=== PATIENT | female | born 1950 | race Caucasian/White ===

== ENCOUNTER 2019-06-10 05:21 | Emergency (ER) | payer BC, MEDICARE ==
[~2019-06-10] VITALS: Ht 154.9 cm; Wt 64.0 kg
[2019-06-10] MEDS ORDERED: VERAPAMIL ER180 MG PO (05:36)
[2019-06-10] MEDS ORDERED: HYDROCHLOROTH12.5 MG PO (05:37)
[2019-06-10] MEDS ORDERED: PANCREAZE DR 11 EAC3 PO (05:42)
--- OUTSIDE RECORDS SUMMARY | 2019-06-10 06:30 | XMS ---
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 Annabel VISIT COUNT (12 MO.) 2 [facility] 1 CHITO Tabor TOTAL 3 NOTE: Visits indicate total known visits. ED/UCC VISIT TRACKING (12 MO.) 06/10/2019 05:22 [facility] TYPE: Emergency COMPLAINT: - BACK PAIN [facility] DIAGNOSES: - Dorsalgia, unspecified - Pain - severe nerve pain 04/20/2019 18[facility] DIAGNOSES: - back pain - Spinal stenosis, lumbar region without neurogenic sierra - Lumbago with sciatica, unspecified side INPATIENT VISIT TRACKING (12 MO.) No inpatient visits to display in this time frame [id number]
== END 2019-06-10 06:29 | disposition home or self-care (01) ==
LOC: ED 05:21
DX: G89.29 Other chronic pain (principal); M54.5 Low back pain; F17.200 Nicotine dependence, unspecified, uncomplicated; Z88.8 Allergy status to other drugs, medicaments and biological substances; Z88.5 Allergy status to narcotic agent; Z79.899 Other long term (current) drug therapy
CPT/HCPCS: 99283

== ENCOUNTER 2019-08-12 01:05 | Emergency (ER) | payer BC, MEDICARE ==
[~2019-08-12] VITALS: Ht 154.9 cm; Wt 64.0 kg
--- OUTSIDE RECORDS SUMMARY | ~2019-08-12 | XMS | Encounter Summary ---
Demographics + + + | Address | [address] | | | [place] [address] | + + + | Home Phone | | + + + | Preferred Language | Unknown | + + + | Marital Status | | + + + | Temple Affiliation | 1073 | + + + | Race | Unknown | + + + | Ethnic Group | Unknown | + + + Author + + + | Author | [facility] | | | and Vaughn | + + + | Organization | [facility] | | | and [place] | + + + | Address | Unknown | + + + | Phone | Unavailable | + + + Support + + + + + | Name | Relationship | Address | Phone | + + + + + | Dennis Almazan | KARYN | [address] | | | | | [place] | | | | | [address] | | + + + + + | Jesus Chanel | KARYN | [address] | | | | | [place] [address] | | + + + + + Care Team Providers + +------+ + | Care Milieu Therapist Name | Role | Phone | + +------+ + | Geraldo Montano MD | PCP | | + +------+ + Reason for Visit +---------+ + | Reason | Comments | +---------+ + | Imaging | Orders | +---------+ + Encounter Details +--------+ + + + + | Date | Type | Department | Care Team | Description | +--------+ + + + + | 07/19/ | Telephone | [facility] | João Hill, | Imaging (Orders) | | 2020 | | NEUROSURGERY [address] | | | | | [address] | [address] | | | | | [place], [place] | [place] [address] | | | | | [address] | [phone] | | | | | [phone] | | | +--------+ + + + + Social History + + + +--------+ + | Tobacco Use | Types | Packs/Day | Years | Date | | | | | Used | | + + + +--------+ + | Current Every Day | Cigarettes | 1 | 42 | Started: 02/02/1976 | | Smoker | | | | | + + + +--------+ + + +---+---+---+ | Smokeless Tobacco: | | | | | Never Used | | | | + +---+---+---+ + + +---------+ + | Alcohol Use | Drinks/Week | oz/Week | Comments | + + +---------+ + | No | | | | + + +---------+ + + + + | Sex Assigned at | Date Recorded | | | | + + + | Not on file | | + + + + + + + | Job Start Date | Occupation | Industry | + + + + | Not on file | Not on file | Not on file | + + + + + + + + | Travel History | Travel Start | Travel End | + + + + + + | No recent travel history available. | + + documented as of this encounter Plan of Treatment +--------+---------+ + + + | Date | Type | Specialty | Care Team | Description | +--------+---------+ + + + | 08/13/ | Office | Neurosurgery | João Hill, | | | 2019 | Visit | | [address] | | | | | | [address] | | | | | | [place] [address] | | | | | | [phone] | | | | | | | | +--------+---------+ + + + documented as of this encounter Visit Diagnoses Not on filedocumented in this encounter"
--- OUTSIDE RECORDS SUMMARY | ~2019-08-12 | XMS | Encounter Summary ---
Demographics + + + | Address | [address] | | | [place] [address] | + + + | Home Phone | | + + + | Preferred Language | Unknown | + + + | Marital Status | | + + + | Yarsanism Affiliation | 1073 | + + + | Race | Unknown | + + + | Ethnic Group | Unknown | + + + Author + + + | Author | [facility] | | | and Vaughn | + + + | Organization | [facility] | | | and [...] [place] | | | | | [address] | | + + + + + | Jesus Chanel | ECON | [address] | | | | | [place] [address] | | + + + + + Care Team Providers + +------+ + | Care Petal Cutter Name | Role | Phone | + +------+ + PCP | Unavailable | + +------+ + Encounter Details +--------+ + + + + | Date | Type | Department | Care Team | Description | +--------+ + + + + | 05/07/ | Hospital | [facility] | | | | 2000 | Encounter | MED CTR XRAY [address] | | | | | | [address] | | | | | | [place] [address] | | | | | | [phone] | | | +--------+ + + + + Social History + +-------+ +--------+------+ | Tobacco Use | Types | Packs/Day | Years | Date | | | | | Used | | + +-------+ +--------+------+ | Never Assessed | | | | | + +-------+ +--------+------+ + + + | Sex Assigned at [...] Neurosurgery | João Hill, | | | 2020 | Visit | | [address] | | | | | | [address] | | | | | | [place] [address] | | | | | | [phone] | | | | | | | | +--------+---------+ + + + documented as of this encounter Visit Diagnoses Not on filedocumented in this encounter"
--- OUTSIDE RECORDS SUMMARY | ~2019-08-12 | XMS | Encounter Summary ---
Demographics + + + | Address | [address] | | | [place] [address] | + + + | Home Phone | | + + + | Preferred Language | Unknown | + + + | Marital Status | | + + + | Yazdanism Affiliation | 1073 | + + + | Race | Unknown | + + + | Ethnic Group | Unknown | + + + Author + + + | Author | [facility] | | | and [place]n | + + + | Organization | [facility] | | | and [...] [place] | | | | | [address] | | + + + + + | Jesus Chanel | ECON | [address] | | | | | [place] [address] | | + + + + + Care Team Providers + +------+ + | Care Hydraulic Press Tender Name | Role | Phone | + +------+ + PCP | Unavailable | + +------+ + Encounter Details +--------+ + + + + | Date | Type | Department | Care Team | Description | +--------+ + + + + | 05/09/ | Hospital | [facility] | | | | 2000 | Encounter | MED CTR EMERGENCY | | | | | | CENTER [address] | | | | | | [place] | | | | | | [address] | | | | | | [phone] | | | +--------+ + + + [...] B | | | | | | [place] [address] | | | | | | [phone] | | | | | | | | +--------+---------+ + + + documented as of this encounter Visit Diagnoses Not on filedocumented in this encounter"
--- OUTSIDE RECORDS SUMMARY | ~2019-08-12 | XMS | Encounter Summary ---
Demographics + + + | Address | [address] | | | [place] [address] | + + + | Home Phone | | + + + | Preferred Language | Unknown | + + + | Marital Status | | + + + | Anglican Affiliation | 1073 | + + + | Race | Unknown | + + + | Ethnic Group | Unknown | + + + Author + + + | Author | [facility] | | | and [place]n | + + + | Organization | [facility] | | | [...] [place] | | | | | [address] | | + + + + + | Jesus Chanel | ECON | [address] | | | | | [place] [address] | | + + + + + Care Team Providers + +------+ + | Care Case Picker Name | Role | Phone | + +------+ + | Geraldo Montano MD | PCP | | + +------+ + Reason for Referral Diagnostic/Screening (Emergency) +--------+--------+ + + + + | Status | Reason | Specialty | Diagnoses / | Referred By | Referred To | | | | | Procedures | Contact | Contact | +--------+--------+ + + + + | Closed | | Radiology | Diagnoses | Aquino, | [facility] | | | | | Neurogenic | Faustino Alejandre MD | [address] | | | | | bowel Full | [address] | [place], | | | | | incontinence | [address] | [place] | | | | | of feces | [place], | [address] | | | | | Chronic | [place] [address] | Phone: | | | | | midline low | Phone: | [phone] | | | | | back pain | [phone] | Fax: | | | | | with | Fax: | [phone] | | | | | bilateral | [phone] | | | | | | sciatica | | | | | | | Hyperreflexi | | | | | | | a Right leg | | | | | | | weakness | | | | | | | Numbness and | | | | | | | tingling of | | | | | | | both lower | | | | | | | extremities | | | | | | | | | | | | | | Fibromyalgia | | | | | | | Procedures | | | | | | | MRI Lumbar | | | | | | | Spine w wo | | | | | | | Contrast | | | +--------+--------+ + + + + Reason for Visit Diagnostic/Screening (Emergency) +--------+--------+ + + + + | Status | Reason | Specialty | Diagnoses / | Referred By | Referred To | | | | | Procedures | Contact | Contact | +--------+--------+ + + + + | Closed | | Radiology | Diagnoses | Aquino, | [facility] | | | | | Neurogenic | Faustino Alejandre MD | [address] | | | | | bowel Full | [address] | [place], | | | | | incontinence | [address] | [place] | | | | | of feces | [place], | [address] | | | | | Chronic | [place] [address] | Phone: | | | | | midline low | Phone: | [phone] | | | | | back pain | [phone] | Fax: | | | | | with | Fax: | [phone] | | | | | bilateral | [phone] | | | | | | sciatica | | | | | | | Hyperreflexi | | | | | | | a Right leg | | | | | | | weakness | | | | | | | Numbness and | | | | | | | tingling of | | | | | | | both lower | | | | | | | extremities | | | | | | | | | | | | | | Fibromyalgia | | | | | | | Procedures | | | | | | | MRI Lumbar | | | | | | | Spine w wo | | | | | | | Contrast | | | +--------+--------+ + + + + Encounter Details +--------+ + + + + | Date | Type | Department | Care Team | Description | +--------+ + + + + | 03/07/ | Hospital | [facility] | Faustino Aquino, | Neurogenic bowel; | | 2018 | Encounter | MED CTR MRI [address] | MD [address] | Full incontinence of | | | | [place], | [place], [place] | feces; Chronic | | | | [place] [address] | [address] | midline low back | | | | [phone] | | pain with bilateral | | | | | | sciatica; | | | | | | Hyperreflexia; Right | | | | | | leg weakness; | | | | | | Numbness and | | | | | | tingling of both | | | | | | lower extremities; | | | | | | Fibromyalgia | +--------+ + + + + Social History + + + +--------+ + | Tobacco Use | Types | Packs/Day | Years | Date | | | | | Used | | + + + +--------+ + | Current Every Day | Cigarettes | 1.5 | 42 | Started: 02/02/1976 | | [...] + + documented as of this encounter Medications at Time of Discharge + + + +---------+ + + | Medication | Sig | Dispensed | Refills | Start | End Date | | | | | | Date | | + + + +---------+ + + | cyanocobalamin | Take 100 mcg by | | 0 | | | | (VITAMIN B-12) 100 | mouth Daily. | | | | | | MCG tablet | | | | | | + + + +---------+ + + | Liniments | Apply topically. | | 0 | | | | (THERAPEUTIC BLUE | | | | | | | ICE EX) | | | | | | + + + +---------+ + + | tocopherol | Take 400 Units by | | 0 | | | | (VITAMIN E) 100 | mouth Daily. Take 2 | | | | | | units capsule | daily | | | | | + + + +---------+ + + | verapamil (CALAN | Take 180 mg by mouth | | 0 | 06/01/19 | | | SR) 180 mg SR tablet | 2 times daily. | | | 18 | | + + + +---------+ + + | B complex vitamins | Take 1 tablet by | | 0 | | | | tablet | mouth Daily. | | | | 9 | + + + +---------+ + + | cholecalciferol | Take 1 capsule by | | 0 | | | | (VITAMIN D-3) 1,000 | mouth Daily. | | | | 0 | | units capsule | | | | | | + + + +---------+ + + | clonazePAM | Take 0.5 mg by mouth | | 0 | 06/08/19 | | | (KLONOPIN) 0.5 mg | 3 times daily as | | | 18 | 0 | | tablet | needed. For Anxiety | | | | | | | or seizures. Fill | | | | | | | when due @@ SF MF | | | | | + + + +---------+ + + | diclofenac | Apply 2-4 g | | 0 | 01/08/20 | | | (VOLTAREN) 1% GEL | topically Twice | | | 17 | 0 | | | daily as needed for | | | | | | | Pain. Apply to | | | | | | | affected joint for | | | | | | | arthritis pain. | | | | | + + + +---------+ + + | FLUoxetine | Take 1 capsule by | | 0 | 10/22/19 | | | (PROZAC) 40 MG | mouth Daily. | | | 18 | 0 | | capsule | | | | | | + + + +---------+ + + | fluticasone | 2 sprays by Nasal | | 0 | 08/19/19 | | | (FLONASE) 50 | route Daily. | | | 17 | 0 | | mcg/nasal spray | | | | | | + + + +---------+ + + | GARLIC PO | Take 0.5 tablets by | | 0 | | | | | mouth 2 times daily. | | | | 9 | + + + +---------+ + + | | Take 25 mg by mouth | | 0 | 06/01/19 | | | hydroCHLOROthiazide | Daily. | | | 18 | 9 | | 25 mg tablet | | | | | | + + + +---------+ + + | ibuprofen (ADVIL, | Take 200 mg by mouth | | 0 | | | | MOTRIN) 200 mg | every 6 hours as | | | | 0 | | tablet | needed. | | | | | + + + +---------+ + + | Multiple | Take 1 capsule by | | 0 | | | | Vitamins-Minerals | mouth. | | | | 0 | | (EYE VITAMINS) CAPS | | | | | | + + + +---------+ + + | nortriptyline | Take 50 mg by mouth | | 0 | 07/09/19 | | | (PAMELOR) 50 MG | nightly. | | | 18 | 0 | | capsule | | | | | | + + + +---------+ + + documented as of this encounter Plan of Treatment +--------+---------+ + + + | Date | Type | Specialty | Care Team | Description | +--------+---------+ + + + | 08/13/ | Office | Neurosurgery | João Hill, | | | 2020 | Visit | | SAND ANALYST [address] | [address] | | [address] | | | | | | [place] [address] | | | | | | [phone] | | | | | | | | +--------+---------+ + + + documented as of this encounter Procedures + +--------+ + + + | Procedure Name | Priori | Date/Time | Associated Diagnosis | Comments | | | ty | | | | + +--------+ + + + | MRI LUMBAR SPINE W | STAT | 03/07/2018 | Neurogenic bowel | Results for this | | WO CONTRAST | | 11:22 AM | Full incontinence of | procedure are in the | | | | PST | feces Chronic | results section. | | | | | midline low back | | | | | | pain with bilateral | | | | | | sciatica | | | | | | Hyperreflexia Right | | | | | | leg weakness | | | | | | Numbness and | | | | | | tingling of both | | | | | | lower extremities | | | | | | Fibromyalgia | | + +--------+ + + + documented in this encounter Results MRI Lumbar Spine w wo Contrast (03/07/2018 11:22 AM PST) + + | Specimen | + + | | + + + + + | Narrative | Performed At | + + + | MRI LUMBAR SPINE W WO CONTRAST 03/07/2018 9:50 AM HISTORY: | [facility] | | Neurogenic bowel. COMPARISON: None. PROTOCOL: Sagittal T2, | | | sagittal T1, axial T2, axial T1, sagittal STIR, coronal T2, sagittal | | | T1 fat sat postgadolinium, axial T1 fat sat post gadolinium. The | | | patient was administered 7 cc Gadavist. FINDINGS: Vertebral body | | | height are preserved. Mild spondylosis is present. Round structures | | | with high T1 and T2 signal are observed at multiple vertebral body | | | levels with the largest at level L3 that would be most consistent with | | | hemangiomas. Mild disc narrowing is at L3-4. Imaged spinal | | | cord and cauda equina demonstrate normal signal with no evidence for | | | myelomalacia or mass lesions. The conus medullaris terminates at level | | | L2, which is normal. Sagittal images show tiny posterior disc | | | bulging of the lower thoracic spine down through level L2-3 with no | | | significant stenosis. L3-4: A 5 mm posterior disc bulge is present | | | along with tearing of the annulus. There is encroachment upon the | | | right L4 descending nerve root. Moderate facet hypertrophy are | | | present along with small facet effusions. There is moderate to severe | | | central stenosis with AP dimension of the canal measuring 7 mm. Mild | | | to moderate bilateral neural foraminal canal stenoses are noted. | | | L4-5: A 4 mm posterior disc bulge is present along with tearing of | | | the annulus. Moderate facet hypertrophy are present along with small | | | facet effusions. There is moderate to severe central stenosis with AP | | | dimension of the canal measuring 7 mm. Mild to moderate bilateral | | | neural foraminal canal stenoses are noted. L5-S1: A 3 mm | | | posterior disc bulge is present with tearing of the annulus. Moderate | | | to severe facet hypertrophy is observed. There is no central | | | stenosis. Mild to moderate right neural foraminal canal stenosis is | | | seen. 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 At least 2 small cysts are seen of the left kidney. | | | IMPRESSION - Multilevel degenerative changes including moderate to | | | severe central stenoses at L3-4 and L4-5. There is encroachment upon | | | the right L4 descending nerve root by the disc herniation at level | | | L3-4. Multilevel mild to moderate neural foraminal canal stenoses are | | | observed. 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 This can be followed with ultrasound as clinically indicated. | | | Dictated and Signed by: Riley Altman MD Electronically | | | signed: 03/07/2018 12:28 PM | | + + + + + | Procedure Note | + + | Alec, Rad Results In - 03/07/2018 12:31 PM PST MRI LUMBAR SPINE W WO CONTRAST | | 03/07/2018 9:50 AM HISTORY: Neurogenic bowel.COMPARISON: None.PROTOCOL: Sagittal T2, | | sagittal T1, axial T2, axial T1, sagittal STIR, coronalT2, sagittal T1 fat sat | | postgadolinium, axial T1 fat sat post gadolinium. Thepatient was administered 7 cc | | Gadavist.FINDINGS:Vertebral body height are preserved. Mild spondylosis is present. | | Roundstructures with high T1 and T2 signal are observed at multiple vertebral bodylevels | | with the largest at level L3 that would be most consistent withhemangiomas.Mild disc | | narrowing is at L3-4. Imaged spinal cord and cauda equina demonstrate normal signal with | | no evidencefor myelomalacia or mass lesions. The conus medullaris terminates at level | | L2,which is normal.Sagittal images show tiny posterior disc bulging of the lower | | thoracic spinedown through level L2-3 with no significant stenosis.L3-4: A 5 mm | | posterior disc bulge is present along with tearing of the annulus.There is encroachment | | upon the right L4 descending nerve root. Moderate facethypertrophy are present along | | with small facet effusions. There is moderate tosevere central stenosis with AP | | dimension of the canal measuring 7 mm. Mild tomoderate bilateral neural foraminal canal | | stenoses are noted. L4-5: A 4 mm posterior disc bulge is present along with tearing of | | the annulus.Moderate facet hypertrophy are present along with small facet effusions. | | Thereis moderate to severe central stenosis with AP dimension of the canal measuring7 | | mm. Mild to moderate bilateral neural foraminal canal stenoses are noted. L5-S1: A 3 mm | | posterior disc bulge is present with tearing of the annulus.Moderate to severe facet | | hypertrophy is observed. There is no central stenosis.Mild to moderate right neural | | foraminal canal stenosis is seen.There is ectasia of the right common iliac artery | | measuring up to 1.8 cm. Atleast 2 small cysts are seen of the left kidney.IMPRESSION | | -Multilevel degenerative changes including moderate to severe central stenoses atL3-4 | | and L4-5. There is encroachment upon the right L4 descending nerve root bythe disc | | herniation at level L3-4. 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 This can | | befollowed with ultrasound as clinically indicated.Dictated and Signed by: Riley Altman | | Electronically signed: 03/07/2018 12:28 PM | |moderate bilateral neural foraminal canal stenoses are noted. | | | |L4-5: A 4 mm posterior disc bulge is present along with tearing of the annulus. | |Moderate facet hypertrophy are present along with small facet effusions. There | |is moderate to severe central stenosis with AP dimension of the canal measuring | |7 mm. Mild to moderate bilateral neural foraminal canal stenoses are noted. | | | |L5-S1: A 3 mm posterior disc bulge is present with tearing of the annulus. | |Moderate to severe facet hypertrophy is observed. There is no central stenosis. | |Mild to moderate right neural foraminal canal stenosis is seen. 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 At | |least 2 small cysts are seen of the left kidney. | | | |IMPRESSION - | |Multilevel degenerative changes including moderate to severe central stenoses at | |L3-4 and L4-5. There is encroachment upon the right L4 descending nerve root by | |the disc herniation at level L3-4. Multilevel mild to moderate neural foraminal | |canal stenoses are observed. 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 This can be | |followed with ultrasound as clinically indicated. | | | |Dictated and Signed by: Riley Altman MD | | Electronically signed: 03/07/2018 12:28 PM | + + + +---------+ + + | Performing | Address | City/State/Zipcode | Phone Number | | Organization | | | | + +---------+ + + | [facility] | | | | + +---------+ + + documented in this encounter Visit Diagnoses + + | Diagnosis | + + | Neurogenic bowel | + + | Full incontinence of feces | + + | Chronic midline low back pain with bilateral sciatica | + + | Hyperreflexia Abnormal reflex | + + | Right leg weakness Other musculoskeletal symptoms referable to limbs | + + | Numbness and tingling of both lower extremities | + + | Fibromyalgia Mylagia and myositis, unspecified | + + documented in this encounter"
--- OUTSIDE RECORDS SUMMARY | ~2019-08-12 | XMS | Encounter Summary ---
Demographics + + + | Address | [address] | | | [place] [address] | + + + | Home Phone | | + + + | Preferred Language | Unknown | + + + | Marital Status | | + + + | Gnosticist Affiliation | 1073 | + + + | Race | Unknown | + + + | Ethnic Group | Unknown | + + + Author + + + | Author | [facility] | | | and [place] | + + + | Organization | [facility] | | | and [...] [place] | | | | | [address] | | + + + + + | Jesus Chanel | KARYN | [address] | | | | | [place] [address] | | + + + + + Care Team Providers + +------+ + | Care Ring Sewer Name | Role | Phone | + +------+ + | Geraldo Montano MD | PCP | | + +------+ + Encounter Details +--------+ + + + + | Date | Type | Department | Care Team | Description | +--------+ + + + + | 07/15/ | Hospital | [facility] | Geraldo Montano MD | Breast screening | | 2018 | Encounter | [facility] | [address] [facility] | | | | | [address] | [place], [place] | | | | | [place], [place] | [address] | | | | | [address] | | | | | | [phone] | | | +--------+ + + + + Social History + +-------+ +--------+------+ | Tobacco Use | Types | Packs/Day | Years | Date | | | | | Used | | + +-------+ +--------+------+ | Current Every Day | | 1 | 42 | | | Smoker | | | | | + +-------+ +--------+------+ + +---+---+---+ | Smokeless Tobacco: | | [...] | | | | when due @@ MF | | | | | + + + +---------+ + + | clonazePAM | 1/2 twice daily | | 0 | 12/31/19 | | | (KLONOPIN) 1 mg | | | | 12 | 8 | | tablet | | | | | | + + + +---------+ + + | cyclobenzaprine | Take 10 mg by mouth | | 0 | 04/14/20 | | | (FLEXERIL) 10 mg | nightly as needed. | | | 17 | 8 | | tablet | For up to 20 days. | | | | | + + [...] + + + +---------+ + + | fluconazole | Take 150 mg by mouth | | 0 | 07/04/19 | | | (DIFLUCAN) 150 mg | Daily. Repeat dose | | | 16 | 8 | | tablet | in 72 hours if | | | | | | | severe | | | | | + + + +---------+ + + | fluoxetine | Take 40 mg by mouth | | 0 | | | | (PROZAC) 40 MG | Daily. | | | | 8 | | capsule | | | | [...] + +---------+ + + | | Take 10-500 mg by | | 0 | 12/31/19 | | | hydrocodone-acetamin | mouth 3 times daily | | | 12 | 8 | | ophen (LORTAB 10) | as needed. | | | | | | 10-500 MG per tablet | | | | | | + + + +---------+ + + | nortriptyline | Take 50 mg by mouth | | 0 | 07/09/19 | | | (PAMELOR) 50 MG | nightly. | | | 18 | 0 | | capsule | | | | | | + + + +---------+ + + | propranolol | Take 10 mg by mouth | | 0 | 05/07/19 | | | (INDERAL) 10 mg | 2 times daily. | | | 18 | 8 | | tablet | | | | | | + + + +---------+ + + | propranolol | Take 10 mg by mouth | | 0 | | | | (INDERAL) 10 mg | 2 times daily. | | | | 8 | | tablet | | | | | | + + + +---------+ + + | verapamil (VERELAN | Take 240 mg by mouth | | 0 | 12/31/19 | | | PM) 240 MG 24 hr | Daily. | | | 12 | 8 | | capsule | | | | | | + + + +---------+ + + documented as of this encounter Plan of Treatment +--------+---------+ + + + | Date | Type | Specialty | Care Team | Description | +--------+---------+ + + + | 08/13/ | Office | Neurosurgery | João Hill, | | | 2019 | Visit | | [facility] [address] | [address] | | | | | | [place] [address] | | | | | | [phone] | | | | | | | | +--------+---------+ + + + documented as of this encounter Procedures + +--------+ + + + | Procedure Name | Priori | Date/Time | Associated Diagnosis | Comments | | | ty | | | | + +--------+ + + + | MERA TOMOSYN | Routin | 07/15/2017 | Breast screening | Results for this | | SCREENING BILATERAL | e | 9:34 AM | | procedure are in the | | | | PDT | | results section. | + +--------+ + + + documented in this encounter Results MERA Tomosynthesis Screening Bilateral (07/15/2017 9:34 AM PDT) + + | Specimen | + + | | + + + + + | Narrative | Performed At | + + + | EXAM: MERA TOMOSYN SCREENING BILATERAL dated 07/15/2017 8:48 AM | [facility] | | HISTORY: Routine Screening. Patient has history of left excisional | | | biopsy. TECHNIQUE: Bilateral digital CC and MLO. Mio synthesis | | | is performed. CAD utilized. COMPARISON: Mammograms dating back | | | to 2015 and 2013 FINDINGS: Heterogeneously dense breast parenchyma | | | is present bilaterally, which may obscure masses. The pattern is | | | stable and symmetric. There are no areas of developing | | | architectural distortion. There are no suspicious masses. There | | | are no suspicious clusters of microcalcifications. Scattered benign | | | calcifications are again seen bilaterally, these are stable and | | | unchanged. Mio images demonstrate no suspicious mass or | | | architectural distortion. Images were reviewed with CAD. | | | IMPRESSION - BI-RADS CATEGORY 2: BENIGN FINDINGS | | | RECOMMENDATION: Normal annual screening interval. Dictated and | | | Signed by: Rolan Kirk MD Electronically signed: 07/16/2017 | | | 11:54 AM | | + + + + + | Procedure Note | + + | Alec, Rad Results In - 07/16/2017 11:57 AM PDT EXAM: MERA TOMOSYN SCREENING BILATERAL | | dated 07/15/2017 8:48 AMHISTORY: Routine Screening. Patient has history of left | | excisional biopsy.TECHNIQUE: Bilateral digital CC and MLO. Mio synthesis is performed. | | CADutilized.COMPARISON: Mammograms dating back to 2016 and 2014FINDINGS: | | Heterogeneously dense breast parenchyma is present bilaterally, whichmay obscure masses. | | The pattern is stable and symmetric. There are no areas ofdeveloping architectural | | distortion. There are no suspicious masses. There areno suspicious clusters of | | microcalcifications. Scattered benign calcificationsare again seen bilaterally, these | | are stable and unchanged.Mio images demonstrate no suspicious mass or architectural | | distortion. Imageswere reviewed with CAD.IMPRESSION -BI-RADS CATEGORY 2: BENIGN | | FINDINGSRECOMMENDATION: Normal annual screening interval.Dictated and Signed by: Rolan | | MD Yelena Electronically signed: 07/16/2017 11:54 AM | |no suspicious clusters of microcalcifications. Scattered benign calcifications | |are again seen bilaterally, these are stable and unchanged. | | | |Mio images demonstrate no suspicious mass or architectural distortion. Images | |were reviewed with CAD. | | | |IMPRESSION - | | | |BI-RADS CATEGORY 2: BENIGN FINDINGS | | | |RECOMMENDATION: Normal annual screening interval. | | | |Dictated and Signed by: Rolan Kirk MD | | Electronically signed: 07/16/2017 11:54 AM | + + + +---------+ + + | Performing | Address | City/State/Zipcode | Phone Number | | Organization | | | | + +---------+ + + | [facility] | | | | + +---------+ + + documented in this encounter Visit Diagnoses + + | Diagnosis | + + | Breast screening Breast screening, unspecified | + + documented in this encounter"
--- OUTSIDE RECORDS SUMMARY | ~2019-08-12 | XMS | Encounter Summary ---
Demographics + + + | Address | [address] | | | [place] [address] | + + + | Home Phone | | + + + | Preferred Language | Unknown | + + + | Marital Status | | + + + | Bahai Affiliation | 1073 | + + + [...] [place] | | | | | [address] | | + + + + + | Jesus Chanel | ECON | [address] | | | | | [place] [address] | | + + + + + Care Team Providers + +------+ + | Care Piping Designer Name | Role | Phone | + +------+ + | Geraldo Montano MD | PCP | | + +------+ + Reason for Referral Diagnostic/Screening (Routine) +--------+--------+ + + + + | Status | Reason | Specialty | Diagnoses / | Referred By | Referred To | | | | | Procedures | Contact | Contact | +--------+--------+ + + + + | Closed | | Radiology | Diagnoses | Aquino, | [facility] | | | | | Cervicalgia | Faustino Alejandre MD | [address] | | | | | Hand | [address] | [place], | | | | | weakness | [address] | [place] | | | | | Numbness and | [place], | [address] | | | | | tingling in | [place] [address] | Phone: | | | | | both hands | Phone: | [phone] | | | | | | [phone] | Fax: | | | | | Hyperreflexi | Fax: | [phone] | | | | | a | [phone] | | | | | | Fibromyalgia | | | | | | | Procedures | | | | | | | MRI | | | | | | | Cervical | | | | | | | Spine w wo | | | | | | | Contrast | | | +--------+--------+ + + + + Reason for Visit Diagnostic/Screening (Routine) +--------+--------+ + + + + | Status | Reason | Specialty | Diagnoses / | Referred By | Referred To | | | | | Procedures | Contact | Contact | +--------+--------+ + + + + | Closed | | Radiology | Diagnoses | Aquino, | [facility] | | | | | Cervicalgia | Faustino Alejandre MD | [address] | | | | | Hand | [address] | [place], | | | | | weakness | [address] | [place] | | | | | Numbness and | [place], | [address] | | | | | tingling in | [place] [address] | Phone: | | | | | both hands | Phone: | [phone] | | | | | | [phone] | Fax: | | | | | Hyperreflexi | Fax: | [phone] | | | | | a | [phone] | | | | | | Fibromyalgia | | | | | | | Procedures | | | | | | | MRI | | | | | | | Cervical | | | | | | | Spine w wo | | | | | | | Contrast | | | +--------+--------+ + + + + Encounter Details +--------+ + + + + | Date | Type | Department | Care Team | Description | +--------+ + + + + | 03/07/ | Hospital | [facility] | Faustino Aquino, | Cervicalgia; Hand | | 2018 | Encounter | MED CTR MRI [address] | MD [address] | weakness; Numbness | | | | [address], | [place], [place] | and tingling in both | | | | [place] [address] | [address] | hands; | | | | [phone] | | Hyperreflexia; | | | | | | Fibromyalgia [...] | | 2019 | Visit | | [facility] [address] | [address] | | | | | | [place] [address] | | | | | | [phone] | | | | | | | | +--------+---------+ + + + documented as of this encounter Procedures + +--------+ + + + | Procedure Name | Priori | Date/Time | Associated Diagnosis | Comments | | | ty | | | | + +--------+ + + + | MRI CERVICAL SPINE W | Routin | 03/07/2018 | Cervicalgia Hand | Results for this | | WO CONTRAST | e | 11:19 AM | weakness Numbness | procedure are in the | | | | PST | and tingling in both | results section. | | | | | hands | | | | | | Hyperreflexia | | | | | | Fibromyalgia | | + +--------+ + + + documented in this encounter Results MRI Cervical Spine w wo Contrast (03/07/2018 11:19 AM PST) + + | Specimen | + + | | + + + + + | Narrative | Performed At | + + + | MRI CERVICAL SPINE W WO CONTRAST 03/07/2018 9:50 AM HISTORY: | [facility] | | Cervicalgia. COMPARISON: None. PROTOCOL: Sagittal T2, sagittal | | | T1, axial T2, axial GRE, sagittal STIR, coronal STIR, coronal T1, | | | sagittal T1 fat sat post gadolinium. The patient was administered 6 | | | cc Gadavist. FINDINGS: Visualized brain and skull base | | | demonstrate no acute findings. Prevertebral soft tissues are normal. | | | Vertebral body height are preserved. Minimal anterolistheses are | | | visualized of C3 over C4, C4 over C5, and C7 over T1. Modic type II | | | changes are at multiple levels. Mild disc narrowing are at C4-5 | | | and C5-6. Moderate disc narrowing is at C6-7. The spinal cord | | | demonstrates normal signal with no evidence for myelomalacia or mass | | | lesions. The atlantoaxial joint demonstrates no acute findings. | | | C2-3: A 1 mm posterior disc osteophyte complex is present along with | | | moderate facet hypertrophy. There is no central stenosis. Mild right | | | neural foraminal canal stenosis is seen. C3-4: A 1 mm posterior | | | disc bulge is present along with moderate facet hypertrophy. There is | | | mild central stenosis with AP dimension of the canal measuring 10 | | | mm. No neural foraminal canal stenosis is visualized. C4-5: A 2 mm | | | posterior disc bulge is present along with moderate right and severe | | | left facet hypertrophy. There is moderate central stenosis with AP | | | dimension of the canal measuring 8 mm. Severe right and moderate left | | | neural foraminal canal stenoses are noted. C5-6: A 1 mm posterior | | | disc bulge is present along with moderate facet hypertrophy and | | | uncovertebral hypertrophy. There is mild central stenosis with AP | | | dimension of the canal measuring 9 mm. Mild right and severe left | | | neural foraminal stenoses are noted. C6-7: A 2 mm posterior disc | | | osteophyte complex is present along with mild facet hypertrophy and | | | uncovertebral joint hypertrophy. There is moderate central stenosis | | | with AP dimension of the canal measuring 8 mm. Moderate bilateral | | | foraminal stenoses are visualized. C7-T1: Left uncovertebral | | | hypertrophy is present with moderate left neural foraminal canal | | | stenosis. Soft tissue structures of the neck are unremarkable. | | | Mild right curvature of the thoracic spine is present. Mild | | | spondylosis is noted of the thoracic spine. Posterior disc bulging | | | are present at multilevel levels, most significant at C6-7 that leads | | | to mild central stenosis. IMPRESSION - Multilevel degenerative | | | changes including moderate central stenoses at C4-5 and C6-7 and mild | | | central stenoses at C3-4 and C5-6. Prominent neural foraminal | | | stenoses are observed as described above. Dictated and Signed by: | | | Riley Altman MD Electronically signed: 03/07/2018 12:56 PM | | + + + + + | Procedure Note | + + | Alec, Rad Results In - 03/07/2018 12:59 PM PST MRI CERVICAL SPINE W WO CONTRAST | | 03/07/2018 9:50 AM HISTORY: Cervicalgia.COMPARISON: None.PROTOCOL: Sagittal T2, sagittal | | T1, axial T2, axial GRE, sagittal STIR, coronalSTIR, coronal T1, sagittal T1 fat sat | | post gadolinium. The patient wasadministered 6 cc Gadavist.FINDINGS:Visualized brain and | | skull base demonstrate no acute findings. Prevertebral softtissues are normal.Vertebral | | body height are preserved. Minimal anterolistheses are visualized ofC3 over C4, C4 over | | C5, and C7 over T1. Modic type II changes are at multiplelevels.Mild disc narrowing are | | at C4-5 and C5-6. Moderate disc narrowing is at C6-7.The spinal cord demonstrates | | normal signal with no evidence for myelomalacia ormass lesions.The atlantoaxial joint | | demonstrates no acute findings.C2-3: A 1 mm posterior disc osteophyte complex is present | | along with moderatefacet hypertrophy. There is no central stenosis. Mild right neural | | foraminalcanal stenosis is seen.C3-4: A 1 mm posterior disc bulge is present along with | | moderate facethypertrophy. There is mild central stenosis with AP dimension of the | | canalmeasuring 10 mm. No neural foraminal canal stenosis is visualized.C4-5: A 2 mm | | posterior disc bulge is present along with moderate right andsevere left facet | | hypertrophy. There is moderate central stenosis with APdimension of the canal measuring | | 8 mm. Severe right and moderate left neuralforaminal canal stenoses are noted.C5-6: A 1 | | mm posterior disc bulge is present along with moderate facethypertrophy and | | uncovertebral hypertrophy. There is mild central stenosis withAP dimension of the canal | | measuring 9 mm. Mild right and severe left neuralforaminal stenoses are noted.C6-7: A 2 | | mm posterior disc osteophyte complex is present along with mild facethypertrophy and | | uncovertebral joint hypertrophy. There is moderate centralstenosis with AP dimension of | | the canal measuring 8 mm. Moderate bilateralforaminal stenoses are visualized.C7-T1: | | Left uncovertebral hypertrophy is present with moderate left neuralforaminal canal | | stenosis.Soft tissue structures of the neck are unremarkable.Mild right curvature of the | | thoracic spine is present. Mild spondylosis is notedof the thoracic spine. Posterior | | disc bulging are present at multilevel levels,most significant at C6-7 that leads to | | mild central stenosis.IMPRESSION -Multilevel degenerative changes including moderate | | central stenoses at C4-5 andC6-7 and mild central stenoses at C3-4 and C5-6. Prominent | | neural foraminalstenoses are observed as described above.Dictated and Signed by: Riley | | MD Agapito Electronically signed: 03/07/2018 12:56 PM | |measuring 10 mm. No neural foraminal canal stenosis is visualized. | | | |C4-5: A 2 mm posterior disc bulge is present along with moderate right and | |severe left facet hypertrophy. There is moderate central stenosis with AP | |dimension of the canal measuring 8 mm. Severe right and moderate left neural | |foraminal canal stenoses are noted. | | | |C5-6: A 1 mm posterior disc bulge is present along with moderate facet | |hypertrophy and uncovertebral hypertrophy. There is mild central stenosis with | |AP dimension of the canal measuring 9 mm. Mild right and severe left neural | |foraminal stenoses are noted. | | | |C6-7: A 2 mm posterior disc osteophyte complex is present along with mild facet | |hypertrophy and uncovertebral joint hypertrophy. There is moderate central | |stenosis with AP dimension of the canal measuring 8 mm. Moderate bilateral | |foraminal stenoses are visualized. | | | |C7-T1: Left uncovertebral hypertrophy is present with moderate left neural | |foraminal canal stenosis. | | | |Soft tissue structures of the neck are unremarkable. | | | |Mild right curvature of the thoracic spine is present. Mild spondylosis is noted | |of the thoracic spine. Posterior disc bulging are present at multilevel levels, | |most significant at C6-7 that leads to mild central stenosis. | | | |IMPRESSION - | |Multilevel degenerative changes including moderate central stenoses at C4-5 and | |C6-7 and mild central stenoses at C3-4 and C5-6. Prominent neural foraminal | |stenoses are observed as described above. | | | |Dictated and Signed by: Riley Altman MD | | Electronically signed: 03/07/2018 12:56 PM | + + + +---------+ + + | Performing | Address | City/State/Zipcode | Phone Number | | Organization | | | | + +---------+ + + | [facility] | | | | + +---------+ + + documented in this encounter Visit Diagnoses + + | Diagnosis | + + | Cervicalgia | + + | Hand weakness Muscle weakness (generalized) | + + | Numbness and tingling in both hands | + + | Hyperreflexia Abnormal reflex | + + | Fibromyalgia Mylagia and myositis, unspecified | + + documented in this encounter Administered Medications + +--------+ +-------+------+------+ | Medication Order | MAR | Action | Dose | Rate | Site | | | Action | Date | | | | + +--------+ +-------+------+------+ | gadobutrol (GADAVIST) injection | Given | 03/07/20 | 6 mLs | | | | 6 mL 6 mL, Intravenous, ONCE | | 18 11:21 | | | | | PRN, Other, Starting 03/07/18 | | AM PST | | | | | at 1121, For 1 dose, MRI | | | | | | + +--------+ +-------+------+------+ +---+---+ | | | +---+---+ documented in this encounter"
--- OUTSIDE RECORDS SUMMARY | ~2019-08-12 | XMS | Encounter Summary ---
Demographics + + + | Address | [address] | | | [place] [address] | + + + | Home Phone | | + + + | Preferred Language | Unknown | + + + | Marital Status | | + + + | Rastafari Affiliation | [id number] | + + + | Race | Unknown | + + + | Ethnic Group | Unknown | + + + Author + + + | Author | [facility] | | | and Vaughn | + + + | Organization | [facility] | | | [...] [place] | | | | | [address] | | + + + + + | Jesus Chanel | ECON | [address] | | | | | [place] [address] | | + + + + + Care Team Providers + +------+ + | Care Cone Marker Name | Role | Phone | + +------+ + PCP | Unavailable | + +------+ + Encounter Details +--------+ + + + + | Date | Type | Department | Care Team | Description | +--------+ + + + + | 08/27/ | Hospital | [facility] | Armand Torrez | | | 2010 | Encounter | MED CTR XRAY [address] | | | | | [place] | [address] [place], [place] | | | | | [place] [address] | [address] | | | | | [phone] | | | +--------+ + + + [...] | | 2019 | Visit | | 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 | + +--------+ + + + documented in this encounter Results FL Facet Injection (08/27/2010 1:00 PM PDT) + + | Specimen | + + | | + + + + + | Narrative | Performed At | + + + | [facility] Diagnostic Imaging Department | [facility] | | [address] [facility] | [facility] | | PROCEDURE NOTE LUMBAR FACET | DIAG IMG | | INJECTIONS, 08/27/2010 CLINICAL HISTORY: ICD-9 CODE 721.3, | | | LUMBAR SPONDYLOSIS. Ms. Yamileth Chanel presents to the fluoroscopy | | | suite for fluoroscopically-guided bilateral L5-S1 facet injections | | | as part of conservative management for lumbar spondylosis with | | | facet-mediated low back pa in. After informed consent was obtained, | | | the patient lay in the prone position on the fluoroscopy tab le. The | | | areas were identified under fluoroscopic guidance. The areas were | | | prepped and draped in steri le fashion. A 25-gauge, 1-1/2-inch needle | | | was inserted into this region and approximately 3 mL of buf fered 1% | | | lidocaine was infused and a 22-gauge spinal needle was inserted into | | | the superior portion of each facet under fluoroscopic guidance. | | | Confirmation into the joint space was obtained with infusion of | | | approximately 0.5 mL of Isovue contrast which showed outline of the | | | facet joints. Then, a combina tion of 1 mL of 1% lidocaine and 1 mL | | | of 40 mg/mL Kenalog was infused divided between the 2 sides. Th e | | | patient tolerated the procedure well without complications. Pre- and | | | post-procedure blood pressure s were stable. The patient was given | | | verbal as well as written followup instructions, and the patien t | | | reported no significant change in pain symptoms post procedure. | | | Prior to the start of the procedure, the following were performed and | | | verified, including correct pat ient identity, correct site/side | | | marked and visible, agreement on the procedure to be done, correct p | | | atient positioning and an accurate procedure consent form. Any | | | safety precautions based on clinical history and/or medication use | | | have been addressed. I personally performed the procedure above. | | | Dictated Date/Time: 08/27/2010 13:47 Transcribed Date/Time: | | | 08/27/2010 14:47 Arc And Gas Welder: LaureCAYLA <Electronically Signed | | | by Armand Torrez MD> 09/08/10 1035 | | + + + + + | Procedure Note | + + | Alec, Rad Conversion - 05/26/2013 2:54 PM [facility] | | Diagnostic Imaging Department [address] [place] [address] | | PROCEDURE NOTE LUMBAR FACET INJECTIONS, 08/27/2010 | | CLINICAL HISTORY: ICD-9 CODE 721.3, LUMBAR SPONDYLOSIS. Ms. Yamileth Chanel presents to | | the fluoroscopy suite for fluoroscopically-guided bilateral L5-S1 facet injections as | | part of conservative management for lumbar spondylosis with facet-mediated low back | | pain. After informed consent was obtained, the patient lay in the prone position on the | | fluoroscopy table. The areas were identified under fluoroscopic guidance. The areas were | | prepped and draped in sterile fashion. A 25-gauge, 1-1/2-inch needle was inserted into | | this region and approximately 3 mL of buffered 1% lidocaine was infused and a 22-gauge | | spinal needle was inserted into the superior portion of each facet under fluoroscopic | | guidance. Confirmation into the joint space was obtained with infusion of approximately | | 0.5 mL of Isovue contrast which showed outline of the facet joints. Then, a combination | | of 1 mL of 1% lidocaine and 1 mL of 40 mg/mL Kenalog was infused divided between the 2 | | sides. The patient tolerated the procedure well without complications. Pre- and | | post-procedure blood pressures were stable. The patient was given verbal as well as | | written followup instructions, and the patient reported no significant change in pain | | symptoms post procedure. Prior to the start of the procedure, the following were | | performed and verified, including correct patient identity, correct site/side marked and | | visible, agreement on the procedure to be done, correct patient positioning and an | | accurate procedure consent form. Any safety precautions based on clinical history | | and/or medication use have been addressed. I personally performed the procedure above. | | Dictated Date/Time: 08/27/2010 13:47Transcribed Date/Time: 08/27/2010 | | 14:47Transcriptionist: <Electronically Signed by Armand Torrez MD> 09/08/10 | | 1035 | |Prior to the start of the procedure, the following were performed and verified, including c orrect pat | |ient identity, correct site/side marked and visible, agreement on the procedure to be done, correct p | |atient positioning and an accurate procedure consent form. Any safety precautions based on clinical | |history and/or medication use have been addressed. | | | |I personally performed the procedure above. | | | |Dictated Date/Time: 08/27/2010 13:47 | |Transcribed Date/Time: 08/27/2010 14:47 | |Arc And Gas Welder: | |<Electronically Signed by Armand Torrez MD> 09/08/10 1035 | + + + +---------+ + + | Performing | Address | City/State[facility] | Phone Number | | Organization | | | | + +---------+ + + | [place] | | | | | [place] [place] | | | | + +---------+ + + documented in this encounter Visit Diagnoses Not on filedocumented in this encounter"
--- OUTSIDE RECORDS SUMMARY | ~2019-08-12 | XMS | Encounter Summary ---
Demographics + + + | Address | [address] | | | [place] [address] | + + + | Home Phone | | + + + | Preferred Language | Unknown | + + + | Marital Status | | + + + | Faith Affiliation | 1073 | + + + | Race | Unknown | + + + | Ethnic Group | Unknown | + + + Author + + + | Author | [facility] | | | and [place] | + + + | Organization | [facility] | | | [...] [place] | | | | | [address] | | + + + + + | Jesus Chanel | ECON | [address] | | | | | [place] [address] | | + + + + + Care Team Providers + +------+ + | Care Circuit Design Engineer Name | Role | Phone | + +------+ + | Gissel Zhong MD | PCP | | + +------+ + Reason for Referral Evaluate & Treat (Routine) +--------+ + + + + + | Status | Reason | Specialty | Diagnoses / | Referred By | Referred To | | | | | Procedures | Contact | Contact | +--------+ + + + + + | Closed | Specialty | Physical | Diagnoses | [facility], | | | | Services | Therapy | Lumbar | Faustino Alejandre MD | | | | Required | | radiculopath | [address] | | | | | | y Lumbar | [address] | | | | | | degenerative | [place], | | | | | | disc | [place] [address] | | | | | | disease | Phone: | | | | | | Fibromyalgia | [phone] | | | | | | | Fax: | | | | | | | [phone] | | +--------+ + + + + + Rehabilitation (Routine) +--------+ + + + + + | Status | Reason | Specialty | Diagnoses / | Referred By | Referred To | | | | | Procedures | Contact | Contact | +--------+ + + + + + | Closed | Specialty | Physical | Diagnoses | [facility] | Shan, | | | Services | Medicine and | Lumbar | Faustino Alejandre MD | Armand Gonzales MD | | | Required | Rehabilitatio | radiculopath | [address] | | | | n | y | [address] | [address] [place] | | | | | | [place], | [place], [place] | | | | | | [place] [address] | [address] Phone: | | | | | | Phone: | [phone] | | | | | | [phone] | Fax: | | | | | | Fax: | [phone] | | | | | | [phone] | | +--------+ + + + + + Reason for Visit + + + | Reason | Comments | + + + | Back Pain | low | + + + | Neck Pain | | + + + | Leg Pain | bilateral | + + + | Numbness | bilateral hands/feet | + + + | Tingling | bilateral hands/feet | + + + Encounter Details +--------+---------+ + + + | Date | Type | Department | Care Team | Description | +--------+---------+ + + + | 10/05/ | Office | [facility] | Faustino Aquino, | Lumbar radiculopathy | | 2013 | Visit | MEDICINE | MD [address] | (Primary Dx); | | | | REH[address] | [place] | Lumbar degenerative | | | | [address] | [address] | disc disease; | | | | [place] | | Fibromyalgia; | | | | [address] | | Tobacco dependence | | | | [phone] | | | +--------+---------+ + + + Social History + +-------+ [...] + + documented as of this encounter Last Filed Vital Signs + + + + + | Vital Sign | Reading | Time Taken | Comments | + + + + + | Blood Pressure | 132/76 | 10/05/2012 10:56 AM | | | | | PDT | | + + + + + | Pulse | 76 | 10/05/2012 10:56 AM | | | | | PDT | | + + + + + | Temperature | - | - | | + + + + + | Respiratory Rate | 16 | 10/05/2012 10:56 AM | | | | | PDT | | + + + + + | Oxygen Saturation | - | - | | + + + + + | Inhaled Oxygen | - | - | | | Concentration | | | | + + + + + | Weight | 80.8 kg (178 lb 3.2 | 10/05/2012 10:56 AM | | | | oz) | PDT | | + + + + + | Height | 152.4 cm (5') | 10/05/2012 10:56 AM | | | | | PDT | | + + + + + | Body Mass Index | 34.8 | 10/05/2012 10:56 AM | | | | | PDT | | + + + + + documented in this encounter Patient Instructions Patient Instructions Faustino Aquino MD - 10/05/2012 12:00 PM PDTThere are medications felicia t may help with your pain. Please consider using them in the future. Physical therapy has been prescribed. Please participate in physical therapy. If you have not be contacted for an appointment with physical therapy within one week, please contact t he clinic. Once you have completed physical therapy please continue the home exercise progr am as outline by physical therapy, indefinitely. Please attend the injection appointment with Armand Torrez MD. If his office has not co ntacted you within one week, to schedule the injection, please contact my clinic. Your inje ction will be performed at [facility]. Please take note of weather your pain is significantly reduced in the hours immediately following the injecti on. It is recommended that you use weight through diet and exercise. It is recommended that you quit smoking as it does result in increased arthritis and back p ain over time. Please return to the clinic as needed to review the management of your back pain.Electronic ally signed by Faustino Aquino MD at 10/05/2012 12:04 PM PDT documented in this encounter Progress Notes Faustino Aquino MD - 10/05/2012 12:05 PM PDTThis office note has been dictated. Job ID# [id number] signed by Fausitno Aquino MD at 10/05/2012 1:39 PM Kia Franklin RN - 10/05/2012 11:08 AM PDTLow back/neck pain x 6 years. Numbness/tingling in bilatera l hands/feet. Faustino Chakraborty MD - 10/05/2012 12:00 AM PDT PHYSICAL MEDICINE AND REHAB [address] [place] [address] FAX: [phone] OFFICE VISIT PHYSICAL MEDICINE REHABILITATION CONSULT CONSULT REQUESTED BY: Gissel Zhong MD DATE OF SERVICE: 10/05/2012 PATIENT IDENTIFICATION: A 61-year-old female with low back pain that radiates into both low er extremities. Also history of neck pain. HISTORY OF PRESENT ILLNESS: Ms. Chanel has a history of low back pain. She indicates that he r back pain has been present for 6 or more years. She rates her current back pain as an 8/1 0 on a numerical pain scale. She states that her pain is constant in timing but varies in i ntensity. Her pain is burning in quality. She states that neck pain is increased with putti ng her arms above her head. She states that her back pain is increased by any type of activ ity such as sweeping or vacuuming. She states that her pain is reduced with pain medication , specifically hydrocodone. She states that she has pain in the back and the legs. She stat es that the pain is equal between the back and the legs. She has pain in both legs. She sta iva the pain is equal between the right leg and the left leg. She states that in both lower extremities, the symptoms travel over the anterior thigh, then over the anterior foreleg, and then into the top of the feet. She indicates that she has intermittent numbness and par esthesia in the lower extremities, primarily affecting her toes and occasionally she will h ave paresthesia in the fingers as well. She denies weakness in any of the 4 extremities. Loretta stack reports that she has had some recent bowel incontinence. She states that this has been as sociated with rectal bleeding. She denies bladder incontinence. She denies urinary retentio n. She has not had any physical therapy. She did have previous epidural steroid injection a t L5-S1 in August of 2010. She states that it was helpful. She has not seen a chiropractor. Loretta stack has seen an regulatory compliance director. ALLERGIES 1. AUGMENTIN. 2. SULFA ANTIBIOTICS. CURRENT MEDICATIONS 1. Amitriptyline 100 mg 2 times daily. She states that she only takes it at bedtime. 2. Cl onazepam 1/2 tablet daily. 3. Prozac 40 mg daily. 4. Lortab 10/500 three times daily. 5. Mevacor 20 mg daily. 6. Omeprazole 20 mg daily. 7. Propranolol 10 mg 2 times daily. 8. Verapamil 240 mg daily. PAST MEDICAL HISTORY: Includes 1. Fibromyalgia. 2. Depression. 3. Osteoporosis. 4. Rectal bleeding. 5. High blood pressure. 6. High cholesterol. 7. Stomach ulcers. 8. Gastric reflux. 9. PSVT. PAST SURGICAL HISTORY 1. She has had a broken leg in 1968. 2. She had a partial hysterectomy in 2004. 3. She had tubal ligation in 1987. 4. She had a tumor removed from her left breast in 1965. FAMILY MEDICAL HISTORY: She indicates that father had history of stroke, alcoholism, diabet es, heart trouble, high blood pressure, arthritis. She indicates that mother had history of mental illness, lymphoma, tuberculosis, high blood pressure, arthritis and blood clots, neck pain and back pain. SOCIAL MEDICAL HISTORY: Ms. Chanel indicates that she cares for her son, who has a brain inj ury. She states that he has schizoaffective disorder. She is . She lives with her cris jarquin and son. She indicates that she smokes 1 pack a day and has been smoking for 42 years . She denies consumption of alcohol. She denies use of illicit drugs. REVIEW OF SYSTEMS Ms. Chanel reports weight loss, dizziness, shortness of breath, skin rashes, poor appetite, nausea, diarrhea, hemorrhoids resulting in rectal bleeding, anxiety and memory loss. She r eports no history of fever, chills, weight gain, hearing loss, ear pain, nosebleeds, tootha sarika, snoring, trouble swallowing, heart palpitations, swollen ankles. She denies blackouts, headaches, urinary difficulty or stomach pain. She denies constipation. All other review o f systems negative. PHYSICAL EXAMINATION VITAL SIGNS: Heart rate 76, respiratory rate 16, blood pressure 132/76, weight 178 pounds, height 5 foot 0 inches. GENERAL: In no acute distress. Alert and oriented to person, place, time and situation. HE ENT: Extraocular muscles intact. Pupils equal, reactive to light and accommodation. Sclerae clear. NECK: Diffuse tenderness to palpation. Spurling's test negative. Axial loading test negati ve. Facet loading test equivocal. HEART: Regular rate and rhythm. No murmurs, no gallops. LUNGS: Clear to auscultation bilaterally. No wheezing, no crackles. ABDOMEN: Nontender, po sitive for bowel sounds, obese. BACK: Symmetric. Diffuse tenderness to palpation. Josue's test negative. EXTREMITIES: Ex am reveals no clubbing, cyanosis or edema. Fibromyalgia tender point examination demonstrat es 18 positive fibromyalgia tender points out of 18. NEUROLOGIC: Exam demonstrates 4+/5 str ength in both lower extremities with ankle dorsiflexion and extensor hallucis longus. There is 5/5 knee flexion, knee extension, and ankle plantar flexion in both lower extremities. Deep tendon reflexes are normal over patellae and Achilles of both lower extremities. There is no clonus to either ankle. Babinski is downgoing bilaterally. Sensation is intact to li ght touch and pinprick in all 4 extremities. Reflexes are 1+ over biceps, triceps and brach ioradialis of both upper extremities. Strength is 5/5 in both upper extremities with biceps , triceps, wrist dorsiflexion, and finger abduction. Coordination is intact in both upper e xtremities with oopqcf-eh-nqtp testing. Coordination is intact in both lower extremities wi th tfua-vs-gcck slide and gait. Romberg test is negative. Muscle tone was normal throughout . DATABASE: Cervical CT 09/09/2012, imaging personally reviewed by me, demonstrates multileve l degenerative disk disease and facet arthritis and there is some neural foraminal narrowin g. Lumbar CT 09/09/2012, imaging personally reviewed by me, demonstrates mild multilevel dege nerative disk disease. There is bilateral L5-S1 facet arthritis. MRI imaging not available. Ms. Chanel indicates that because of previous broken leg, she has plates in the leg, which a re ferromagnetic and she cannot have a MRI. ASSESSMENT 1. CLINICAL PRESENTATION OF BILATERAL L5 RADICULOPATHY, ICD-9 724.4. 2. LUMBAR DEGENERATIVE DISK DISEASE, ICD-9 722.52. 3. FIBROMYALGIA, ICD-9 729.1. 4. TOBACCO DEPENDENCE, ICD-9 305.1. PLAN: Ms. Chanel is quite adamant and clear today that truly the only thing that she is int erested in is receiving an epidural steroid injection. We discussed that in treating her sy mptoms there are a number of things that would be recommended. For example, we discussed felicia t the only thing that would change the structure of her spine and allow her improvement in her symptoms long-term would be physical therapy versus surgery. We discussed that physical therapy is preferred. She is really not interested in physical therapy. She once again foc used that she really only wanted an injection in her back. We discussed with her that that is not the standard of this practitioner to practice [facility] medicine. We discussed that really it is advisable to treat problems from multiple fronts in order to enact long-lastin g change and benefit. She was prescribed physical therapy. Uncertain whether or not she logan l attend. We discussed that physical therapy may help improve the alignment of structures w mylesin her spine, giving her long-lasting benefit. She will have bilateral L5-S1 transforaminal epidural steroid injections which may reduce h er symptoms and allow for confirmed diagnosis and improved participation in therapy. Today we discussed multiple medications that may be used for her pain. We discussed that op iate medications are not optimal for managing neuropathic pain. Especially in individuals w ith fibromyalgia there is a growing tome of literature that suggest avoiding opiate medicat ions in these individuals. With that said, her response to this was "don't you take my hydr ocodone away." We discussed that she may benefit from gabapentin, Cymbalta, Lyrica, etc. Sh sreekanth indicated that she was not interested nor was she willing to take any different or altern ative medications. She is advised that she may benefit from weight loss. We discussed that weight loss can red uce impingement upon neural foramen and reduce pressure on lumbar intervertebral disks. She is also advised that she should quit smoking. Greater than 3 minutes was spent today discu ssing smoking cessation. We discussed smoking and its contribution towards degenerative dis k disease. We discussed that if there is anything that she could do that ultimately would b enefit her spine and overall health, it would be to quit smoking. She is currently in the p recontemplation phase of smoking cessation. We did discuss options for smoking cessation, s uch as simply just quitting, tapering and reducing dose and that there are medications that can be used to help with the assistance of smoking cessation. In summary, she is advised to quit smoking. She was advised to lose weight. She was prescri bed physical therapy and epidural steroid injection. She declined any new medications for neuropathic pain. At this juncture, she will return to the clinic as needed in the future. O nce again, she is quite adamant that she had very little interest in any other treatment m odalities. She indicated that she was simply here today so that she could get a steroid inj ection in her back. We advised her that the effects of steroid are temporary. We discussed that the effects of steroid generally wear off within 3 months. We discussed that the steroids stay in the tiss ue really a maximum of 45 days. We discussed that steroid injection does not result in stru ctural changes and only therapy can allow for structural change. She is aware of this and a ccepted the limitations of the injection. Greater than 45 minutes was spent [id number]-[id number] today with Ms. Chanel, over half of which was spent formulating and discussing her medical treatment plan. Thank you for allowing me to be involved in the care of your patient. If you have any quest ions regarding the care of Ms. Chanel, please do not hesitate to call. 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 [address] | | | | | | [address] [facility] | | | | | | [place] [address] | | | | | | [phone] | | | | | | | | +--------+---------+ + + + + + +--------+ + + | Name | Type | Priori | Associated Diagnoses | Order Schedule | | | | ty | | | + + +--------+ + + | Ambulatory referral | Outpatient | Routin | Lumbar | Ordered: 10/05/2012 | | to Physical Medicine | Referral | e | radiculopathy | | | Rehab | | | | | + + +--------+ + + | Ambulatory referral | Outpatient | Routin | Lumbar | Ordered: 10/05/2012 | | to Physical Therapy | Referral | e | radiculopathy | | | | | | Lumbar degenerative | | | | | | disc disease | | | | | | Fibromyalgia | | + + +--------+ + + documented as of this encounter Visit Diagnoses + + | Diagnosis | + + | Lumbar radiculopathy - Primary Thoracic or lumbosacral neuritis or radiculitis, | | unspecified | + + | Lumbar degenerative disc disease Degeneration of lumbar or lumbosacral intervertebral | | disc | + + | Fibromyalgia Mylagia and myositis, unspecified | + + | Tobacco dependence Tobacco use disorder | + + documented in this encounter
--- OUTSIDE RECORDS SUMMARY | ~2019-08-12 | XMS | Encounter Summary ---
Demographics + + + | Address | [address] | | | [place] [address] | + + + | Home Phone | | + + + | Preferred Language | Unknown | + + + | Marital Status | | + + + | Lutheran Affiliation | 1073 | + + + | Race | Unknown | + + + | Ethnic Group | Unknown | + + + Author + + + | Author | [facility] | | | and [place] | + + + | Organization | [facility] | | | [...] [place] | | | | | [address] | | + + + + + | Jesus Chanel | KARYN | [address] | | | | | [place] [address] | | + + + + + Care Team Providers + +------+ + | Care Primary Teacher Name | Role | Phone | + +------+ + | Geraldo Montano MD | PCP | | + +------+ + Encounter Details +--------+ + + + + | Date | Type | Department | Care Team | Description | +--------+ + + + + | 05/22/ | Imaging | [facility] | Provider, | | | 2019 | Exam | [facility] | MD [address] | | | | | [facility] [address] | [address] | | | | | [address] [place] | [place] [address] | | | | | [place] [address] | | | | | | [phone] | | | +--------+ + + + [...] | | | | | | [address] | | | | | | [place] [address] | | | | | | [phone] | | | | | | | | +--------+---------+ + + + documented as of this encounter Procedures + +--------+ + + + | Procedure Name | Priori | Date/Time | Associated Diagnosis | Comments | | | ty | | | | + +--------+ + + + | XR CHEST 2 VIEWS | Routin | 05/14/2015 | | Results for this | | | e | 12:00 AM | | procedure are in the | | | | PST | | results section. | + +--------+ + + + documented in this encounter Results XR Chest 2 Vws (05/14/2015 12:00 AM PST) + + | Specimen | + + | | + + + + + | Narrative | Performed At | + + + | External films for comparison only | [facility] | | | | | No results will be in the chart. | | + + + + +---------+ + + | Performing | Address | City/State/Zipcode | Phone Number | | Organization | | | | + +---------+ + + | [facility] | | | | + +---------+ + + documented in this encounter Visit Diagnoses Not on filedocumented in this encounter"
--- OUTSIDE RECORDS SUMMARY | ~2019-08-12 | XMS | Clinical Summary ---
Demographics + + + | Address | [address] | | | [place] [address] | + + + | Home Phone | | + + + | Preferred Language | Unknown | + + + | Marital Status | | + + + | Anabaptist Affiliation | [id number] | + + + | Race | Unknown | + + + | Ethnic Group | Unknown | + + + Author + + + | Author | [facility] | | | and Vaughn | + + + | Organization | [facility] | | | [...] [place] | | | | | [address] | | + + + + + | Serjio Chanel | ECON | [address] | | | | | [place] [address] | | + + + + + Care Team Providers + +------+ + | Care Pastoral Assistant Name | Role | Phone | + +------+ + | Vero Montano MD | PCP | | + +------+ + Allergies + + + + + + | Active Allergy | Reactions | Severity | Noted | Comments | | | | | Date | | + + + + + + | Amoxicillin-Pot | Hives | Medium | 08/22/19 | Aka; augmentin | | Clavulanate | | | 11 | | + + + + + + | Meperidine | Other (See Comments) | Medium | 05/07/19 | Psychotic | | | | | 20 | breakdown | + + + + + + | Lovastatin | Other (See Comments) | Low | 02/28/20 | Memory impairment | | | | | 16 | | + + + + + + | Oxycodone | Other (See Comments) | Medium | 05/07/19 | Psychotic | | | | | 20 | breakdown | + + + + + + | Sulfa Antibiotics | Other (See Comments) | Medium | 08/22/19 | Makes very ill | | | | | 11 | | + + + + + + Medications + + + +---------+------+------+-------+ | Medication | Sig | Dispensed | Refills | Star | End | Statu | | | | | | t | Date | s | | | | | | Date | | | + + + +---------+------+------+-------+ | Liniments | Apply topically. | | 0 | | | Activ | | (THERAPEUTIC BLUE | | | | | | e | | ICE EX) | | | | | | | + + + +---------+------+------+-------+ | verapamil (CALAN | Take 180 mg by mouth | | 0 | 02/1 | | Activ | | SR) 180 mg SR tablet | 2 times daily. | | | 3/20 | | e | | | | | | 18 | | | + + + +---------+------+------+-------+ | cyanocobalamin | Take 100 mcg by | | 0 | | | Activ | | (VITAMIN B-12) 100 | mouth Daily. | | | | | e | | MCG tablet | | | | | | | + + + +---------+------+------+-------+ | tocopherol | Take 400 Units by | | 0 | | | Activ | | (VITAMIN E) 100 | mouth Daily. Take 2 | | | | | e | | units capsule | daily | | | | | | + + + +---------+------+------+-------+ | sertraline | Take 50 mg by mouth | | 0 | | | Activ | | (ZOLOFT) 50 mg | Daily. | | | | | e | | tablet | | | | | | | + + + +---------+------+------+-------+ | | Take 25 mg by mouth. | | 0 | 11/1 | | Activ | | hydroCHLOROthiazide | | | | 9/20 | | e | | 25 mg tablet | | | | 19 | | | + + + +---------+------+------+-------+ | Homeopathic | Apply topically. | | 0 | | | Activ | | Products (ARNICARE | Arnica 30x | | | | | e | | EX) | | | | | | | + + + +---------+------+------+-------+ | PANCREATIN PO | Take 1 tablet by | | 0 | | | Activ | | | mouth Daily. | | | | | e | + + + +---------+------+------+-------+ | Digestive Enzymes | Take 1 tablet by | | 0 | | | Activ | | (SUPER ENZYMES PO) | mouth Daily. | | | | | e | + + + +---------+------+------+-------+ | UNABLE TO FIND | Med Name: Heal and | | 0 | | | Activ | | | soothe | | | | | e | + + + +---------+------+------+-------+ | UNABLE TO FIND | Med Name: synbiotic | | 0 | | | Activ | | | 365 | | | | | e | + + + +---------+------+------+-------+ | sodium | Take 177 mLs by | 2 | 0 | 02/0 | | Activ | | sulfate-potassium | mouth (see | Bottle | | 4/20 | | e | | sulfate-magnesium | instruction). Take | | | 20 | | | | sulfate (SUPREP | one kit, first dose | | | | | | | BOWEL PREP KIT) oral | at 4pm, second dose | | | | | | | solution | at 8pm day before | | | | | | | | procedure | | | | | | + + + +---------+------+------+-------+ | ondansetron | As needed for | 2 | 0 | 02/0 | | Activ | | (ZOFRAN) 4 mg tablet | nausea; stop prep; | tablet | | 4/20 | | e | | | take 1 tablet; wait | | | 20 | | | | | 30 min then resume | | | | | | | | prep; repeat 1x prn | | | | | | + + + +---------+------+------+-------+ | gabapentin | 1 tablet once a day | 90 | 0 | 02/2 | | Activ | | (NEURONTIN) 300 mg | for 5 days, then 1 | capsule | | 3/20 | | e | | capsule | tablet twice a day | | | 20 | | | | | for 5 days, then 1 | | | | | | | | tablet 3 times a | | | | | | | | day. The medicine | | | | | | | | may need to be | | | | | | | | titrated up further | | | | | | | | than that depending | | | | | | | | on your symptoms. | | | | | | + + + +---------+------+------+-------+ Active Problems + + + | Problem | Noted Date | + + + | Diarrhea, unspecified type | 06/13/2019 | + + + + + | Overview: Added automatically from request for surgery | | [id number] | + + + + + | Generalized abdominal pain | 06/13/2019 | + + + + + | Overview: Added automatically from request for surgery | | [id number] | + + + + + | Unintentional weight loss | 06/13/2019 | + + + + + | Overview: Added automatically from request for surgery | | [id number] | + + + + + | Allergy to opioid analgesic | 06/13/2019 | + + + + + | Overview: Added automatically from request for surgery | | [id number] | + + + + + | Failed conscious sedation during procedure, subsequent encounter | 06/13/2019 | + + + + + | Overview: Added automatically from request for surgery | | [id number] | + + + + + | PTSD (post-traumatic stress disorder) | 12/07/2018 | + + + + + | Overview: Suspect a significant part of her chronic pain is | | related to history of trauma. of her 2 children and her | | son's mental illness. Last Assessment & Plan: Suspect a | | significant part of her chronic pain is related to history of | | trauma. of her 2 children and her son's mental illness. She | | is in agreement. Could consider counseling. | | | |Could consider counseling. | + + + + + | Kidney lesion | 10/27/2018 | + + + + + | Overview: Last Assessment & Plan: | | Reported kidney lesion | | | | I cannot find record. | | | | Will bring report she has at next visit. | + + + + + | Lumbar radiculopathy | 05/18/2018 | + + + | Chronic bilateral low back pain with bilateral sciatica | 11/24/2017 | + + + + + | Overview: Last Assessment & Plan: | | Will refer to rehab for her chronic neck and back pain. | + + + + + | Spinal stenosis of lumbar region with neurogenic claudication | 11/24/2017 | + + + + + | Overview: Last Assessment & Plan: | | Referred to pain clinic at her request. | | | | Keep appointment with neurosurgery. | + + + + + | Muscle spasms of neck | 04/14/2017 | + + + + + | Overview: Last Assessment & Plan: | | Will make a trial of muscle relaxer at bedtime. | + + + + + | Family history of Parkinson disease | 01/07/2017 | + + + + + | Overview: Overview: Mother and grandfather with | | Parkinson'sLast Assessment & Plan: May have early signs of | | Parkinsons with some mild cog wheeling on exam. But no tremor an | | no difficulty initiating movement. No treatment is recommended. | |May have early signs of Parkinsons with some mild cog wheeling on exam. But no tremor an no difficulty initiating movement. | | | |No treatment is recommended. | + + + + + | Insomnia due to medical condition | 01/07/2017 | + + + + + | Overview: Last Assessment & Plan: | | Will switch from amitriptyline to nortriptyline due to age. | + + + + + | H/O hysterectomy for benign disease | 08/13/2016 | + + + + + | Overview: Overview: | | Due to fibroids. | + + + + + | Perennial allergic rhinitis | 08/13/2016 | + + + + + | Overview: Last Assessment & Plan: Suspect change in voice | | quality is related to allergies. Trial of Flonase. If not | | improved, consider referral to ENT due to change in voice | | quality. | | | |If not improved, consider referral to ENT due to change in voice quality. | + + + + + | Irritable bowel syndrome with diarrhea | 02/28/2016 | + + + + + | Overview: Last Assessment & Plan: | | Continue diphenoxylate. | | | | Too much could cause constipation. | | | | Last Assessment & Plan: | | Fecal testing consistent with inflammatory diarrhea. | | | | Has been referred to GI for evaluation | | | | Last Assessment & Plan: | | Rx for dicyclomine | | | | Keep appointment with GI | + + + + + | Chronic dermatitis of feet | 08/15/2015 | + + + + + | Overview: Last Assessment & Plan: Reviewed no current | | evidence of fungus. Gentle skin care. No soaps or chemical. Wash | | with water. vaselilne or bag balm applied 2 times per day. | | Recheck i 1 months. | + + + + + | Hypercalcemia | 07/30/2015 | + + + + + | Overview: Last Assessment & Plan: | | Normalized ionized calcium normal. | + + + + + | Colon polyp | 07/18/2015 | + + + + + | Overview: Overview: Had multiple polyps an recommended to | | have repeat colonoscopy in 2015. She says she will ever have | | colonoscopy againLast Assessment & Plan: Still declining to | | repeat. | |Still declining to repeat. | + + + + + | Gastropathy | 07/18/2015 | + + + + + | Overview: Overview: | | EGD 06/2012. No erosive gastropathy | | | | Last Assessment & Plan: | | Does not tolerate aspirin. Will resume omeprazole | + + + + + | Neuropathy of both upper extremities | 07/18/2015 | + + + + + | Overview: Last Assessment & Plan: | | Referred to rehab. | + + + + + | Cervical myelopathy | 07/18/2015 | + + + + + | Overview: Last Assessment & Plan: | | Will make a trial of gabapentin for neuropathic pain | + + + + + | PSVT (paroxysmal supraventricular tachycardia) | 07/04/2015 | + + + + + | Overview: Last Assessment & Plan: | | Stable. Continue verapamil. | + + + + + | Tinea pedis of both feet | 07/04/2015 | + + + + + | Overview: Last Assessment & Plan: Not tolerant of topical | | meds prescribed. Not certain regarding fungal nature of rash. I | | recommend she return in future for skin scraping to assure | | correct diagnosis.. | + + + + + | Fibromyalgia | 08/12/2011 | + + + + + | Overview: Last Assessment & Plan: Jan not | | helpful.Discontinued.Rx provided for muscle relaxer for muscle | | spasm and trial of Ambien at bedtime for sleep. | |Discontinued. | | | |Rx provided for muscle relaxer for muscle spasm and trial of Ambien at bedtime for sleep. | + + + + + | Esophageal reflux | 08/12/2011 | + + + + + | Overview: Last Assessment & Plan: | | Stop omeprazole. | | | | Start ranitidine | | | | Last Assessment & Plan: | | Will make a trial of ranitidine. | + + + + + | Essential hypertension | 05/04/2011 | + + + + + | Overview: Overview: | | Dx Name changed by system update on 01/29/2017 | | | | Last Assessment & Plan: | | Controlled with hydrochlorothiazide. | | | | Dx Name changed by system update on 01/29/2017 | | | | Last Assessment & Plan: | | Controlled. | | | | Lab today | + + + + + | Depressive disorder, not elsewhere classified | 04/21/2010 | + + + | Mixed hyperlipidemia | 04/21/2010 | + + + + + | Overview: Overview: | | Triglycerides over 600 | | | | Last Assessment & Plan: | | 14% 10 year risk. | | | | I recommended statin but she is not interested. | | | | Triglycerides over 600 | | | | Last Assessment & Plan: | | Intolerant of statins. | | | | I recommend taking fish oil once daily | + + + + + | Moderate major depression | 04/21/2010 | + + + + + | Overview: Last Assessment & Plan: | | Fluoxetine causing insomnia. | | | | Will switch to sertraline. | + + + + + | Tobacco use disorder | 03/07/2004 | + + + + + | Overview: Last Assessment & Plan: | | Encouraged to quit smoking. | | | | Not interested. | | | | Last Assessment & Plan: | | Would need to quit smoking if wants to proceed with surgery. | + + +--------+ + | Anemia | 10/12/2003 | +--------+ + + + | Overview: Overview: | | Dx Name changed by system update on 01/29/2017 | | | | Last Assessment & Plan: | | History of. Will get cbc | | | | Dx Name changed by system update on 01/29/2017 | | | | Last Assessment & Plan: | | History anemia. | | | | Will check cbc | + + + + + | Osteoarthrosis | 10/12/2003 | + + + + + | Overview: Overview: | | IMO Problem List Replacement - 2016_Regulatory_1 | | | | Last Assessment & Plan: | | Trial of voltaren gel. | + + + +---+ | GI BLEEDING | | + +---+ | FM HX MALIGNANT NEOPLASM GASTROINTESTINAL TRACT | | + +---+ | ABDOMINAL PAIN | | + +---+ | Lumbar spondylosis | | + +---+ + + | Overview: MARK [id number] Decision | + + + +---+ | NICOTINE ADDICTION | | + +---+ | Myalgia and myositis | | + +---+ + + | Overview: MARK [id number] DecisionLast Assessment & Plan: | | Chronic pain well controlled with amitriptyline and | | antidepressant. Will not resume opiates. Fells better since | | getting off. | + + + +---+ | DEGENERATIVE DISC DISEASE, LUMBAR SPINE | | + +---+ | DEPRESSION/ANXIETY | | + +---+ | HERNIATED LUMBOSACRAL DISC | | + +---+ | LUMBOSACRAL RADICULOPATHY | | + +---+ Encounters +--------+ + + + + | Date | Type | Specialty | Care Team | Description | +--------+ + + + + | 07/19/ | Telephone | Neurosurgery | João Hill, | Imaging (Orders) | | 2020 | | | [employer] | | +--------+ + + + + | 07/02/ | Emergency | Emergency Medicine | Javy Bynum | Acute right-sided | | 2020 | | | MD Serjio | low back pain with | | | | | | right-sided sciatica | | | | | | (Primary Dx) | +--------+ + + + + | 06/25/ | Telephone | Neurosurgery | João Hill, | Imaging | 2019 | | | [employer] | | +--------+ + + + + | 06/20/ | Hospital | | Josue Vazquez | Diarrhea, | 2019 | Encounter | | MD Winston | unspecified type; | | | | | | Generalized | | | | | | abdominal pain; | | | | | | Unintentional weight | | | | | | loss; Allergy to | | | | | | opioid analgesic; | | | | | | Failed conscious | | | | | | sedation during | | | | | | procedure, | | | | | | subsequent encounter | +--------+ + + + + | 06/19/ | Telephone | Gastroenterology | Josue Vazquez | Procedure (cancel | 2019 | | | MD [place] | egd/colon) | +--------+ + + + + | 06/14/ | Telephone | Neurosurgery | João Hill, | Other | | 2019 | | | [employer] | | +--------+ + + + + | 06/11/ | Emergency | Emergency Medicine | Rex Choi, | Acute exacerbation | | 2019 | | | MD | of chronic low back | | | | | | pain (Primary Dx); | | | | | | Paresthesias | +--------+ + + + + | 05/25/ | Hospital | Radiology | João Hill, | | | 2019 | Encounter | | [employer] | | +--------+ + + + + | 05/23/ | Office | Neurosurgery | João Hill, | DDD (degenerative | 2019 | Visit | | [employer] | disc disease), | | | | | | lumbar (Primary Dx); | | | | | | Lumbar facet | | | | | | arthropathy; Chronic | | | | | | bilateral low back | | | | | | pain with bilateral | | | | | | sciatica; | | | | | | Cervicalgia; DDD | | | | | | (degenerative disc | | | | | | disease), cervical; | | | | | | Foraminal stenosis | | | | | | of cervical region | +--------+ + + + + | 05/23/ | Orders Only | Gastroenterology | Josue Vazquez | Diarrhea, | | 2019 | | | MD [place] | unspecified type | | | | | | (Primary Dx); H/O | | | | | | failed conscious | | | | | | sedation; | | | | | | Generalized | | | | | | abdominal pain; | | | | | | Unintentional weight | | | | | | loss; Allergy to | | | | | | opioid analgesic; | | | | | | Failed conscious | | | | | | sedation during | | | | | | procedure, | | | | | | subsequent encounter | +--------+ + + + + | 05/22/ | Office | Gastroenterology | Josue Vazquez | H/O failed conscious | 2019 | Visit | | MD [place] | sedation (Primary | | | | | | Dx); Diarrhea, | | | | | | unspecified type; | | | | | | Generalized | | | | | | abdominal pain; | | | | | | Unintentional weight | | | | | | loss | +--------+ + + + + from Last 3 Months Immunizations + + + + | Name | Administration Dates | Next Due | + + + + | INFLUENZA 66 Y OR >, | 01/07/2017 | | | TRIVALENT HIGH-DOSE | | | + + + + | PNEUMOCOCCAL | 01/07/2017 | | | CONJUGATE 13-VALENT | | | | (PCV13) | | | + + + + | TDAP, (ADOL/ADULT) | 07/23/2015 | | + + + + Family History + + +------+ + | Medical History | Relation | Name | Comments | + + +------+ + | Alcohol abuse | Father | | | + + +------+ + | Arthritis | Father | | | + + +------+ + | COPD | Father | | | + + +------+ + | Diabetes | Father | | | + + +------+ + | Emphysema | Father | | | + + +------+ + | Heart attack | Father | | | + + +------+ + | Heart disease | Father | | | + + +------+ + | High blood pressure | Father | | | + + +------+ + | Stroke | Father | | | + + +------+ + | Arthritis | Mother | | | + + +------+ + | Bleeding problems | Mother | | Blood Clots | + + +------+ + | Cancer | Mother | | | + + +------+ + | Depression | Mother | | | + + +------+ + | High blood pressure | Mother | | | + + +------+ + | Lymphoma | Mother | | | + + +------+ + | Mental illness | Mother | | depression | + + +------+ + | Parkinsonism | Mother | | | + + +------+ + | Tuberculosis | Mother | | | + + +------+ + | Gout | Other | | | + + +------+ + | Parkinsonism | Other | | Grandfather | + + +------+ + + +------+ + + | Relation | Name | Status | Comments | + +------+ + + | Father | | | lots of health problems | | | | (Age | | | | | 79) | | + +------+ + + | Mother | | | | + +------+ + + | Other | | | | + +------+ + + Social History + + + [...] | | | + +---+---+---+ + + | Tobacco Cessation: Ready to Quit: No; Counseling Given: Yes | + + + + +---------+ + | Alcohol Use [...] recent travel history available. | + + Last Filed Vital Signs + + + + + | Vital Sign | Reading | Time Taken | Comments | + + + + + | Blood Pressure | 124/74 | 07/03/2019 10:03 PM | | | | | PDT | | + + + + + | Pulse | 85 | 07/03/2019 10:03 PM | | | | | PDT | | + + + + + | Temperature | 36.6 C (97.8 F) | 07/03/2019 8:49 PM | | | | | PDT | | + + + + + | Respiratory Rate | 20 | 07/03/2019 10:03 PM | | | | | PDT | | + + + + + | Oxygen Saturation | 98% | 07/03/2019 10:03 PM | | | | | PDT | | + + + + + | Inhaled Oxygen | - | - | | | Concentration | | | | + + + + + | Weight | 64.9 kg (143 lb) | 05/23/2019 10:31 AM | | | | | PST | | + + + + + | Height | 154.9 cm (5' 1") | 05/23/2019 10:31 AM | | | | | PST | | + + + + + | Body Mass Index | 27.02 | 05/23/2019 10:31 AM | | | | | PST | | + + + + + Plan of Treatment +--------+---------+ + + + | Date | Type | Specialty | Care Team | Description | +--------+---------+ + + + | 08/13/ | Office | Neurosurgery | João Hill, | | | 2019 | Visit | | [employer] [address] | | | | | | [place] [address] | | | | | | [phone] | | | | | | | | +--------+---------+ + + + + + + + + | Health Maintenance | Due Date | Last Done | Comments | + + + + + | Hepatitis C | | | | | Screening | 2 | | | + + + + + | Vaccine: Zoster (1 | | | | | of 2) | 2 | | | + + + + + | Lung Cancer | | | | | Screening | 7 | | | + + + + + | Adult Annual | | | | | Wellness Visit | 8 | | | + + + + + | Vaccine: | | 01/07/2017 | | | Pneumococcal 65+ (2 | 8 | | | | of 2 - PPSV23) | | | | + + + + + | Breast Cancer | | 07/15/2017, 07/30/2015, | | | Screening | 0 | 09/29/2013, Additional history | | | | | exists | | + + + + + | Vaccine: Influenza | | 01/07/2017 | | | (Season Ended) | 0 | | | + + + + + | Colorectal Cancer | | 05/04/2012 | | | Screening | 3 | | | | (Colonoscopy) | | | | + + + + + | Vaccine: | | 07/23/2015 | | | Dtap/Tdap/Td (2 - | 6 | | | | Td) | | | | + + + + + Procedures + +--------+ + + + | Procedure Name | Priori | Date/Time | Associated Diagnosis | Comments | | | ty | | | | + +--------+ + + + | ED INFORMATION | Routin | 07/03/2019 | | | | EXCHANGE | e | 8:40 PM | | | | | | PDT | | | + +--------+ + + + +---+--------+ | | | | | Proced | | | ure | | | Note - | | | Alec, | | | Lab In | | | | | | Hlseve | | | n - | | | | | | 2019 | | | 8:41 | | | PM PDT | | | | | | Format | | | ting | | | of | | | this | | | note | | | might | | | be | | | differ | | | ent | | | from | | | the | | | origin | | | al.COL | | | LECTIV | | | E?NOTI | | | FICATI | | | ON?/ | | | | | | 0 | | | 20:39? | | | CHANEL, | | | | | | MARICARMEN | | | H | | | S?MRN: | | | | | | [id number] | | | [id number] | | | riteri | | | a Met | | | 4 | | | visits | | | in | | | 60Secu | | | rity | | | and | | | Safety | | | No | | | recent | | | | | | Securi | | | ty | | | Events | | | | | | curren | | | tly on | | | | | | fileED | | | Care | | | Guidel | | | inesTh | | | ere | | | are | | | curren | | | tly no | | | ED | | | Care | | | Guidel | | | austyn | | | for | | | this | | | patien | | | t. | | | Please | | | check | | | your | | | facili | | | ty's | | | medica | | | l | | | record | | | s | | | system | | | .Presc | | | riptio | | | n Drug | | | | | | Report | | | (12 | | | Mo.)PD | | | MP | | | query | | | found | | | no | | | report | | | .E.D. | | | Visit | | | Count | | | (12 | | | mo.)Fa | | | cility | | | | | | Visits | | | Low | | | Acuity | | | | | | Provid | | | ence | | | [facility] | | | [place] [facility] | | | l | | | Center | | | 4 0 | | | [facility] [place] | | | y | | | Hospit | | | al 1 0 | | | Total | | | 5 0 | | | Note: | | | Visits | | | | | | indica | | | te | | | total | | | known | | | visits | | | . | | | Medica | | | id Low | | | | | | Acuity | | | Dx | | | are | | | the | | | number | | | of | | | primar | | | y | | | diagno | | | ses on | | | the | | | Medica | | | id's | | | Low | | | Acuity | | | dx | | | list. | | | | | | Recent | | | | | | Emerge | | | ncy | | | Depart | | | ment | | | Visit | | | [facility] | | | yDate | | | Facili | | | ty | | | City | | | State | | | Type | | | Diagno | | | ses or | | | Chief | | | | | | Compla | | | int | | | Mar | | | 16, | | | 2020 | | | Provid | | | ence | | | [facility] | | [place] | | | [place] | | | Emerge | | | ncy | | | back | | | pain | | | Feb | | | 23, | | | 2020 | | | Provid | | | ence | | | [facility] | [facility] | [place] | | | [place] | | | Emerge | | | ncy | | | | | | PN/Num | | | bness | | | Legs/A | | | mono | | | Back | | | Pain | | | | | | Numbne | | | ss | | | Other | | | chroni | | | c pain | | | | | | Low | | | back | | | pain | | | | | | Parest | | | hesia | | | of | | | skin | | | Feb | | | 22, | | | 2020 | | | [facility] [place] | | | [facility] | | | [place] | | | [place] | | | Emerge | | | ncy | | | Low | | | back | | | pain | | | | | | Other | | | chroni | | | c pain | | | | | | Nicoti | | | ne | | | depend | | | ence, | | | unspec | | | ified, | | | | | | uncomp | | | licate | | | d | | | Allerg | | | y | | | status | | | to | | | oth | | | drug/m | | | eds/bi | | | ol | | | subst | | | status | | | | | | Other | | | long | | | term | | | (curre | | | nt) | | | drug | | | therap | | | y | | | Allerg | | | y | | | status | | | to | | | narcot | | | ic | | | agent | | | status | | | Sameer | | | 19, | | | 2020 | | | Provid | | | ence | | | [facility] | | [facility] | [place] | | | [place] | | | Emerge | | | ncy | | | | | | severe | | | nerve | | | pain | | | | | | Pain | | | | | | Dorsal | | | césar, | | | unspec | | | ified | | | Sameer | | | 2, | | | 2020 | | | Provid | | | ence | | | [facility] | | | [facility] [facility] | | [place] | | | [place] | | | Emerge | | | ncy | | | back | | | pain | | | | | | Spinal | | | | | | stenos | | | is, | | | lumbar | | | | | | region | | | | | | withou | | | t | | | neurog | | | enic | | | sierra | | | | | | Lumbag | | | o with | | | | | | sciati | | | ca, | | | unspec | | | ified | | | side | | | Recent | | | | | | Inpati | | | ent | | | Visit | | | [facility] | | | yNo | | | record | | | ed | | | inpati | | | ent | | | visits | | | . Care | | | | | | TeamPr | | | ovider | | | | | | Specia | | | lty | | | Phone | | | Fax | | | Servic | | | e | | | Dates | | | MONTANO, | | | VERO | | | T., MD | | | | | | Family | | | | | | Medici | | | ne | | | [phone] | | | [phone] | | | 50 | | | [phone] | | | [phone] | | | 47 | | | Curren | | | t | | | BUTTS, | | | | | | SERJIO | | | | | | EDWARD | | | | | | JAZMIN | | | (MD) | | | EDWARD | | | | | | JAZMIN | | | , MD | | | Emerge | | | ncy | | | Medici | | | ne | | | Feb | | | 24, | | | 2020 - | | | | | | Curren | | | t | | | VERO T | | | MONTANO | | | | | | Primar | | | y Care | | | (509) | | | | | | [phone] | | | 50 | | | (509) | | | [phone] | | | 47 | | | Curren | | | t | | | Collec | | | tive | | | Portal | | | This | | | patien | | | t has | | | regist | | | ered | | | at the | | | | | | Prov[facility] | | [facility] en[facility] | | | [facility] | | | | | | Emerge | | | ncy | | | Depart | | | ment | | | For | | | more | | | inform | | | ation | | | visit: | | | | | | https: | | | //prov | | | .colle | | | ctivem | | | edical | | | [email or web address] | | | otify/ | | | [id number] | | | [phone] | | | [phone] | | | [phone] | | | [id number] | | | [id number] | | | | | | PLEASE | | | NOTE: | | | 1. | | | Any | | | care | | | recomm | | | endati | | | ons | | | and | | | other | | | clinic | | | al | | | inform | | | ation | | | are | | | provid | | | ed as | | | guidel | | | austyn | | | or for | | | | | | histor | | | ical | | | purpos | | | es | | | only, | | | and | | | provid | | | ers | | | should | | | | | | exerci | | | se | | | their | | | own | | | clinic | | | al | | | judgme | | | nt | | | when | | | provid | | | ing | | | care. | | | 2. | | | You | | | may | | | only | | | use | | | this | | | inform | | | ation | | | for | | | purpos | | | es of | | | treatm | | | ent, | | | paymen | | | t or | | | health | | | care | | | operat | | | ions | | | activi | | | ties, | | | and | | | subjec | | | t to | | | the | | | limita | | | tions | | | of | | | applic | | | able | | | Collec | | | tive | | | Polici | | | es. | | | 3. | | | You | | | should | | | | | | consul | | | t | | | direct | | | ly | | | with | | | the | | | organi | | | zation | | | that | | | provid | | | ed a | | | care | | | guidel | | | ine or | | | other | | | | | | clinic | | | al | | | histor | | | y with | | | any | | | questi | | | ons | | | about | | | additi | | | onal | | | inform | | | ation | | | or | | | accura | | | cy or | | | comple | | | teness | | | of | | | inform | | | ation | | | provid | | | ed.? | | | 2019 | | | Collec | | | tive | | | Medica | | | l | | | Techno | | | logies | | | , Inc. | | | - | | | [email or web address] | | | llecti | | | vemedi | | | [email or web address] | | | m | +---+--------+ + +--------+ +---+ + | POC GLUCOSE | Routin | 06/11/2019 | | Results for this | | | e | 2:31 AM | | procedure are in the | | | | PST | | results section. | + +--------+ +---+ + | ED INFORMATION | Routin | 06/11/2019 | | | | EXCHANGE | e | 1:38 AM | | | | | | PST | | | + +--------+ +---+ + +---+--------+ | | | | | Proced | | | ure | | | Note - | | | Alec, | | | Lab In | | | | | | Hlseve | | | n - | | | 06/11/ | | | 2019 | | | 1:39 | | | AM PST | | | | | | Format | | | ting | | | of | | | this | | | note | | | might | | | be | | | differ | | | ent | | | from | | | the | | | origin | | | al.COL | | | LECTIV | | | E?NOTI | | | FICATI | | | ON?/ | | | | | | 0 | | | 01:37? | | | CHANEL, | | | | | | MARICARMEN | | | H | | | S?MRN: | | | | | | [id number] | | | [id number] | | | riteri | | | a Met | | | 4 | | | visits | | | in | | | 60Secu | | | rity | | | and | | | Safety | | | No | | | recent | | | | | | Securi | | | ty | | | Events | | | | | | curren | | | tly on | | | | | | fileED | | | Care | | | Guidel | | | inesTh | | | ere | | | are | | | curren | | | tly no | | | ED | | | Care | | | Guidel | | | austyn | | | for | | | this | | | patien | | | t. | | | Please | | | check | | | your | | | facili | | | ty's | | | medica | | | l | | | record | | | s | | | system | | | .Presc | | | riptio | | | n Drug | | | | | | Report | | | (12 | | | Mo.)PD | | | MP | | | query | | | found | | | no | | | report | | | .E.D. | | | Visit | | | Count | | | (12 | | | mo.)Fa | | | cility | | | | | | Visits | | | Low | | | Acuity | | | | | | Provid | | | ence | | | [facility] | | | [facility] | [facility] | | | [facility] | | | 3 0 | | | [facility] | [place] | | | y | | | Hospit | | | al 1 0 | | | Total | | | 4 0 | | | Note: | | | Visits | | | | | | indica | | | te | | | total | | | known | | | visits | | | . | | | Medica | | | id Low | | | | | | Acuity | | | Dx | | | are | | | the | | | number | | | of | | | primar | | | y | | | diagno | | | ses on | | | the | | | Medica | | | id's | | | Low | | | Acuity | | | dx | | | list. | | | | | | Recent | | | | | | Emerge | | | ncy | | | Depart | | | ment | | | Visit | | | [facility] | | | yDate | | | Facili | | | ty | | | City | | | State | | | Type | | | Diagno | | | ses or | | | Chief | | | | | | Compla | | | int | | | Feb | | | 23, | | | 2020 | | | Provid | | | ence | | | [facility] | [facility] | | [place] | | | [place] | | | Emerge | | | ncy | | | | | | PN/Num | | | bness | | | Legs/A | | | mono | | | Feb | | | 22, | | | 2020 | | | [facility] | [place] | | | [facility] | | | [place] | | | [place] | | | Emerge | | | ncy | | | Chief | | | Compla | | | int: | | | BACK | | | PAIN | | | Sameer | | | 19, | | | 2020 | | | Provid | | | ence | | | [facility] | | [facility] | | [place] | | | [place] | | | Emerge | | | ncy | | | | | | severe | | | nerve | | | pain | | | | | | Pain | | | | | | Dorsal | | | césar, | | | unspec | | | ified | | | Sameer | | | 2, | | | 2020 | | | Provid | | | ence | | | [facility] | | [facility] | | [place] | | | [place] | | | Emerge | | | ncy | | | back | | | pain | | | | | | Spinal | | | | | | stenos | | | is, | | | lumbar | | | | | | region | | | | | | withou | | | t | | | neurog | | | enic | | | sierra | | | | | | Lumbag | | | o with | | | | | | sciati | | | ca, | | | unspec | | | ified | | | side | | | Recent | | | | | | Inpati | | | ent | | | Visit | | | [facility] | | | yNo | | | record | | | ed | | | inpati | | | ent | | | visits | | | . Care | | | | | | TeamPr | | | ovider | | | | | | Specia | | | lty | | | Phone | | | Fax | | | Servic | | | e | | | Dates | | | MONTANO, | | | VERO | | | T., MD | | | | | | Family | | | | | | Medici | | | ne | | | (509) | | | 525-66 | | | 50 | | | (509) | | | 525-02 | | | 47 | | | Curren | | | t | | | VERO T | | | MONTANO | | | | | | Primar | | | y Care | | | (509) | | | | | | 525-66 | | | 50 | | | (509) | | | 525-02 | | | 47 | | | Curren | | | t | | | Collec | | | tive | | | Portal | | | This | | | patien | | | t has | | | regist | | | ered | | | at the | | | | | | Provid | | | ence | | | [facility] | | [facility] | | | l | | | Center | | | | | | Emerge | | | ncy | | | Depart | | | ment | | | For | | | more | | | inform | | | ation | | | visit: | | | | | | https: | | | //prov | | | .colle | | | ctivem | | | edical | | | .com/n | | | otify/ | | | [id number] | | | [phone] | | | [phone] | | | [phone] | | | [id number] | | | [phone] | | | | | | PLEASE | | | NOTE: | | | 1. | | | Any | | | care | | | recomm | | | endati | | | ons | | | and | | | other | | | clinic | | | al | | | inform | | | ation | | | are | | | provid | | | ed as | | | guidel | | | austyn | | | or for | | | | | | histor | | | ical | | | purpos | | | es | | | only, | | | and | | | provid | | | ers | | | should | | | | | | exerci | | | se | | | their | | | own | | | clinic | | | al | | | judgme | | | nt | | | when | | | provid | | | ing | | | care. | | | 2. | | | You | | | may | | | only | | | use | | | this | | | inform | | | ation | | | for | | | purpos | | | es of | | | treatm | | | ent, | | | paymen | | | t or | | | health | | | care | | | operat | | | ions | | | activi | | | ties, | | | and | | | subjec | | | t to | | | the | | | limita | | | tions | | | of | | | applic | | | able | | | Collec | | | tive | | | Polici | | | es. | | | 3. | | | You | | | should | | | | | | consul | | | t | | | direct | | | ly | | | with | | | the | | | organi | | | zation | | | that | | | provid | | | ed a | | | care | | | guidel | | | ine or | | | other | | | | | | clinic | | | al | | | histor | | | y with | | | any | | | questi | | | ons | | | about | | | additi | | | onal | | | inform | | | ation | | | or | | | accura | | | cy or | | | comple | | | teness | | | of | | | inform | | | ation | | | provid | | | ed.? | | | 2020 | | | Colle[facility] | | | tive | | | Medica | | | l | | | Techno | | | logies | | | , Inc. | | | - | | | [email or web address] | | | llecti | | | vemedi | | | [email or web address] | | | m | +---+--------+ + +--------+ + + + | XR LUMBAR SPINE 2 OR | Routin | 05/25/2019 | DDD (degenerative | Results for this | | 3 VW | e | 12:23 PM | disc disease), | procedure are in the | | | | PST | lumbar Lumbar facet | results section. | | | | | arthropathy | | | | | | Chronic bilateral | | | | | | low back pain with | | | | | | bilateral sciatica | | + +--------+ + + + | XR CERVICAL SPINE 2 | Routin | 05/25/2019 | Cervicalgia DDD | Results for this | | OR 3 VIEWS | e | 12:23 PM | (degenerative disc | procedure are in the | | | | PST | disease), cervical | results section. | | | | | Foraminal stenosis | | | | | | of cervical region | | + +--------+ + + + from Last 3 Months Results POC Glucose (06/11/2019 2:31 AM PST) + +---------+ + + + | Component | Value | Ref Range | Performed | Pathologist | | | | | At | Signature | + +---------+ + + + | Glucose, | 131 (H) | 70 - 109 mg/dL | [facility] | | | [facility] | | | [facility] | [facility] | | | | | [facility] - | | | | | | LABORATORY | | + +---------+ + + + + + | Specimen | + + | Blood | + + + + + + + | Performing | Address | City/State/Zipcode | Phone Number | | Organization | | | | + + + + + | [facility] | [address] | [place] | [phone] | | [facility] | | [address] | | | - LABORATORY | | | | + + + + + XR Lumbar Spine 2 or 3 Vw (05/25/2019 12:23 PM PST) + + | Specimen | + + | | + + + + + | Impressions | Performed At | + + + | 1. No significant motion between flexion and extension. 2. | [facility] | | Degenerative disc disease of the lumbar spine is similar to prior | | | study. Signed by: Jena Cooper, Roberto Mcdonnell Date/Time: | | | 05/25/2019 1:24 PM | | + + + + + + | Narrative | Performed At | + + + | LUMBAR SPINE TWO OR THREE VIEWS CLINICAL INFORMATION: Low | [facility] | | back pain. COMPARISON: MRI LUMBAR SPINE W WO CONTRAST | | | (03/07/2018); XR LUMBAR SPINE 2 OR 3 VW (02/11/2018); TFESI LUMBAR | | | SPINE SINGLE LVL (11/15/2012); FINDINGS: Alignment: There are 5 | | | [id number] lumbar vertebral type bodies. Vertebrae: Normal. | | | No fractures or evidence of acute vertebral deformity. Lumbar | | | Disc Levels: With flexion, there is 3 mm retrolisthesis of L2 on L3 | | | and L3 on L4. With flexion, there is 3 mm anterolisthesis of L5 on | | | S1. With extension, there is 3 mm retrolisthesis of L2 on L3, L3 on | | | L4 and 4 mm anterolisthesis of L5 on S1. There is moderate disc | | | space narrowing at L3-4, L4-5 and L5-S1. Facets and Posterior | | | Spinal Elements: There is moderate facet arthropathy. | | + + + + + | Procedure Note | + + | Alec, Rad Results In - 05/25/2019 1:27 PM PST | | LUMBAR SPINE TWO OR THREE VIEWS | | | | CLINICAL INFORMATION: | | Low back pain. | | | | COMPARISON: | | MRI LUMBAR SPINE W WO CONTRAST (03/07/2018); XR LUMBAR SPINE 2 OR 3 VW | | (02/11/2018); TFESI LUMBAR SPINE SINGLE LVL (11/15/2012); | | | | FINDINGS: | | Alignment: There are 5 tsq-imc-[id number] lumbar vertebral type bodies. | | | | Vertebrae: Normal. No fractures or evidence of acute vertebral | | deformity. | | | | Lumbar Disc Levels: With flexion, there is 3 mm retrolisthesis of L2 on | | L3 and L3 on L4. With flexion, there is 3 mm anterolisthesis of L5 on | | S1. With extension, there is 3 mm retrolisthesis of L2 on L3, L3 on L4 | | and 4 mm anterolisthesis of L5 on S1. There is moderate disc space | | narrowing at L3-4, L4-5 and L5-S1. | | | | Facets and Posterior Spinal Elements: There is moderate facet | | arthropathy. | | | | IMPRESSION: | | 1. No significant motion between flexion and extension. | | 2. Degenerative disc disease of the lumbar spine is similar to prior | | study. | | | | | | | | | | Signed by: Jena Cooper, Roberto | | Sign Date/Time: 05/25/2019 1:24 PM | + + + +---------+ + + | Performing | Address | City/State/Zipcode | Phone Number | | Organization | | | | + +---------+ + + | [facility] | | | | + +---------+ + + XR Cervical Spine 2 or 3 Views (05/25/2019 12:23 PM PST) + + | Specimen | + + | | + + + + + | Impressions | Performed At | + + + | 1. No acute fracture of the cervical spine. 2. Slight motion of C3 | [facility] | | on C4 and C4 on C5 between flexion and extension. Signed by: | | | Jena Cooper, Roberto Sign Date/Time: 05/25/2019 1:21 PM | | + + + + + + | Narrative | Performed At | + + + | CERVICAL SPINE TWO OR THREE VIEWS CLINICAL INFORMATION: Neck | [facility] | | pain chronic. COMPARISON: MRI CERVICAL SPINE W WO CONTRAST | | | (03/07/2018); XR CERVICAL SPINE 2 OR 3 VIEWS (02/11/2018); CERVICAL | | | W/O CONTRAST (09/09/2012); FINDINGS: Alignment: The craniocervical | | | junction is maintained. With flexion, there is 2 mm | | | anterolisthesis of C2 on C3, 2 mm anterolisthesis of C3 on C4 and 1 | | | mm anterolisthesis of C4 on C5. There is 3 mm anterolisthesis of C7 | | | on T1 with flexion as well. With extension, there is 2 mm | | | anterolisthesis of C2 on C3. There is 3 mm anterolisthesis of C7 on | | | T1 with extension. Vertebrae: Normal. No fractures or vertebral | | | deformity. Odontoid process is normal. Cervical Disc Levels: | | | Moderate degenerative disc disease of the cervical spine is noted | | | with prominent anterior osteophyte spurring. Moderate disc space | | | narrowing is seen at C4-5, C5-6 and C6-7. Facets and Posterior | | | Spinal Elements: Moderate facet arthropathy is noted throughout the | | | cervical spine. Prevertebral Soft Tissue Contours: Normal. | | + + + + + | Procedure Note | + + | Alec, Rad Results In - 05/25/2019 1:24 PM PST | | CERVICAL SPINE TWO OR THREE VIEWS | | | | CLINICAL INFORMATION: | | Neck pain chronic. | | | | COMPARISON: | | MRI CERVICAL SPINE W WO CONTRAST (03/07/2018); XR CERVICAL SPINE 2 OR 3 | | VIEWS (02/11/2018); CERVICAL W/O CONTRAST (09/09/2012); | | | | FINDINGS: | | Alignment: The craniocervical junction is maintained. With flexion, | | there is 2 mm anterolisthesis of C2 on C3, 2 mm anterolisthesis of C3 | | on C4 and 1 mm anterolisthesis of C4 on C5. There is 3 mm | | anterolisthesis of C7 on T1 with flexion as well. With extension, | | there is 2 mm anterolisthesis of C2 on C3. There is 3 mm | | anterolisthesis of C7 on T1 with extension. | | | | Vertebrae: Normal. No fractures or vertebral deformity. Odontoid | | process is normal. | | | | Cervical Disc Levels: Moderate degenerative disc disease of the | | cervical spine is noted with prominent anterior osteophyte spurring. | | Moderate disc space narrowing is seen at C4-5, C5-6 and C6-7. | | | | Facets and Posterior Spinal Elements: Moderate facet arthropathy is | | noted throughout the cervical spine. | | | | Prevertebral Soft Tissue Contours: Normal. | | | | IMPRESSION: | | 1. No acute fracture of the cervical spine. | | 2. Slight motion of C3 on C4 and C4 on C5 between flexion and extension. | | | | | | | | Signed by: Jena Cooper, Roberto | | Sign Date/Time: 05/25/2019 1:21 PM | + + + +---------+ + + | Performing | Address | City/State/Zipcode | Phone Number | | Organization | | | | + +---------+ + + | [facility] | | | | + +---------+ + + from Last 3 Months Insurance + +--------+ +--------+ +---------+--------+ | Payer | Benefi | Subscriber | Effect | Phone | Address | Type | | | t Plan | ID | vikas | | | | | | / | | Dates | | | | | | Group | | | | | | + +--------+ +--------+ +---------+--------+ | MEDICARE | MEDICA | [id number] | 11/18/19 | [phone] | | Medica | | | RE | | 17-Pre | 5 | | re | | | PART A | | sent | | | | | | AND B | | | | | | + +--------+ +--------+ +---------+--------+ | BCBS | BCBS | [id number] | 09/18/19 | | | PPO | | | OOS | 2 | 18-Pre | | | | | | PPO | | sent | | | | + +--------+ +--------+ +---------+--------+ | MEDICARE | MEDICA | [id number] | 11/18/19 | [phone] | | Medica | | | RE | | 17-Pre | 5 | | re | | | PART A | | sent | | | | | | AND B | | | | | | + +--------+ +--------+ +---------+--------+ | BCBS | BCBS | [id number] | 09/18/19 | | | PPO | | | OOS | 2 | 19-Pre | | | | | | PPO | | sent | | | | + +--------+ +--------+ +---------+--------+ + +--------+ +--------+ + + | Guarantor Name | Accoun | Relation to | Date | Phone | Billing Address | | | t Type | Patient | of | | | | | | | | | | + +--------+ +--------+ + + | Yamileth Chanel | Person | Self [birth year] | [address] | | | al/Fam | | 1951 | [phone] | [place] [address] | | | iglesia | | | 0 (Home) | | | | | | | [phone] | | | | | | | 2 (Work) | | + +--------+ +--------+ + + | Yamileth Chanel | Person | Self | [birth year] | [address] | | | al/Fam | | 1951 | [phone] | [place] [address] | | | iglesia | | | 0 (Home) | | + +--------+ +--------+ + + Advance Directives + + + + + | Type | Date Recorded | Patient | Explanation | | | | 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
--- OUTSIDE RECORDS SUMMARY | ~2019-08-12 | XMS | Encounter Summary ---
Demographics + + + | Address | [address] | | | [place] [address] | + + + | Home Phone | | + + + | Preferred Language | Unknown | + + + | Marital Status | | + + + | Holiness Affiliation | 1073 | + + + | Race | Unknown | + + + | Ethnic Group | Unknown | + + + Author + + + | Author | [facility] | | | and [place] | + + + | Organization | [facility] | | | and [...] [place] | | | | | [address] | | + + + + + | Jesus Chanel | KARYN | [address] | | | | | [place] [address] | | + + + + + Care Team Providers + +------+ + | Care Instructor Warper Name | Role | Phone | + +------+ + | Gissel Zhong MD | PCP | | + +------+ + Encounter Details +--------+ + + + + | Date | Type | Department | Care Team | Description | +--------+ + + + + | 07/08/ | Imaging | [facility] | Provider, | | | 2018 | Exam | [facility] | MD [address] | | | | | IMAGING [address] | | | | | [address] [place] | [place] [address] | | | | | [place] [address] | | | | | | [phone] | | | +--------+ + + + [...] | | | | | | [address] | | | | | | [place] [address] | | | | | | [phone] | | | | | | | | +--------+---------+ + + + documented as of this encounter Procedures + +--------+ + + + | Procedure Name | Priori | Date/Time | Associated Diagnosis | Comments | | | ty | | | | + +--------+ + + + | [facility] DIGITAL | Routin | 09/29/2013 | | Results for this | | SCREENING BILATERAL | e | 10:35 AM | | procedure are in the | | | | PDT | | results section. | + +--------+ + + + documented in this encounter Results [facility] Digital Screening Bilateral (09/29/2013 10:35 AM PDT) + + | Specimen | + + | | + + + + + | Narrative | Performed At | + + + | External films for comparison only - no result from [place]. | [facility] | + + + + +---------+ + + | Performing | Address | City/State/Zipcode | Phone Number | | Organization | | | | + +---------+ + + | [facility] | | | | + +---------+ + + documented in this encounter Visit Diagnoses Not on filedocumented in this encounter"
--- OUTSIDE RECORDS SUMMARY | ~2019-08-12 | XMS | Encounter Summary ---
Demographics + + + | Address | [address] | | | [place] [address] | + + + | Home Phone | | + + + | Preferred Language | Unknown | + + + | Marital Status | | + + + | Buddhist Affiliation | 1073 | + + + | Race | Unknown | + + + | Ethnic Group | Unknown | + + + Author + + + | Author | [facility] | | | and [place] | + + + | Organization | [facility] | | [...] [place] | | | | | [address] | | + + + + + | Jesus Chanel | ECON | [address] | | | | | [place] [address] | | + + + + + Care Team Providers + +------+ + | Care Interactive Video Technician Name | Role | Phone | + +------+ + | Gissel Zhong MD | PCP | | + +------+ + Reason for Visit + + + | Reason | Comments | + + + | Appointment | auth info for egd/colon | + + + Encounter Details +--------+ + + + + | Date | Type | Department | Care Team | Description | +--------+ + + + + | 04/29/ | Telephone | [facility] | [facility], | Appointment (auth | | 2012 | | GASTROENTEROLOGY | [address] | info for egd/colon) | | | | [address] [place] | [address] | | | | | [address] [place], [place] | [place], [place] | | | | | [address] | [address] | | | | | [phone] | | | +--------+ + + + + Social History + +-------+ +--------+------+ | Tobacco Use | Types | Packs/Day | Years | Date | | | | | Used | | + +-------+ +--------+------+ | Current Every Day | | | | | | Smoker | | | [...] | | | | | [place] [address] | | | | | | [phone] | | | | | | | | +--------+---------+ + + + documented as of this encounter Visit Diagnoses Not on filedocumented in this encounter"
--- OUTSIDE RECORDS SUMMARY | ~2019-08-12 | XMS | Encounter Summary ---
Demographics + + + | Address | [address] | | | [place] [address] | + + + | Home Phone | | + + + | Preferred Language | Unknown | + + + | Marital Status | | + + + | Voodoo Affiliation | 1073 | + + + | Race | Unknown | + + + | Ethnic Group | Unknown | + + + Author + + + | Author | [facility] | | | and [place] | + + + | Organization | [facility] | | | [...] [place] | | | | | [address] | | + + + + + | Jesus Chanel | KARYN | [address] | | | | | [place] [address] | | + + + + + Care Team Providers + +------+ + | Care Credit Control Administrator Name | Role | Phone | + +------+ + | Geraldo Montano MD | PCP | | + +------+ + Encounter Details +--------+ + + + + | Date | Type | Department | Care Team | Description | +--------+ + + + + | 05/25/ | Hospital | [facility] | [place], | | | 2020 | Encounter | [facility] | [address] | | | | | [address] | [address] | | | | | [address] [place], [place] | [place] [address] | | | | | [address] | [phone] | | | | | [phone] | | | +--------+ + + + [...] + + + +---------+ + + | Digestive Enzymes | Take 1 tablet by | | 0 | | | | (SUPER ENZYMES PO) | mouth Daily. | | | | | + + + +---------+ + + | Homeopathic | Apply topically. | | 0 | | | | Products (ARNICARE | Arnica 30x | | | | | | EX) | | | | | | + + + +---------+ + + | | Take 25 mg by mouth. | | 0 | 03/07/20 | | | hydroCHLOROthiazide | | | | 19 | | | 25 mg tablet | | | | | | + + + +---------+ + + | Liniments | Apply topically. | | 0 | | | | (THERAPEUTIC BLUE | | | | | | | ICE EX) | | | | | | + + + +---------+ + + | ondansetron | As needed for | 2 | 0 | 05/23/19 | | | (ZOFRAN) 4 mg tablet | nausea; stop prep; | tablet | | 20 | | | | take 1 tablet; wait | | | | | | | 30 min then resume | | | | | | | prep; repeat 1x prn | | | | | + + + +---------+ + + | PANCREATIN PO | Take 1 tablet by | | 0 | | | | | mouth Daily. | | | | | + + + +---------+ + + | sertraline | Take 50 mg by mouth | | 0 | | | | (ZOLOFT) 50 mg | Daily. | | | | | | tablet | | | | | | + + + +---------+ + + | sodium | Take 177 mLs by | 2 | 0 | 05/23/19 | | | sulfate-potassium | mouth (see | Bottle | | 20 | | | sulfate-magnesium | instruction). Take | | | | | | sulfate (SUPREP | one kit, first dose | | | | | | BOWEL PREP KIT) oral | at 4pm, second dose | | | | | | solution | at 8pm day before | | | | | | | procedure | | | | | + + + +---------+ + + | tocopherol | Take 400 Units by | | 0 | | | | (VITAMIN E) 100 | mouth Daily. Take 2 | | | | | | units capsule | daily | | | | | + + + +---------+ + + | UNABLE TO FIND | Med Name: Heal and | | 0 | | | | | sobelkise | | | | | + + + +---------+ + + | UNABLE TO FIND | Med Name: synbiotic | | 0 | | | | | 365 | | | | | + + [...] +---------+ + + | cyclobenzaprine | Take 1 tablet by | | 0 | 11/02/19 | | | (FLEXERIL) 5 MG | mouth. | | | 19 | 0 | | tablet | | | | | | + + + +---------+ + + | dicyclomine | | | 0 | 05/21/19 | | | (BENTYL) 10 mg | | | | 20 | 0 | | capsule | | | | | | + + + +---------+ + + | fish oil 1,000 mg | 1 capsule. | | 0 | 08/27/19 | | | capsule | | | | 19 | 0 | + + + +---------+ + + | | | | 0 | 04/25/19 | | | HYDROcodone-acetamin | | | | 20 | 0 | | ophen (NORCO) | | | | | | | 7.5-325 mg per | | | | | | | tablet | | | | [...] Sánchez | | | | | | [facility] [address] | | | | | | [phone] | | | | | | | [...] + documented in this encounter Results XR Lumbar Spine 2 or 3 Vw [...] Alignment: There are 5 | | | uwz-qpx-swbfgop lumbar vertebral type bodies. Vertebrae: Normal. | [...] FINDINGS: | | Alignment: There are 5 xfp-rul-zjuxpdi lumbar vertebral type bodies. | | | [...] | | | | Signed by: Jena Cooper Richard | | Sign Date/Time: 05/25/2019 1:21 PM [...]
--- OUTSIDE RECORDS SUMMARY | ~2019-08-12 | XMS | Encounter Summary ---
Demographics + + + | Address | [address] | | | [place] [address] | + + + | Home Phone | | + + + | Preferred Language | Unknown | + + + | Marital Status | | + + + | Mandaen Affiliation | 1073 | + + + | Race | Unknown | + + + | Ethnic Group | Unknown | + + + Author + + + | Author | [facility] | | | and [place] | + + + | Organization | [facility] | | | and [...] [place] | | | | | [address] | | + + + + + | Jesus Chanel | ECON | [address] | | | | | [place] [address] | | + + + + + Care Team Providers + +------+ + | Care Gettering Filament Machine Operator Name | Role | Phone | + +------+ + PCP | Unavailable | + +------+ + Encounter Details +--------+ + + + + | Date | Type | Department | Care Team | Description | +--------+ + + + + | 12/30/ | Hospital | [facility] | | | | 2001 | Encounter | MED CTR EMERGENCY | | | | | | CENTER [address] | | | | | | [place], [place] | | | | | | [address] | | | | | | [phone] | | | +--------+ + + + [...] B | | | | | | [place] [address] | | | | | | [phone] | | | | | | | | +--------+---------+ + + + documented as of this encounter Visit Diagnoses Not on filedocumented in this encounter"
--- OUTSIDE RECORDS SUMMARY | ~2019-08-12 | XMS | Encounter Summary ---
Demographics + + + | Address | [address] | | | [place] [address] | + + + | Home Phone | | + + + | Preferred Language | Unknown | + + + | Marital Status | | + + + | Roman Catholic Affiliation | 1073 | + + + | Race | Unknown | + + + | Ethnic Group | Unknown | + + + Author + + + | Author | [facility] | | | and [place] | + + + | Organization | [facility] | | | [...] [place] | | | | | [address] | | + + + + + | Jesus Chanel | ECON | [address] | | | | | [place] [address] | | + + + + + Care Team Providers + +------+ + | Care Oil Pipeline Dispatcher Name | Role | Phone | + +------+ + PCP | Unavailable | + +------+ + Encounter Details +--------+ + + + + | Date | Type | Department | Care Team | Description | +--------+ + + + + | 02/13/ | Hospital | [facility] | | | | 2002 | Encounter | MED CTR XRAY [address] | | | | | | [address] | | | | | | [place] [address] | | | | | | [phone] | | | +--------+ + + + [...] | | | | | [place] [address] | | | | | | [phone] | | | | | | | | +--------+---------+ + + + documented as of this encounter Visit Diagnoses Not on filedocumented in this encounter"
--- OUTSIDE RECORDS SUMMARY | ~2019-08-12 | XMS | Encounter Summary ---
Demographics + + + | Address | [address] | | | [place] [address] | + + + | Home Phone | | + + + | Preferred Language | Unknown | + + + | Marital Status | | + + + | Pentecostal Affiliation | 1073 | + + + | Race | Unknown | + + + | Ethnic Group | Unknown | + + + Author + + + | Author | [facility] | | | and [place] | + + + | Organization | [facility] | | [...] [place] | | | | | [address] | | + + + + + | Jesus Chanel | KARYN | [address] | | | | | [place] [address] | | + + + + + Care Team Providers + +------+ + | Care Endless Bed Drum Sander Name | Role | Phone | + +------+ + | Geraldo Montano MD | PCP | | + +------+ + Encounter Details +--------+ + + + + | Date | Type | Department | Care Team | Description | +--------+ + + + + | 02/11/ | Hospital | [facility] | AquinoFaustino, | Neurogenic bowel; | | 2018 | Encounter | MED CTR XRAY [address] | MD [address] | Full incontinence of | | | | [address] [place] | [place], [place] | feces; Chronic | | | | [place] [address] | [address] | midline low back | | | | [phone] | | pain with bilateral | | [...] | | | | when due @@ [facility] | | | | | + + [...] | | 2019 | Visit | | SECURITY AGENT [address] | | | | | | [address] | | | | | | [place] [address] | | | | | | [phone] | | | | | | | | +--------+---------+ + + + documented as of this encounter Procedures + +--------+ + + + | Procedure Name | Priori | Date/Time | Associated Diagnosis | Comments | | | ty | | | | + +--------+ + + + | XR LUMBAR SPINE 2 OR | Routin | 02/11/2018 | Neurogenic bowel | Results for this | | 3 VW | e | 12:06 PM | Full incontinence of | procedure are in the | | | | PDT | feces Chronic | results section. | [...] XR Lumbar Spine 2 or 3 Vw (02/11/2018 12:06 PM PDT) + + | Specimen | + + | | + + + + + | Narrative | Performed At | + + + | TWO VIEWS LUMBAR SPINE 02/11/2018 12:06 PM CLINICAL HISTORY: | [facility] | | Back pain COMPARISON: CT AUGUST 2012 FINDINGS: Five non | | | rib-bearing, lumbar type vertebrae are visible. Vertebral height is | | | maintained, without evident fracture or spondylolysis. There is mild | | | multilevel disc space narrowing. Lower lumbar facet hypertrophy is | | | again evident. Mild retrolisthesis is again apparent at L2-3 and | | | L3-4 and mild anterolisthesis persists at L5-S1. The sacroiliac | | | joints and imaged sacrum, bony pelvis and lower ribs are | | | unremarkable. IMPRESSION - 1. FACET HYPERTROPHY AND MILD | | | MULTILEVEL SPONDYLOLISTHESIS. Dictated and Signed by: Julio C Dempsey | | MD Zain Electronically signed: 02/11/2018 1:37 PM | | + + + + + | Procedure Note | + + | Alec, Rad Results In - 02/11/2018 1:40 PM PDT TWO VIEWS LUMBAR SPINE 02/11/2018 12:06 | | PMCLINICAL HISTORY: Back painCOMPARISON: CT AUGUST 2012FINDINGS: Five non rib-bearing, | | lumbar type vertebrae are visible. Vertebralheight is maintained, without evident | | fracture or spondylolysis. There is mildmultilevel disc space narrowing. Lower lumbar | | facet hypertrophy is againevident. Mild retrolisthesis is again apparent at L2-3 and | | L3-4 and mildanterolisthesis persists at L5-S1. The sacroiliac joints and imaged | | sacrum,bony pelvis and lower ribs are unremarkable.IMPRESSION -1. FACET HYPERTROPHY | | AND MILD MULTILEVEL SPONDYLOLISTHESIS.Dictated and Signed by: Julio C Pittman MD | | Electronically signed: 02/11/2018 1:37 PM | |evident. Mild retrolisthesis is again apparent at L2-3 and L3-4 and mild | |anterolisthesis persists at L5-S1. The sacroiliac joints and imaged sacrum, | |bony pelvis and lower ribs are unremarkable. | | | |IMPRESSION - | | | |1. FACET HYPERTROPHY AND MILD MULTILEVEL SPONDYLOLISTHESIS. | | | |Dictated and Signed by: Julio C Pittman MD | | Electronically signed: 02/11/2018 1:37 PM | + + + +---------+ + [...]
--- OUTSIDE RECORDS SUMMARY | ~2019-08-12 | XMS | Encounter Summary ---
Demographics + + + | Address | [address] | | | [place] [address] | + + + | Home Phone | | + + + | Preferred Language | Unknown | + + + | Marital Status | | + + + | Yazdanism Affiliation | 1073 | + + + | Race | Unknown | + + + | Ethnic Group | Unknown | + + + Author + + + | Author | [facility] | | | and [place] | + + + | Organization | [facility] | | | [...] [place] | | | | | [address] | | + + + + + | Jesus Chanel | ECON | [address] | | | | | [place] [address] | | + + + + + Care Team Providers + +------+ + | Care Sensitized Paper Tester Name | Role | Phone | + +------+ + PCP | Unavailable | + +------+ + Encounter Details +--------+ + + + + | Date | Type | Department | Care Team | Description | +--------+ + + + + | 09/01/ | Hospital | [facility] | | | | 1999 | Encounter | MED CTR EMERGENCY | | | | | | CENTER [address] | | | | | | [place], [place] | | | | | | [address] | | | | | | [phone] | | | +--------+ + + + [...] B | | | | | | [place] [address] | | | | | | [phone] | | | | | | | | +--------+---------+ + + + documented as of this encounter Visit Diagnoses Not on filedocumented in this encounter"
--- OUTSIDE RECORDS SUMMARY | ~2019-08-12 | XMS | Encounter Summary ---
Demographics + + + | Address | [address] | | | [place] [address] | + + + | Home Phone | | + + + | Preferred Language | Unknown | + + + | Marital Status | | + + + | Taoism Affiliation | 1073 | + + + | Race | Unknown | + + + | Ethnic Group | Unknown | + + + Author + + + | Author | [facility] | | | and [place] | + + + | Organization | [facility] | | | [...] [place] | | | | | [address] | | + + + + + | Jesus Chanel | ECON | [address] | | | | | [place] [address] | | + + + + + Care Team Providers + +------+ + | Care Job Placement Specialist Name | Role | Phone | + +------+ + PCP | Unavailable | + +------+ + Encounter Details +--------+ + + + + | Date | Type | Department | Care Team | Description | +--------+ + + + + | 03/07/ | Hospital | [facility] | | | | 2002 | Encounter | HEART MED CTR | | | | | | LABORATORY [address] | | | | | | [address] [place] | | | | | | [address] | | | | | | [phone] | | | +--------+ + + + [...] [place] | | | | | | [address] of [address] | | | | | | [place] [address] | | | | | | [phone] | | | | | | | | +--------+---------+ + + + documented as of this encounter Procedures + +--------+ + + + | Procedure Name | Priori | Date/Time | Associated Diagnosis | Comments | | | ty | | | | + +--------+ + + + | SURGICAL PATHOLOGY | Routin | 03/06/2003 | | Results for this | | EXAM | e | 12:00 AM | | procedure are in the | | | | PST | | results section. | + +--------+ + + + documented in this encounter Results Surgical Pathology Exam (03/06/2003 12:00 AM PST) + + | Specimen | + + | | + + + + + | Narrative | Performed At | + + + | SURGICAL PATHOLOGY REPORT | [facility] | | Date Taken: 03/06/2003 Date Received: | | | 03/07/2003 Completed: 03/08/2003 Physician: Jamilah Vivar MD Copy | | | to: DIAGNOSIS: Endometrial curettage: Weakly | | | proliferative endometrium with focal stromal pseudodecidualization | | | consistent with exogenous hormone effect. 0 Rock Garcia, | | | Jena Electronic signature GROSS DESCRIPTION: Received in | | | formalin labeled "endometrial curettings" is an approximate 2.0 cc | | | aggregate of mucohemorrhagic material and blood. The specimen is | | | filtered, wrapped and submitted in a single cassette. () | | | 1: [id number] [address] | | | or Testing performed at: [facility] | | | [facility] Zenon Magaña M.D., | | | Director [address] [facility] [address] [place] [address] Phone: | | | | | + + + + + + + + | Performing | Address | City/State/Zipcode | Phone Number | | Organization | | | | + + + + + | [facility] | [address] | [place] [address] | | | [facility] | | | | | LABORATORY | | | | + + + + + | [facility] | | | | + + + + + documented in this encounter Visit Diagnoses Not on filedocumented in this encounter
--- OUTSIDE RECORDS SUMMARY | ~2019-08-12 | XMS | Clinical Summary ---
Demographics + + + | Address | [address] | | | [place] [address] | + + + | Home Phone | | + + + | Preferred Language | Unknown | + + + | Marital Status | Unknown | + + + | Evangelical Affiliation | Unknown | + + + | Race | Unknown | + + + | Ethnic Group | Unknown | + + + Author + + + | Author | [facility] (Historical as of | | | 12-03-18) | + + + | Organization | [facility] (Historical as of | | | 12-03-18) | + + + | Address | Unknown | + + + | Phone | Unavailable | + + + Support + + +---------+ + | Name | Relationship | Address | Phone | + + +---------+ + | Contact,No | ECON | Unknown | | + + +---------+ + Care Team Providers + +------+ + | Care Mainspring Former Name | Role | Phone | + +------+ + PP | Unavailable | + +------+ + Allergies Not on File Current Medications Not on file Active Problems Not on file Social History + +-------+ +--------+------+ | Tobacco [...] on file | | + + + Plan of Treatment Not on file Results Not on filefrom Last 3 Months Insurance + +--------+ +------+-------+ + | Payer | Benefi | Subscriber | Type | Phone | Address | | | t Plan | ID | | | | | | / | | | | | | | Group | | | | | + +--------+ +------+-------+ + | MEDICARE | MEDICA | [id number] | | | [address] | | | RE | | | | [place] [address] | | | IP-OP | | | | | + +--------+ +------+-------+ + + +--------+ +--------+ + + | Guarantor Name | Accoun | Relation to | Date | Phone | Billing Address | | | t Type | Patient | of | | | | | | | | | | + +--------+ +--------+ + + | YAMILETH CHANEL | Person | Self [birth year] | Home: | [address] | | | al/[place] | | 1950 | [phone] [place] [address] | | | iglesia | | | 2028 | | + +--------+ +--------+ + +"
--- OUTSIDE RECORDS SUMMARY | ~2019-08-12 | XMS | Encounter Summary ---
Demographics + + + | Address | [address] | | | [place] [address] | + + + | Home Phone | | + + + | Preferred Language | Unknown | + + + | Marital Status | | + + + | Buddhism Affiliation | 1073 | + + + | Race | Unknown | + + + | Ethnic Group | Unknown | + + + Author + + + | Author | [facility] | | | and [place] | + + + | Organization | [facility] | | [...] [place] | | | | | [address] | | + + + + + | Jesus Chanel | ECON | [address] | | | | | [place] [address] | | + + + + + Care Team Providers + +------+ + | Care Upholsterer Inside Name | Role | Phone | + +------+ + | Gissel Zhong MD | PCP | | + +------+ + Reason for Visit + + + | Reason | Comments | + + + | Results, Pathology | | + + + Encounter Details +--------+ + + + + | Date | Type | Department | Care Team | Description | +--------+ + + + + | 05/06/ | Telephone | [facility] [place] | Vance Diaz MD | Results, Pathology | | 2012 | | GASTROENTEROLOGY | [address], [place] | | | | | [address] [facility] | [address] [place] | | | | | [address] [place], [place] | [id number] | | | | | [address] | | | | | | [phone] | | | +--------+ + + + [...] | | 2019 | Visit | | CONCRETE MIXER OPERATOR HELPER [address] | | | | | | [address] [facility] | | | | | | [place] [address] | | | | | | [phone] | | | | | | | | +--------+---------+ + + + documented as of this encounter Visit Diagnoses Not on filedocumented in this encounter"
--- OUTSIDE RECORDS SUMMARY | ~2019-08-12 | XMS | Encounter Summary ---
Demographics + + + | Address | [address] | | | [place] [address] | + + + | Home Phone | | + + + | Preferred Language | Unknown | + + + | Marital Status | | + + + | Pentecostalism Affiliation | 1073 | + + + | Race | Unknown | + + + | Ethnic Group | Unknown | + + + Author + + + | Author | [facility] | | | and [place] | + + + | Organization | [facility] | | | [...] [place] | | | | | [address] | | + + + + + | Jesus Chanel | KARYN | [address] | | | | | [place] [address] | | + + + + + Care Team Providers + +------+ + | Care Mac Operator Name | Role | Phone | + +------+ + | Geraldo Montano MD | PCP | | + +------+ + Reason for Visit + + + | Reason | Comments | + + + | Referral | | + + + Encounter Details +--------+ + + + + | Date | Type | Department | Care Team | Description | +--------+ + + + + | 04/21/ | Telephone | [facility] | Jaspreet Newman DO | Referral | | 2019 | | NEUR[address]URGERY [address] | | | | | [address] | [address] | | | | | [place], [place] | [place] [address] | | | | | [address] | [phone] | | | | | [phone] | | | +--------+ + + + [...] | 2019 | Visit | | [facility] [address] | | | | | | [address] | | | | | | [place] [address] | | | | | | [phone] | | | | | | | | +--------+---------+ + + + documented as of this encounter Visit Diagnoses Not on filedocumented in this encounter"
--- OUTSIDE RECORDS SUMMARY | ~2019-08-12 | XMS | Encounter Summary ---
Demographics + + + | Address | [address] | | | [place] [address] | + + + | Home Phone | | + + + | Preferred Language | Unknown | + + + | Marital Status | | + + + | Gnosticism Affiliation | 1073 | + + + | Race | Unknown | + + + | Ethnic Group | Unknown | + + + Author + + + | Author | [facility] | | | and [place] | + + + | Organization | [facility] | | | [...] [place] | | | | | [address] | | + + + + + | Jesus Chanel | KARYN | [address] | | | | | [place] [address] | | + + + + + Care Team Providers + +------+ + | Care Pest Control Service Sales Agent Name | Role | Phone | + +------+ + | Geraldo Montano MD | PCP | | + +------+ + Reason for Visit +--------+ + | Reason | Comments | +--------+ + | Other | | +--------+ + Encounter Details +--------+ + + + + | Date | Type | Department | Care Team | Description | +--------+ + + + + | 06/14/ | Telephone | [facility] | João [place], | Other | | 2020 | | NEUROSURGERY [address] | PAPIER MACHE' MOLDER [address] | | | | | [address] | [address] | | | | | [place], [place] | [place] [address] | | | | | [address] | [phone] | | | | | [phone] | | | +--------+ + + + [...] | 2020 | Visit | | [facility] [address] | | | | | [address] | | | | | | [place] [address] | | | | | | [phone] | | | | | | | | +--------+---------+ + + + documented as of this encounter Visit Diagnoses Not on filedocumented in this encounter"
--- OUTSIDE RECORDS SUMMARY | ~2019-08-12 | XMS | Encounter Summary ---
Demographics + + + | Address | [address] | | | [place] [address] | + + + | Home Phone [...] [place] | | | | | [address] | | + + + + + | Jesus Chanel | ECON | [address] | | | | | [place] [address] | | + + + + + Care Team Providers + +------+ + | Care Game Technician Name | Role | Phone | + +------+ + PCP | Unavailable | + +------+ + Encounter Details +--------+ + + + + | Date | Type | Department | Care Team | Description | +--------+ + + + + | 05/07/ | Hospital | [facility] | | | | 2000 | Encounter | MED CTR XRAY [address] | | | | | | [address] | | | | | | [place] [address] | | | | | | [phone] | | | +--------+ + + + [...] | | | | | [place] [address] | | | | | | [phone] | | | | | | | | +--------+---------+ + + + documented as of this encounter Visit Diagnoses Not on filedocumented in this encounter"
--- OUTSIDE RECORDS SUMMARY | ~2019-08-12 | XMS | Encounter Summary ---
Demographics + + + | Address | [address] | | | [place] [address] | + + + | Home Phone | | + + + | Preferred Language | Unknown | + + + | Marital Status | | + + + | Scientologist Affiliation | 1073 | + + + | Race | Unknown | + + + | Ethnic Group | Unknown | + + + Author + + + | Author | [facility] | | | and [place] | + + + | Organization | [facility] | | [...] [place] | | | | | [address] | | + + + + + | Jesus Chanel | KARYN | [address] | | | | | [place] [address] | | + + + + + Care Team Providers + +------+ + | Care Field Artillery Operations Specialist Name | Role | Phone | + +------+ + | Geraldo Montano MD | PCP | | + +------+ + Reason for Visit +---------+ + | Reason | Comments | +---------+ + | Imaging | | +---------+ + Encounter Details +--------+ + + + + | Date | Type | Department | Care Team | Description | +--------+ + + + + | 06/25/ | Telephone | [facility] | [place], | Imaging | | 2019 | | NEUROSURGERY [address] | | | | | [address] | [address] | | | | | [place], [place] | [place] [address] | | | | | [address] | [phone] | | | | | [phone] | | | +--------+ + + + [...] | | 2019 | Visit | | [address] | | | | | | [address] | | | | | | [place] [address] | | | | | | [phone] | | | | | | | | +--------+---------+ + + + + +---------+--------+ + + | Name | Type | Priori | Associated Diagnoses | Order Schedule | | | | ty | | | + +---------+--------+ + + | XR Lumbar Spine 2 or | Imaging | Routin | DDD (degenerative | Expected: | | 3 Vw | | e | disc disease), | 06/29/2019, Expires: | | | | | lumbar Lumbar facet | 06/25/2020 | | | | | arthropathy | | + +---------+--------+ + + documented as of this encounter Visit Diagnoses + + | Diagnosis | + + | DDD (degenerative disc disease), lumbar - Primary Degeneration of lumbar or | | lumbosacral intervertebral disc | + + | Lumbar facet arthropathy Lumbosacral spondylosis without myelopathy | + + documented in this encounter"
--- OUTSIDE RECORDS SUMMARY | ~2019-08-12 | XMS | Encounter Summary ---
Demographics + + + | Address | [address] | | | [place] [address] | + + + | Home Phone | | + + + | Preferred Language | Unknown | + + + | Marital Status | | + + + | Uatsdin Affiliation | 1073 | + + + | Race | Unknown | + + + | Ethnic Group | Unknown | + + + Author + + + | Author | [facility] | | | and [place] | + + + | Organization | [facility] | | | and [place] | + + + | Address | Unknown | + + + | Phone | Unavailable | + + + Support + + + + + | Name | Relationship | Address | Phone | + + + + + | Dennis Almazan | KARYN | [address] | | | | | [place] | | | | | [address] | | + + + + + | Jesus Chanel | KARYN | [address] | | | | | [place] [address] | | + + + + + Care Team Providers + +------+ + | Care Placer Miner Name | Role | Phone | + +------+ + | Geraldo Montano MD | PCP | | + +------+ + Reason for Visit + + + | Reason | Comments | + + + | Results, Imaging | | + + + Encounter Details +--------+ + + + + | Date | Type | Department | Care Team | Description | +--------+ + + + + | 02/14/ | Telephone | [facility] [place] | Faustino Aquino, | Results, Imaging | | 2017 | | PHYSIATRY [address] | MD [address] | | | | | [address] | [place] | | | | | [place] | [address] | | | | | [address] | | | | | | [phone] | | | +--------+ + + + [...] | | | | | [place] [address] | | | | | | [phone] | | | | | | | | +--------+---------+ + + + documented as of this encounter Visit Diagnoses Not on filedocumented in this encounter"
--- OUTSIDE RECORDS SUMMARY | ~2019-08-12 | XMS | Encounter Summary ---
Demographics + + + | Address | [address] | | | [place] [address] | + + + | Home Phone | | + + + | Preferred Language | Unknown | + + + | Marital Status | | + + + | Sabianism Affiliation | 1073 | + + + | Race | Unknown | + + + | Ethnic Group | Unknown | + + + Author + + + | Author | [facility] | | | and [place] | + + + | Organization | [facility] | | | [...] [place] | | | | | [address] | | + + + + + | Jesus Chanel | KARYN | [address] | | | | | [place] [address] | | + + + + + Care Team Providers + +------+ + | Care Telegraphic Typewriter Operator Chief Name | Role | Phone | + [...] | | | [address] [place] | [place] [address] | | | | | [place] [address] | | | | | | [phone] | | | +--------+ + + + [...] B | | | | | | [place] [address] | | | | | | [phone] | | | | | | | | +--------+---------+ + + + documented as of this encounter Procedures + +--------+ + + + | Procedure Name | Priori | Date/Time | Associated Diagnosis | Comments | | | ty | | | | + +--------+ + + + | MERA DIGITAL | Routin | 06/16/2012 | | Results for this | | SCREENING BILATERAL | e | 12:50 PM | | procedure are in the | | | | PST | | results section. | + +--------+ + + + documented in this encounter Results MERA Digital Screening Bilateral (06/16/2012 12:50 PM PST) + + | Specimen | + + | | + + + + + | Narrative | Performed At | + + + | External films for comparison only - no result from Protection. | [facility] | + + + + +---------+ + + | Performing | Address | City/State/Zipcode | Phone Number | | Organization | | | | + +---------+ + + | [facility] | | | | + +---------+ + + documented in this encounter Visit Diagnoses Not on filedocumented in this encounter"
--- OUTSIDE RECORDS SUMMARY | ~2019-08-12 | XMS | Encounter Summary ---
Demographics + + + | Address | [address] | | | [place] [address] | + + + | Home Phone | | + + + | Preferred Language | Unknown | + + + | Marital Status | | + + + | Orthodox Affiliation | 1073 | + + + | Race | Unknown | + + + | Ethnic Group | Unknown | + + + Author + + + | Author | [facility] | | | and [place] | + + + | Organization | [facility] | | | [...] [place] | | | | | [address] | | + + + + + | Serjio Chanel | ECON | [address] | | | | | [place] [address] | | + + + + + Care Team Providers + +------+ + | Care Infectious Waste Technician Name | Role | Phone | + +------+ + | Vero Montano MD | PCP | | + +------+ + Reason for Visit + + + | Reason | Comments | + + + | Back Pain | | + + + Encounter Details +--------+ + + + + | Date | Type | Department | Care Team | Description | +--------+ + + + + | 07/02/ | Emergency | [facility] | Javy Bynum | Acute right-sided | | 2020 | | [facility] | MD Serj[address] | low back pain with | | | | CENTER [address] | [address] | right-sided sciatica | | | | [place] | [place] [address] | (Primary Dx) | | | | [address] | [phone] | | | | | [phone] | | | +--------+ + + + [...] + + + + | Weight | - | - | | + + + + + | Height | - | - | | + + + + + | Body Mass Index | - | - | | + + + + + documented in this encounter Discharge Instructions AttachmentsThe following attachments cannot be sent through Care Everywhere.Acetaminophen; Hydrocodone tablets or capsules (Norwegian)Back, How It Works (Norwegian)Back Pain, Relieving (E nglish)documented in this encounter Medications at Time of Discharge [...] + + + +---------+ + + | gabapentin | 1 tablet once a day | 90 | 0 | 06/11/19 | | | (NEURONTIN) 300 mg | for 5 days, then 1 | capsule | | 20 | | | capsule | tablet twice a day | | | | | | | for 5 [...] your symptoms. | | | | | + + [...] | 0 | | | | | soothe | | | | | + + [...] + +---------+ + + | | Take 1 tablet by | 15 | 0 | 07/03/19 | | | HYDROcodone-acetamin | mouth every 8 hours | tablet | | 20 | 0 | | ophen (NORCO) 5-325 | as needed for Pain | | | | | | mg per tablet | for up to 5 days. | | | | | + + + +---------+ + + documented as of this encounter Plan of Treatment +--------+---------+ + + + | Date | Type | Specialty | Care Team | Description | +--------+---------+ + + + | 04/27/ | Office | Neurosurgery | João Hill, | | | 2019 | Visit | | FLYER MAK[address] | | | | | | [address] | | | | | | [place] [address] | | | | | | [phone] | | | | | | | | +--------+---------+ + + + + +------+--------+ + + | Name | Type | Priori | Associated Diagnoses | Date/Time | | | | ty | | | + +------+--------+ + + | ED INFORMATION | GUIDO | Routin | | 07/03/2019 8:40 PM | | EXCHANGE | | e | | PDT | + +------+--------+ + + documented as of this encounter [...] | | n - | | | 07/02/ | | | 2019 | | | [...] S?MRN: | | | | | | [id number] | | | [id number] | | | riteri | | | [...] | | | St. | | | [place] | | | y | | | [...] | | | St. | | | [place] | | | y H. | | [...] | | | [id number] | | | [id number] | | | [id number] | | | [...] [email or web address] | | | m | +---+--------+ documented in this encounter Visit Diagnoses + + | Diagnosis | + + | Acute right-sided low back pain with right-sided sciatica - Primary | + + documented in this encounter Administered Medications + + + + +------+------+ | Medication Order | MAR | Action | Dose | Rate | Site | | | Action | Date | | | | + + + + +------+------+ | HYDROcodone-acetaminophen | Dispense | 07/03/19 | 1 tablet | | | | (NORCO) 5-325 mg per tablet (ER | to Home | 20 10:03 | | | | | Prepack) 1 tablet 1 tablet, | | PM PDT | | | | | Oral, EVERY 8 HOURS PRN, pain, | | | | | | | Starting 07/03/19 at 2148, | | | | | | | Patient Address: [address] [address], | | | | | | | [place] [address], | | | | | | + + + + +------+------+ +---+---+ | | | +---+---+ + +-------+ + +---+---+ | HYDROcodone-acetaminophen | Given | 07/03/19 | 1 tablet | | | | (NORCO) 5-325 mg per tablet 1 | | 20 9:59 | | | | | tablet 1 tablet, Oral, ONCE, Mon | | PM PDT | | | | | 07/03/19 at 2150, For 1 dose | | | | | | + +-------+ + +---+---+ +---+---+ | | | +---+---+ + +-------+ +-------+---+---+ | predniSONE (DELTASONE) tablet | Given | 07/03/19 | 10 mg | | | | 10 mg 10 mg, Oral, ONCE, Mon | | 20 9:59 | | | | | 07/03/19 at 2150, For 1 dose | | PM PDT | | | | + +-------+ +-------+---+---+ +---+---+ | | | +---+---+ documented in this encounter"
--- OUTSIDE RECORDS SUMMARY | ~2019-08-12 | XMS | Encounter Summary ---
Demographics + + + | Address | [address] | | | [place] [address] | + + + | Home Phone | | + + + | Preferred Language | Unknown | + + + | Marital Status | | + + + | Rastafarian Affiliation | 1073 | + + + | Race | Unknown | + + + | Ethnic Group | Unknown | + + + Author + + + | Author | [facility] | | | and [place] | + + + | Organization | [facility] | | | and [place] | + + + | Address | Unknown | + + + | Phone | Unavailable | + + + Support + + + + + | Name | Relationship | Address | Phone | + + + + + | Dennis Almazan | KARYN | [address] | | | | | [place] | | | | | [address] | | + + + + + | Jesus Chanel | ECON | [address] | | | | | [place] [address] | | + + + + + Care Team Providers + +------+ + | Care Firewall Engineer Name | Role | Phone | [...] + + + + | 05/09/ | Telephone | [facility] | Vance Diaz MD | Other | | 2012 | | GASTROENTEROLOGY | [address], [place] | | | | | [address] [place] | [address] [place], [place] | | | | | [address] [place], [place] | [address] | | | | | [address] | | | | | | [phone] | | | +--------+ + + + [...] B | | | | | | [place] [address] | | | | | | [phone] | | | | | | | | +--------+---------+ + + + documented as of this encounter Visit Diagnoses Not on filedocumented in this encounter"
--- OUTSIDE RECORDS SUMMARY | ~2019-08-12 | XMS | Encounter Summary ---
Demographics + + + | Address | [address] | | | [place] [address] | + + + | Home Phone | | + + + | Preferred Language | Unknown | + + + | Marital Status | | + + + | Synagogue Affiliation | 1073 | + + + [...] [place] | | | | | [address] | | + + + + + | Jesus Chanel | ECON | [address] | | | | | [place] [address] | | + + + + + Care Team Providers + +------+ + | Care Arborist Name | Role | Phone | + [...] + + | Closed | Specialty | Gastroenterol | Diagnoses | | [place], | | | Services | ogy | Blood in | [facility], | Vance Callahan MD | | | Required | | stool | [facility], | [address], | | | | | Procedures | CLINICAL INFORMATICS PHYSICIAN [address] | [address] | | | | | [place] UPPER GI | [address], [place] | [place], | | | | | ENDOSCOPY,DI | [address] [place] | [place] [address] | | | | | AGNOSIS [place] | [place], [place] | Phone: | | | | | UPPER GI | [address] | [phone] | | | | | ENDOSCOPY,BI | Phone: | Fax: | | | | | [place] | [phone] | [phone] | | | | | COLONOSCOPY, | Fax: | | | | | | DIAGNOSTIC | [phone] | | | | | | [place] | | | | | | | COLONOSCOPY, | | | | | | | BIOPSY | | | +--------+ + + + + + Reason for Visit +--------+ + | Reason | Comments | +--------+ + | Other | blood in stool | +--------+ + Encounter Details +--------+---------+ + + + | Date | Type | Department | Care Team | Description | +--------+---------+ + + + | 04/27/ | Office | [facility] | [facility], | Blood in stool | | 2012 | Visit | GASTROENTEROLOGY | [facility] [address] | (Primary Dx); | | | | [address] | [address], [address] | Abdominal pain; | | | | [address] [place], [place] | [place], [place] | Nausea; Heartburn; | | | | [address] | [phone] | Obesity; Tobacco | | | | [phone] | | user | +--------+---------+ + + + Social History [...] + + + | Blood Pressure | 122/80 | 04/27/2012 8:44 AM | | | | | PST | | + + + + + | Pulse | 76 | 04/27/2012 8:44 AM | | | | | PST | | + + + + + | Temperature | 35.6 C (96 F) | 04/27/2012 8:44 AM | | | | | PST | | + + + + + | Respiratory Rate | 16 | 04/27/2012 8:44 AM | | | | | PST | | + + + + + | Oxygen Saturation | - | - | | + + + + + | Inhaled Oxygen | - | - | | | Concentration | | | | + + + + + | Weight | 82.1 kg (181 lb) | 04/27/2012 8:44 AM | | | | | PST | | + + + + + | Height | 156.2 cm (5' 1.5") | 04/27/2012 8:44 AM | | | | | PST | | + + + + + | Body Mass Index | 33.65 | 04/27/2012 8:44 AM | | | | | PST | | + + + + + documented in this encounter Progress Notes Candis Hardwick ARNP - 04/27/2012 9:03 AM PSTFormatting of this note might be differe nt from the original. Subjective: Patient ID: Yamileth Chanel is a 61 y.o. female. HPI Patient referred by Dr. Zhong due to blood in stool during rectal exam. She notes that when she wipes she has blood on the toilet paper after each BM. She denies a ny changes in her bowels. She takes fiber regularly. She has occasional abdominal pain in lo wer area. She experiences pain about every day. It is better with pain Lortab. She does not know anything that makes her pain worse. Nausea started years ago. She drinks cran-apple juice, which seems to help. Upper abdominal pain is in across entire upper abdominal pain which she describes as "regul ar pain" lying down seems to help pain. She thinks it may be related to increase weight gain . She notices more when she is up cooking dinner. She also experiences heartburn. She was seen by Dr. Orourke last year. She was advised to lose weight at that time. She had to cancel EGD and colonoscopy due to finances. She has never had EGD and colonoscopy in the past. Allergies Allergen Reactions Augmentin Sulfa Antibiotics Past Medical History Diagnosis Date Cerumen impaction Neck arthritis Anxiety Paroxysmal supraventricular tachycardia Osteoarthrosis, generalized, multiple joints Fibromyalgia Depression H/O: GI bleed Degenerative disc disease, lumbar Lumbar spondylosis Lumbosacral radiculopathy Hyperlipidemia 2010 Hypercholesterolemia Lump of breast, left Salivary secretion disturbance GERD (gastroesophageal reflux disease) Hypertension Past Surgical History Procedure Date Endometrial biopsy 02/2003 Excision lump breast 1966 Hysterectomy 2005 partial Leg surgery Family History Problem Relation Age of Onset Diabetes Other High blood pressure Other Stroke Other Arthritis Other Cancer Other Other (See Comment) Other gout Depression Mother Heart disease Father Arthritis Father COPD Father Heart attack Father History Social History Marital Status: Spouse Name: N/A Number of Children: N/A Years of Education: N/A Occupational History Not on file. Social History Main Topics Smoking status: Current Everyday Smoker Smokeless tobacco: Never Used Alcohol Use: No Drug Use: No Sexually Active: Not on file Other Topics Concern Not on file Social History Narrative No narrative on file Review of Systems Constitutional: Negative for fever, chills and unexpected weight change. HENT: Positive for hearing loss and tinnitus. Negative for congestion, rhinorrhea, trouble swallowing and postnasal drip. Eyes: Negative for pain, redness and itching. Respiratory: Positive for shortness of breath. Negative for cough and wheezing. Cardiovascular: Positive for palpitations and leg swelling. Negative for chest pain. Gastrointestinal: Positive for nausea, abdominal pain, diarrhea, constipation, blood in sto ol and anal bleeding. Negative for vomiting and abdominal distention. Genitourinary: Negative for dysuria, urgency, frequency, hematuria and difficulty urinating . Musculoskeletal: Positive for back pain, joint swelling and arthralgias. Skin: Positive for rash. Neurological: Positive for weakness and numbness. Negative for dizziness, seizures, syncope and headaches. Hematological: Negative for adenopathy. Psychiatric/Behavioral: Positive for dysphoric mood. The patient is nervous/anxious. Objective: Physical Exam Physical Exam General: well developed, well nourished, in no acute distress. Head: normocephalic and atraumatic Eyes: Sclera clear Mouth: MMM Lungs: Clear to asucultate bilaterally and throughout Heart: regular rate and rhythm Abdomen: Soft, nontender, nondistended, bowel tones positive times 4 quadrants, negative Aquino' s sign, negative rebound tenderness, no gaurding, no hepatosplenomegaly palpated Rectal: rectal exam prior to procedure. Msk: symmetrical with no deformity, with normal posture and gait, normal strength. Extremities: no clubbing, cyanosis, edema, or deformity noted Neurologic: no focal deficits, cranial nerves II-XII grossly intact Skin: intact without lesions or rashes. Psych: alert and cooperative; normal mood and affect; normal attention span and concentration. Assessment: Rectal bleeding Abdominal pain Nausea Heartburn Obesity Tobacco use Plan: Patient to have EGD and colonoscopy for further evaluation. The procedural techniques, risk s, indications, and alternatives were discussed. Among the risks, are perforation, bleeding , infection, allergic/adverse reactions to medications, and cardiovascular complications. E ach of these could result in hospitalization, additional procedures (including surgery), or other life threatening complications. Patient verbalized understanding. Risk factors to col o-rectal cancer discussed with patient including smoking, obesity, excessive red meat ingest ion, advancing age and first degree family relative with history of colo-rectal cancer discu ssed with patient. Patient to call with any questions or concerns prior to procedure. Discussed obesity and tobacco use as a risk factors for increased heartburn. Discussed felicia t this may be also cause for her abdominal pain. Will follow up with results. Patient is to call with any question or concerns. Any fevers, chills, chest pain, SOB or other serious symptoms patient is to call the office or go to ER . Cc: Gissel Zhong Reviewed most recent labs, imaging, and procedures. documented in t his encounter Plan of Treatment +--------+---------+ + + + | Date | Type | Specialty | Care Team | Description | +--------+---------+ + + + | 08/13/ | Office | Neurosurgery | [place], | | 2019 | Visit | | [facility] [address] | [address] | | [address] | | | | | | [place] [address] | | | | | | [phone] | | | | | | | | +--------+---------+ + + + + + +--------+ + + | Name | Type | Priori | Associated Diagnoses | Order Schedule | | | | ty | | | + + +--------+ + + | Ambulatory referral | Outpatient | Routin | Blood in stool | Expected: 05/02/2012 | | to Gastroenterology | Referral | e | | (Approximate), | | | | | | Expires: 04/27/2013 | + + +--------+ + + documented as of this encounter Visit Diagnoses + + | Diagnosis | + + | Blood in stool - Primary | + + | Abdominal pain Abdominal pain, unspecified site | + + | Nausea Nausea alone | + + | Heartburn | + + | Obesity Obesity, unspecified | + + | Tobacco user Tobacco use disorder | + + documented in this encounter
--- OUTSIDE RECORDS SUMMARY | ~2019-08-12 | XMS | Encounter Summary ---
Demographics + + + | Address | [address] | | | [place] [address] | + + + | Home Phone | | + + + | Preferred Language | Unknown | + + + | Marital Status | | + + + | Christian Affiliation | 1073 | + + + | Race | Unknown | + + + | Ethnic Group | Unknown | + + + Author + + + | Author | [facility] | | | and [place] | + + + | Organization | [facility] | | | [...] [place] | | | | | [address] | | + + + + + | Jesus Chanel | ECON | [address] | | | | | [place] [address] | | + + + + + Care Team Providers + +------+ + | Care Kitchen Bath Designer Name | Role | Phone | [...] Services | ogy | Blood in | [facility], | Vance Callahan MD | | | Required | | stool | [facility], | [address], | | | | | Procedures | OPERATIONS VICE PRESIDENT [address] | [address] | | | | | [place] UPPER GI | [address], [place] | [place], | | | | | ENDOSCOPY,DI | [address] [place] | [place] [address] | | | | | AGNOS[place] | [place], [place] | Phone: | | | | | UPPER GI | [address] | [phone] | | | | | ENDOSCOPY,BI | Phone: | Fax: | | | | | [place] | [phone] | [phone] | | | | | COLONOSCOPY, | Fax: | | | | | | DIAGNOSTIC | [phone] | | | | | | [place] | | | | | | | [...] + + | 04/27/ | Office | [facility] | [facility], | Blood in stool | | 2012 | Visit | GASTROENTEROLOGY | [address] | (Primary Dx); | | | | [address] [place] | [place], [address] | Abdominal pain; | | | | [address] [place], [place] | [place], [place] | Nausea; Heartburn; | | | | [address] | [phone] | Obesity; Tobacco | | | | [phone] | | user | +--------+---------+ + + [...] B | | | | | | [place] [address] | | | | | | [phone] | | | | | | | [...]
--- OUTSIDE RECORDS SUMMARY | ~2019-08-12 | XMS | Encounter Summary ---
Demographics + + + | Address | [address] | | | [place] [address] | + + + | Home Phone | | + + + | Preferred Language | Unknown | + + + | Marital Status | | + + + | Spiritism Affiliation | 1073 | + + + | Race | Unknown | + + + | Ethnic Group | Unknown | + + + Author + + + | Author | [facility] | | | and Vaughn | + + + | Organization | [facility] | | | [...] [place] | | | | | [address] | | + + + + + | Jesus Chanel | ECON | [address] | | | | | [place] [address] | | + + + + + Care Team Providers + +------+ + | Care Physical Sciences Instructor Name | Role | Phone | + [...] | | | | y Lumbar | [address] | | | | | | degenerative | [place], | | | | | | disc | [place] [address] | | | | | | disease | Phone: | | | | | | Fibromyalgia | [phone] | | | | | | | Fax: | | | | | | | [phone] | | +--------+ + + + + [...] | | | n | y | [address] | [place] | | | | | | [place], | [place], [place] | | | | | | [place] [address] | [address] Phone: | | | | | | Phone: | [phone] | | | | | | [phone] | Fax: | | | | | | Fax: | [phone] | | | | | | [phone] | | +--------+ + + + + [...] + + | 10/05/ | Office | [facility] | Faustino Aquino, | Lumbar radiculopathy | | 2013 | Visit | MEDICINE | MD [address] | (Primary Dx); | | | | REHABILITATION [address] | [place] | Lumbar degenerative | | | | [address] | [address] | disc disease; | | | | [place] | | Fibromyalgia; | | | | [address] | | Tobacco dependence | | | | [phone] | | | +--------+---------+ + + + [...] Your inje ction will be performed at [facility]. Please take note of [...] office note has been dictated. Job ID# [id number] signed by Faustino Aquino MD at 10/05/2012 1:39 PM Kia Franklin RN - 10/05/2012 11:08 AM PDTLow back/neck pain x 6 years. Numbness/tingling in bilatera l hands/feet. Faustino Chakraborty MD - 10/05/2012 12:00 AM PDT PHYSICAL MEDICINE AND REHAB [address] [place] [address] FAX: [phone] OFFICE VISIT PHYSICAL MEDICINE REHABILITATION CONSULT CONSULT [...] a chiropractor. Loretta stack has seen an drill bit sharpener. ALLERGIES 1. AUGMENTIN. 2. SULFA ANTIBIOTICS. CURRENT [...] intact in both upper e xtremities with arjnrh-jr-fcsc testing. Coordination is intact in both lower extremities wi th fckn-fo-rpjk slide and gait. Romberg test is negative. [...] the standard of this practitioner to practice [facility] medicine. We discussed that really it is [...] injection. Greater than 45 minutes was spent dkzb-bf-uvpr today with Ms. Chanel, over half of which was spent formulating and discussing her medical treatment plan. Thank you for allowing me to be involved in the care of your patient. If you have any quest ions regarding the care of Ms. Chanel, please do not hesitate to call. Faustino Aquino Jr, MD BAM / JESSICA JOB #: [id number] cc: Gissel Zhong MD A M PDTdocumented in this encounter Plan of Treatment +--------+---------+ + + + | Date | Type | Specialty | Care Team | Description | +--------+---------+ + + + | 08/13/ | Office | Neurosurgery | João Hill, | | | 2019 | Visit | | COMMUNITY DEVELOPMENT WORKER [address] [facility] | | | | | | DRIVE [facility] [address] | | | | | | [place] [address] | | | | | | [phone] | | | | | | | [...]
--- OUTSIDE RECORDS SUMMARY | ~2019-08-12 | XMS | Encounter Summary ---
Demographics + + + | Address | [address] | | | [place] [address] | + + + | Home Phone | | + + + | Preferred Language | Unknown | + + + | Marital Status | | + + + | Christianity Affiliation | 1073 | + + + | Race | Unknown | + + + | Ethnic Group | Unknown | + + + Author + + + | Author | [facility] | | | and [place] | + + + | Organization | [facility] | | | [...] [place] | | | | | [address] | | + + + + + | Jesus Chanel | ECON | [address] | | | | | [place] [address] | | + + + + + Care Team Providers + +------+ + | Care Contracts Manager Name | Role | Phone | + [...] + + | 04/29/ | Telephone | [facility], | Appointment (auth | | 2012 | | GASTROENTEROLOGY | ANA Chirinos [address] | info for egd/colon) | | | | [address] [place] | [place], [place] | | | | | [address] [place], [place] | [place], [place] | | | | | [address] | [address] | | | | | [phone] | | | +--------+ + + + [...] | | | | | [place] [address] | | | | | | [phone] | | | | | | | | +--------+---------+ + + + documented as of this encounter Visit Diagnoses Not on filedocumented in this encounter"
--- OUTSIDE RECORDS SUMMARY | ~2019-08-12 | XMS | Encounter Summary ---
Demographics + + + | Address | [address] | | | [place] [address] | + + + | Home Phone | | + + + | Preferred Language | Unknown | + + + | Marital Status | | + + + | Protestant Affiliation | 1073 | + + + [...] [place] | | | | | [address] | | + + + + + | Jesus Chanel | ECON | [address] | | | | | [place] [address] | | + + + + + Care Team Providers + +------+ + | Care Diamond Sawer Name | Role | Phone | + +------+ + PCP | Unavailable | + +------+ + Encounter Details +--------+ + + + + | Date | Type | Department | Care Team | Description | +--------+ + + + + | 02/27/ | Hospital | [facility] | | | | 2002 | Encounter | MED CTR EMERGENCY | | | | | | CENTER [address] | | | | | | [place] | | | | | | [address] | | | | | | [phone] | | | +--------+ + + + [...] B | | | | | | [place] [address] | | | | | | [phone] | | | | | | | | +--------+---------+ + + + documented as of this encounter Visit Diagnoses Not on filedocumented in this encounter"
--- OUTSIDE RECORDS SUMMARY | ~2019-08-12 | XMS | Encounter Summary ---
Demographics + + + | Address | [address] | | | [place] [address] | + + + | Home Phone | | + + + | Preferred Language | Unknown | + + + | Marital Status | | + + + | Moravian Affiliation | 1073 | + + + | Race | Unknown | + + + | Ethnic Group | Unknown | + + + Author + + + | Author | [facility] | | | and [place] | + + + | Organization | [facility] | | [...] [place] | | | | | [address] | | + + + + + | Jesus Chanel | KARYN | [address] | | | | | [place] [address] | | + + + + + Care Team Providers + +------+ + | Care Set Up And Lay Out Inspector Name | Role | Phone | + [...] | | | [address] [place] | [place] [address] | | | | | [place] [address] | | | | | | [phone] | | | +--------+ + + + [...] B | | | | | | [place] [address] | | | | | | [phone] | | | | | | | | +--------+---------+ + + + documented as of this encounter Procedures + +--------+ + + + | Procedure Name | Priori | Date/Time | Associated Diagnosis | Comments | | | ty | | | | + +--------+ + + + | MERA DIGITAL | Routin | 07/30/2015 | | Results for this | | SCREENING BILATERAL | e | 11:45 AM | | procedure are in the | | | | PDT | | results section. | + +--------+ + + + documented in this encounter Results MERA Digital Screening Bilateral (07/30/2015 11:45 AM PDT) + + | Specimen | + + | | + + + + + | Narrative | Performed At | + + + | External films for comparison only - no result from [facility]. | [facility] | + + + + +---------+ + + | Performing | Address | City/State/Zipcode | Phone Number | | Organization | | | | + +---------+ + + | [facility] | | | | + +---------+ + + documented in this encounter Visit Diagnoses Not on filedocumented in this encounter"
--- OUTSIDE RECORDS SUMMARY | ~2019-08-12 | XMS | Encounter Summary ---
Demographics + + + | Address | [address] | | | [place] [address] | + + + | Home Phone | | + + + | Preferred Language | Unknown | + + + | Marital Status | | + + + | Evangelical Affiliation | 1073 | + + + | Race | Unknown | + + + | Ethnic Group | Unknown | + + + Author + + + | Author | [facility] | | | and [place] | + + + | Organization | [facility] | | [...] [place] | | | | | [address] | | + + + + + | Jesus Chanel | KARYN | [address] | | | | | [place] [address] | | + + + + + Care Team Providers + +------+ + | Care Car Stereo Installer Name | Role | Phone | + [...] + + | 02/14/ | Telephone | [facility] [place] | Faustino Aquino, | Results, Imaging | | 2017 | | PHYSIATRY [address] | MD [address] | | | | | [address] | [place] | | | | | [place] | [address] | | | | | [address] | | | | | | [phone] | | | +--------+ + + + [...] | | | | | [place] [address] | | | | | | [phone] | | | | | | | | +--------+---------+ + + + documented as of this encounter Visit Diagnoses Not on filedocumented in this encounter"
--- OUTSIDE RECORDS SUMMARY | ~2019-08-12 | XMS | Encounter Summary ---
Demographics + + + | Address | [address] | | | [place] [address] | + + + | Home Phone | | + + + | Preferred Language | Unknown | + + + | Marital Status | | + + + | Yarsani Affiliation | 1073 | + + + [...] [place] | | | | | [address] | | + + + + + | Serjio Chanel | ECON | [address] | | | | | [place] [address] | | + + + + + Care Team Providers + +------+ + | Care Cigar Packer And Shader Name | Role | Phone | + [...] + + | 07/02/ | Emergency | [facility] | Javy Bynum | Acute right-sided | | 2020 | | MED CTR EMERGENCY | MD Serjio [address] | low back pain with | | | | CENTER [address] | [address] [place] | right-sided sciatica | | | | [place] | [place] [address] | (Primary Dx) | | | | [address] | [phone] | | | | | [phone] | | | +--------+ + + + [...] through Care Everywhere.Acetaminophen; Hydrocodone tablets or capsules (Nicaraguan)Back, How It Works (Nicaraguan)Back Pain, Relieving (E nglish)documented in this encounter [...] | | 2019 | Visit | | HELICOPTER REPAIRER [address] | | | | | | [address] | | | | | | [place] [address] | | | | | | [phone] | | | | | | | [...] S?MRN: | | | | | | [id number] | | | [id number] | | | riteri | | | [...] | | | St. | | | [place] | | | y | | | [...] | | | St. | | | Ktay | | | [facility] | | | [...] | | | St. | | | [place] | | | y H. | | [...] | | | [id number] | | | [id number] | | | [id number] | | | [...] | | | | | Patient Address: [place] [address], | | | | | | | [place] [address], | | | | | | + [...]
--- OUTSIDE RECORDS SUMMARY | ~2019-08-12 | XMS | Encounter Summary ---
Demographics + + + | Address | [address] | | | [place] [address] | + + + | Home Phone | | + + + | Preferred Language | Unknown | + + + | Marital Status | | + + + | Taoist Affiliation | 1073 | + + + [...] [place] | | | | | [address] | | + + + + + | Jesus Chanel | KARYN | [address] | | | | | [place] [address] | | + + + + + Care Team Providers + +------+ + | Care Processor Helper Name | Role | Phone | + [...] + + | 07/19/ | Telephone | [facility] | João Hill, | Imaging (Orders) | | 2020 | | NEUROSURGERY [address] | SHIPYARD PAINTER [address] | | | | | [address] | [address] | | | | | [place], [place] | [place] [address] | | | | | [address] | [phone] | | | | | [phone] | | | +--------+ + + + [...] | | | | | [place] [address] | | | | | | [phone] | | | | | | | | +--------+---------+ + + + documented as of this encounter Visit Diagnoses Not on filedocumented in this encounter"
--- OUTSIDE RECORDS SUMMARY | ~2019-08-12 | XMS | Encounter Summary ---
Demographics + + + | Address | [address] | | | [place] [address] | + + + | Home Phone | | + + + | Preferred Language | Unknown | + + + | Marital Status | | + + + | Taoist Affiliation | 1073 | + + + | Race | Unknown | + + + | Ethnic Group | Unknown | + + + Author + + + | Author | [facility] | | | and [place] | + + + | Organization | [facility] | | [...] [place] | | | | | [address] | | + + + + + | Jesus Chanel | ECON | [address] | | | | | [place] [address] | | + + + + + Care Team Providers + +------+ + | Care Health Outcomes Liaison Name | Role | Phone | + [...] | +--------+ + + + + | 04/20/ | Emergency | [facility] | Jesus Zavaleta | Acute bilateral low | | 2020 | | MED CTR EMERGENCY | Edcrys Andre MD | back pain with | | | | CENTER [address] | [address] | sciatica, sciatica | | | | [place], [place] | [place], [place] | laterality | | | | [address] | [address] | unspecified (Primary | | | | [phone] | | Dx); Spinal | | | | | | stenosis of lumbar | | | | | | region without | | | | | | neurogenic | | | | | | claudication | +--------+ + + + + Social [...] + + + | Blood Pressure | 115/61 | 04/20/2019 9:20 PM | | | | | PST | | + + + + + | Pulse | 81 | 04/20/2019 9:20 PM | | | | | PST | | + + + + + | Temperature | 37.1 C (98.7 F) | 04/20/2019 6:34 PM | | | | | PST | | + + + + + | Respiratory Rate | 14 | 04/20/2019 9:20 PM | | | | | PST | | + + + + + | Oxygen Saturation | 94% | 04/20/2019 9:20 PM | | | | | PST | | + + + + + | Inhaled Oxygen | - | - | | | Concentration | | | | + + + + + | Weight | 65.3 kg (144 lb) | 04/20/2019 6:34 PM | | | | | PST | | + + + + + | Height | 154.9 cm (5' 1") | 04/20/2019 6:34 PM | | | | | PST | | + + + + + | Body Mass Index | 27.21 | 04/20/2019 6:34 PM | | | | | PST | | + + + + + documented in this encounter Discharge Instructions Instructions Jesus Zavaleta MD - 04/20/2019For severe worsening pain. Gweno w-up in medical clinic. Follow-up in neurosurgery clinic. Return for worsening symptoms. AttachmentsThe following attachments cannot be sent through Care Everywhere.Acetaminophen; Hydrocodone tablets or capsules (Paraguayan)documented in this encounter Medications at Time of [...] + + + +---------+ + + | aluminum & | Take 30 mLs by mouth | 240 mL | 0 | 04/20/19 | | | magnesium | every 6 hours as | | | 20 | 0 | | hydroxide-simethicon | needed for | | | | | | e (MAALOX PLUS | Indigestion. | | | | | | REGULAR STRENGTH) | | | | | | | 200-200-20 mg/5 mL | | | | | | | suspension | | | | | | + [...] + +---------+ + + | | Take 1-2 tablets by | 20 | 0 | 04/20/19 | | | HYDROcodone-acetamin | mouth every 6 hours | tablet | | 20 | 0 | | ophen (NORCO) 5-325 | as needed for Pain. | | | | | | mg per tablet | | | | | [...] | | 2019 | Visit | | FIELD TALENT QUALIFICATION SPECIALIST [address] | | | | | | [address] | | | | | | [place] [address] | | | | | | [phone] | | | | | | | | +--------+---------+ + + + documented as of this encounter Visit Diagnoses + + | Diagnosis | + + | Acute bilateral low back pain with sciatica, sciatica laterality unspecified - Primary | + + | Spinal stenosis of lumbar region without neurogenic claudication Spinal stenosis, | | lumbar region, without neurogenic claudication | + + documented in this encounter Administered Medications + +--------+ +--------+------+------+ | Medication Order | MAR | Action | Dose | Rate | Site | | | Action | Date | | | | + +--------+ +--------+------+------+ | aluminum & magnesium | Given | 04/20/19 | 30 mLs | | | | hydroxide-simethicone (MAALOX | | 20 8:42 | | | | | PLUS REGULAR STRENGTH) 200-200-20 | | PM PST | | | | | mg/5 mL suspension 30 mL 30 mL, | | | | | | | Oral, ONCE, Nyla 04/20/19 at 2015, | | | | | | | For 1 dose, Og howell., | | | | | | + +--------+ +--------+------+------+ +---+---+ | | | +---+---+ + + + + +---+---+ | HYDROcodone-acetaminophen | Dispense | 04/20/19 | 1 tablet | | | | (NORCO) 5-325 mg per tablet (ER | to Home | 20 9:17 | | | | | Prepack) 1-2 tablet 1-2 tablet, | | PM PST | | | | | Oral, EVERY 6 HOURS PRN, pain, | | | | | | | Starting Nyla 04/20/19 at 2112, | | | | | | | Patient Address: [place] [address], | | | | | | | [place] [address], | | | | | | + + + + +---+---+ +---+---+ | | | +---+---+ + +-------+ +------+---+ + | HYDROmorphone (DILAUDID) | Given | 04/20/19 | 1 mg | | Deltoid- | | injection 1 mg 1 mg, | | 20 8:42 | | | Right | | Intramuscular, ONCE, Nyla 04/20/19 | | PM PST | | | | | at 2015, For 1 dose | | | | | | + +-------+ +------+---+ + +---+---+ | | | +---+---+ + +-------+ +------+---+---+ | ondansetron (ZOGREGG BERRY) | Given | 04/20/19 | 4 mg | | | | disintegrating tablet 4 mg 4 mg, | | 20 8:43 | | | | | Oral, ONCE, [facility] 04/20/19 at 2015, | | PM PST | | | | | For 1 dose | | | | | | + +-------+ +------+---+---+ +---+---+ | | | +---+---+ documented in this encounter
--- OUTSIDE RECORDS SUMMARY | ~2019-08-12 | XMS | Encounter Summary ---
Demographics + + + | Address | [address] | | | [place] [address] | + + + | Home Phone | | + + + | Preferred Language | Unknown | + + + | Marital Status | | + + + | Presybeterian Affiliation | 1073 | + + + [...] [place] | | | | | [address] | | + + + + + | Jesus Chanel | KARYN | [address] | | | | | [place] [address] | | + + + + + Care Team Providers + +------+ + | Care Industrial Photographer Name | Role | Phone | + +------+ + | Gissel Zhong MD | PCP | | + +------+ + Encounter Details +--------+ + + + + | Date | Type | Department | Care Team | Description | +--------+ + + + + | 05/04/ | Hospital | [facility] | Vance Diaz MD | | | 2012 | Encounter | MED CTR MP INTRA OP | [address], [place] | | | | | [address] | [address] [place], [place] | | | | | [place], [place] | [address] | | | | | [address] | | | | | | [phone] | | | +--------+ + + + [...] + + + +---------+ + + | amitriptyline | Take 100 mg by mouth | | 0 | 12/31/19 | | | (ELAVIL) 100 MG | 2 times daily. | | | 12 | 6 | | tablet | | | | | | + + + +---------+ + + | clonazePAM | 1/2 twice daily | | 0 | 12/31/19 | | | (KLONOPIN) 1 mg | | | | 12 | 8 | | tablet | | | | | | + + + +---------+ + + | cloNIDine | | | 0 | 12/31/19 | | | (CATAPRES) 0.1 mg | | | | 12 | 3 | | tablet | | | | | | + + + +---------+ + + | | 1-2 tablets by mouth | | 0 | 12/31/19 | | | diphenoxylate-atropi | 3-4 times per day | | | 12 | 3 | | ne (LOMOTIL) | as needed | | | | | | 2.5-0.025 mg per | | | | | [...] + + + +---------+ + + | LORazepam (ATIVAN) | Take 1 mg by mouth 2 | | 0 | 12/31/19 | | | 1 mg tablet | times daily. | | | 12 | 3 | + + + +---------+ + + | lovastatin | Take 20 mg by mouth | | 0 | 12/31/19 | | | (MEVACOR) 20 mg | Daily. | | | 12 | 6 | | tablet | | | | | | + + + +---------+ + + | metoprolol | Take 50 mg by mouth | | 0 | 12/31/19 | | | tartrate (LOPRESSOR) | Daily. | | | 12 | 3 | | 50 mg tablet | | | | | | + + + +---------+ + + | omeprazole (EQL | Take 20 mg by mouth | | 0 | 12/31/19 | | | OMEPRAZOLE) 20 mg | Daily. | | | 12 | 6 | | TBEC | | | | | | + [...] | | 2019 | Visit | | DIVISION HEAD [address] | | | | | | [address] | | | | | | [place] [address] | | | | | | [phone] | | | | | | | | +--------+---------+ + + + documented as of this encounter Procedures + +--------+ + + + | Procedure Name | Priori | Date/Time | Associated Diagnosis | Comments | | | ty | | | | + +--------+ + + + | HELICOBACTER PYLORI | Routin | 05/04/2012 | | Results for this | | BIOPSY | e | 1:11 PM | | procedure are in the | | | | PST | | results section. | + +--------+ + + + | HELICOBACTER PYLORI | Routin | 05/04/2012 | | Results for this | | BIOPSY | e | 12:24 PM | | procedure are in the | | | | PST | | results section. | + +--------+ + + + documented in this encounter Results Helicobactor pylori Biopsy (05/04/2012 1:11 PM PST) + + + + + + | Component | Value | Ref Range | Performed | Pathologist | | | | | At | Signature | + + + + + + | GASTRIC | Negative for Urease | | [facility] | | | BIOPSY | | | [facility] | | | UREASE TEST | | | MEDICAL | | | | | | CENTER - | | | | | | LABORATORY | | + + + + + + + + | Specimen | + + | | + + + + + + + | Performing | Address | City/State/Zipcode | Phone Number | | Organization | | | | + + + + + | [facility] | [address] | [place] | [phone] | | [facility] | | [address] | | | - LABORATORY | | | | + + + + + | [facility] | [address] | [place], [place] | | | [facility] | | [address] | | | - LABORATORY | | | | + + + + + Helicobactor pylori Biopsy (05/04/2012 12:24 PM PST) + + + + + + | Component | Value | Ref Range | Performed | Pathologist | | | | | At | Signature | + + + + + + | GASTRIC | [facility]. P[facility] BIOPSY: | | [facility] | | | BIOPSY | Negative for Urease | | [facility] | | | UREASE TEST | | | MEDICAL | | | | | | CENTER - | | | | | | LABORATORY | | + + + + + + + + | Specimen | + + | Soft tissue sample | | (specimen) - Other | + + + + + | Narrative | Performed At | + + + | Collect By: | [facility] | | | [facility] | | | [facility] | | | - LABORATORY | + + + + + + + + | Performing | Address | City/State/Zipcode | Phone Number | | Organization | | | | + + + + + | [facility] | [address] | [place] | [phone] | | [facility] | | [address] | | | - LABORATORY | | | | + + + + + | [facility] | [address] | [place] | | | [facility] | | [address] | | | - LABORATORY | | | | + + + + + documented in this encounter Visit Diagnoses Not on filedocumented in this encounter"
--- OUTSIDE RECORDS SUMMARY | ~2019-08-12 | XMS | Encounter Summary ---
Demographics + + + | Address | [address] | | | [place] [address] | + + + | Home Phone | | + + + | Preferred Language | Unknown | + + + | Marital Status | | + + + | Buddhist Affiliation | 1073 | + + + | Race | Unknown | + + + | Ethnic Group | Unknown | + + + Author + + + | Author | [facility] | | | and [place] | + + + | Organization | [facility] | | [...] [place] | | | | | [address] | | + + + + + | Jesus Chanel | ECON | [address] | | | | | [place] [address] | | + + + + + Care Team Providers + +------+ + | Care Animal Park Code Enforcement Officer Name | Role | Phone | + +------+ + PCP | Unavailable | + +------+ + Encounter Details +--------+ + + + + | Date | Type | Department | Care Team | Description | +--------+ + + + + | 04/30/ | Hospital | [facility] | | | | 2010 | Encounter | MED CTR XRAY [address] | | | | | [address] | | | | | | [place] [address] | | | | | | [phone] | | | +--------+ + + + [...] | | | | | [place] [address] | | | | | | [phone] | | | | | | | | +--------+---------+ + + + documented as of this encounter Visit Diagnoses Not on filedocumented in this encounter"
--- OUTSIDE RECORDS SUMMARY | ~2019-08-12 | XMS | Encounter Summary ---
Demographics + + + | Address | [address] | | | [place] [address] | + + + | Home Phone | | + + + | Preferred Language | Unknown | + + + | Marital Status | | + + + | Zoroastrianism Affiliation | 1073 | + + + | Race | Unknown | + + + | Ethnic Group | Unknown | + + + Author + + + | Author | [facility] | | | and [place] | + + + | Organization | [facility] | | | [...] [place] | | | | | [address] | | + + + + + | Jesus Chanel | ECON | [address] | | | | | [place] [address] | | + + + + + Care Team Providers + +------+ + | Care Driller And Broacher Name | Role | Phone | + +------+ + PCP | Unavailable | + +------+ + Encounter Details +--------+ + + + + | Date | Type | Department | Care Team | Description | +--------+ + + + + | 12/30/ | Hospital | [facility] | | | | 2001 | Encounter | [facility] | | | | | CENTER [address] | | | | | | [place], [place] | | | | | | [address] | | | | | | [phone] | | | +--------+ + + + [...] B | | | | | | [place] [address] | | | | | | [phone] | | | | | | | | +--------+---------+ + + + documented as of this encounter Visit Diagnoses Not on filedocumented in this encounter"
--- OUTSIDE RECORDS SUMMARY | ~2019-08-12 | XMS | Encounter Summary ---
Demographics + + + | Address | [address] | | | [place] [address] | + + + | Home Phone | | + + + | Preferred Language | Unknown | + + + | Marital Status | | + + + | Presybeterian Affiliation | 1073 | + + + | Race | Unknown | + + + | Ethnic Group | Unknown | + + + Author + + + | Author | [facility] | | | and [place]n | + + + | Organization | [facility] | [...] [place] | | | | | [address] | | + + + + + | Jesus Chanel | ECON | [address] | | | | | [place] [address] | | + + + + + Care Team Providers + +------+ + | Care Aircraft Maintenance Engineer Name | Role | Phone | + +------+ + PCP | Unavailable | + +------+ + Encounter Details +--------+ + + + + | Date | Type | Department | Care Team | Description | +--------+ + + + + | 03/07/ | Hospital | [facility] | | | | 2002 | Encounter | [facility] MED CTR | | | | | | LABORATORY [address] | | | | | | [address] [place] [place] | | | | | | [address] | | | | | | [phone] | | | +--------+ + + + [...] VERONICA | | | | | | [facility] [address] | | | | | | [place] [address] | | | | | | [phone] | | | | | | | [...] + + | SURGICAL PATHOLOGY REPORT | [facility] | | Date Taken: 03/06/2003 Date Received: [...] single cassette. () | | | 1: [address] [address] | | | or Testing performed at: [place] | | | [facility] Zenon Magaña M.D., | | | Director [address] [facility] [address] [place] [address] Phone: | | | | | + + + + + + + + | Performing | Address | City/State/Zipcode | Phone Number | | Organization | | | | + + + + + | [place] | [address] | [place] [address] | | | [facility] | | | | | LABORATORY | | | | + + + + + | [facility] | | | | + + + + + documented in this encounter Visit Diagnoses Not on filedocumented in this encounter
--- OUTSIDE RECORDS SUMMARY | ~2019-08-12 | XMS | Encounter Summary ---
Demographics + + + | Address | [address] | | | [place] [address] | + + + | Home Phone | | + + + | Preferred Language | Unknown | + + + | Marital Status | | + + + | Druze Affiliation | 1073 | + + + | Race | Unknown | + + + | Ethnic Group | Unknown | + + + Author + + + | Author | [facility] | | | and [place] | + + + | Organization | [facility] | | | [...] [place] | | | | | [address] | | + + + + + | Jesus Chanel | KARYN | [address] | | | | | [place] [address] | | + + + + + Care Team Providers + +------+ + | Care Online Trader Name | Role | Phone | + +------+ + | Geraldo Montano MD | PCP | | + +------+ + Encounter Details +--------+ + + + + | Date | Type | Department | Care Team | Description | +--------+ + + + + | 07/15/ | Hospital | [facility] | Geraldo Montano MD | Breast screening | | 2018 | Encounter | MED CTR MAMMOGRAPHY | [address] [facility] | | | | | [address] | [place], [place] | | | | | [place], [place] | [address] | | | | | [address] | | | | | | [phone] | | | +--------+ + + + [...] | | 2019 | Visit | | NAME PLATE STAMPING MACHINE OPERATOR [address] | | | | | | [address] | | | | | | [place] [address] | | | | | | [phone] | | | | | | | [...]
--- OUTSIDE RECORDS SUMMARY | ~2019-08-12 | XMS | Encounter Summary ---
Demographics + + + | Address | [address] | | | [place] [address] | + + + | Home Phone [...] [place] | | | | | [address] | | + + + + + | Jesus Chanel | ECON | [address] | | | | | [place] [address] | | + + + + + Care Team Providers + +------+ + | Care Stock Preparer Name | Role | Phone | + +------+ + PCP | Unavailable | + +------+ + Encounter Details +--------+ + + + + | Date | Type | Department | Care Team | Description | +--------+ + + + + | 04/20/ | Abstract | [facility] [place] | [facility], | | | 2012 | | GASTROENTEROLOGY | ANA Chirinos [address] | | | | | [address] [place] | [place], [place] | | | | | [address] [facility], [place] | [place], [place] | | | | | [address] | [address] | | | | | [phone] | | | +--------+ + + + + Social History + +-------+ +--------+------+ | Tobacco Use | Types | Packs/Day | Years | Date | | | | | Used | | + +-------+ +--------+------+ | Smoker, Current | | | | | | Status Unknown | | | | | + +-------+ [...] | | | | | [place] [address] | | | | | | [phone] | | | | | | | | +--------+---------+ + + + documented as of this encounter Visit Diagnoses Not on filedocumented in this encounter"
--- OUTSIDE RECORDS SUMMARY | ~2019-08-12 | XMS | Encounter Summary ---
Demographics + + + | Address | [address] | | | [place] [address] | + + + | Home Phone | | + + + | Preferred Language | Unknown | + + + | Marital Status | | + + + | Scientology Affiliation | 1073 | + + + [...] [place] | | | | | [address] | | + + + + + | Jesus Chanel | ECON | [address] | | | | | [place] [address] | | + + + + + Care Team Providers + +------+ + | Care Xerox Machine Assembler Name | Role | Phone | + +------+ + PCP | Unavailable | + +------+ + Encounter Details +--------+ + + + + | Date | Type | Department | Care Team | Description | +--------+ + + + + | 02/27/ | Hospital | [facility] | | | | 2002 | Encounter | MED CTR EMERGENCY | | | | | | CENTER [address] | | | | | | [place] | | | | | | [address] | | | | | | [phone] | | | +--------+ + + + [...] B | | | | | | [place] [address] | | | | | | [phone] | | | | | | | | +--------+---------+ + + + documented as of this encounter Visit Diagnoses Not on filedocumented in this encounter"
--- OUTSIDE RECORDS SUMMARY | ~2019-08-12 | XMS | Encounter Summary ---
Demographics + + + | Address | [address] | | | [place] [address] | + + + | Home Phone [...] [place] | | | | | [address] | | + + + + + | Jesus Chanel | ECON | [address] | | | | | [place] [address] | | + + + + + Care Team Providers + +------+ + | Care Chocolate Finisher Name | Role | Phone | + +------+ + | Geraldo Montano MD | PCP | | + +------+ + Reason for Visit + + + | Reason | Comments | + + + | Procedure | cancel egd/colon | + + + Encounter Details +--------+ + + + + | Date | Type | Department | Care Team | Description | +--------+ + + + + | 06/19/ | Telephone | [facility] [place] | Josue Vazquez | Procedure (cancel | | 2019 | | GASTROENTEROLOGY | MD [address] | egd/colon) | | | | [address] [place] | [address] [place] [address] | | | | | [address] [place] [address] | [place] [address] | | | | | [address] | [phone] | | | | | [phone] | | | +--------+ + + + [...] | | | | | [place] [address] | | | | | | [phone] | | | | | | | | +--------+---------+ + + + documented as of this encounter Visit Diagnoses Not on filedocumented in this encounter"
--- OUTSIDE RECORDS SUMMARY | ~2019-08-12 | XMS | Encounter Summary ---
Demographics + + + | Address | [address] | | | [place] [address] | + + + | Home Phone | | + + + | Preferred Language | Unknown | + + + | Marital Status | | + + + | Mosque Affiliation | 1073 | + + + [...] [place] | | | | | [address] | | + + + + + | Jesus Chanel | KARYN | [address] | | | | | [place] [address] | | + + + + + Care Team Providers + +------+ + | Care Police Officer Crime Prevention Name | Role | Phone | + +------+ + | Gissel Zhong MD | PCP | | + +------+ + Encounter Details +--------+ + + + + | Date | Type | Department | Care Team | Description | +--------+ + + + + | 11/15/ | Hospital | [facility] | Armand Torrez | | | 2012 | Encounter | MED CTR XRAY [address] | T, MD [address] | | | | | [place] | [place], [place] | | | | | [place] [address] | [address] | | | | | [phone] | | | +--------+ + + + [...] | | 2019 | Visit | | CREDIT REPORT CHECKER [address] | | | | [address] | | | | | | [place] [address] | | | | | | [phone] | | | | | | | | +--------+---------+ + + + documented as of this encounter Procedures + +--------+ + + + | Procedure Name | Priori | Date/Time | Associated Diagnosis | Comments | | | ty | | | | + +--------+ + + + | FL EPIDURAL STEROID | Routin | 11/15/2012 | | Results for this | | INJECTION LUMBAR | e | 6:44 PM | | procedure are in the | | TRANSFORAMINAL | | PDT | | results section. | + +--------+ + + + documented in this encounter Results FL KAYLAN Lumbar Transforaminal (11/15/2012 6:44 PM PDT) + + | Specimen | + + | | + + + + + | Narrative | Performed At | + + + | [facility] | [place] | | Department [address] [facility] [place] | [place] | | [ rep [address]] [ rep [facility] | | st zip] Signed | - IMAGING | | | | | Patient Name: YAMILETH CHANEL Physician: | | | : 1950 Age: 61 Sex: F Unit #: [id number] | | | Exam Date: 11/15/12 Location: [facility] | | | Report #: [id number] Page: | | | %(RAD)RES..mtdd.print.filter("pg") of %(RAD) | | | RES..mtdd.print.filter("tpg") | | | | | | Accession Number: [id number] | | | EPIDURAL STEROID INJECTION CLINICAL HISTORY: ICE-9 CODE: | | | 724.4 LUMBAR RADICULOPATHY. Ms. Yamileth Chanel presents to | | | the fluoroscopy suite for fluoroscopically-guided bilateral L5-S1 | | | transforaminal epidural steroid injections as part of conservative | | | management for chronic pain with lumbar radiculopathy and | | | degenerative disk disease. After informed consent was obtained, the | | | patient, the patient lay in the prone position on the fluoroscopy | | | table. The areas were identified under fluoroscopic guidance. | | | The areas were prepped and draped in sterile fashion. A 25-gauge | | | 1-1/2 inch needle was inserted into each region and approximately 3 | | | mL of buffered 1% lidocaine was infused. Then a 22-gauge spinal | | | needle was inserted into the posterior superior transforaminal space | | | bilaterally and advanced into the epidural space under fluoroscopic | | | guidance. Confirmation into the epidural space was obtained with | | | infusion of approximately 1 mL of Isovue contrast which showed | | | epidural flow as well as nerve sheath flow. Then, a combination of | | | 2 mL of 1% lidocaine and 2 mL of 6 mg/mL Celestone was infused and | | | divided between two sides. The patient tolerated the procedure well | | | without complications. Pre- and post-procedure blood pressures | | | were stable. The patient was given verbal as well as written | | | followup instructions and the patient reported no significant change | | | in pain symptoms status post procedure. Prior to the start | | | of the procedure, the following were performed and verified, | | | including correct patient identify, correct site/side marked and | | | visible, agreement on the procedure to be done, correct patient | | | positioning and an accurate procedure consent form. Any safety | | | precautions based on clinical history and/or medication use have | | | been addressed. I personally performed the procedure. | | | Dictated Date/Time: 11/15/2012 18:44 | | | Transcribed Date/Time: 11/16/2012 02:58 Gravel Wheeler: | | | <<Signature on File>> | | | Armand Gonzales | | | MD Shan11/16/12 1627 <Electronically signed by Armand Gonzales | | | Shan RAMIREZ> Armand Torrez MD 11/15/12 5484 | | | Gravel Wheeler: Mahogany Xzuaxvruloctw71/31/13 0258 | | | | | + + + + + + + + | Performing | Address | City/State/Zipcode | Phone Number | | Organization | | | | + + + + + | [place] [place] | [address] | [place] | [phone] | | [facility] | | [address] | | | - IMAGING | | | | + + + + + documented in this encounter Visit Diagnoses Not on filedocumented in this encounter
--- OUTSIDE RECORDS SUMMARY | ~2019-08-12 | XMS | Encounter Summary ---
Demographics + + + | Address | [address] | | | [place] [address] | + + + | Home Phone | | + + + | Preferred Language | Unknown | + + + | Marital Status | | + + + | Jehovah'S Witness Affiliation | 1073 | + + + | Race | Unknown | + + + | Ethnic Group | Unknown | + + + Author + + + | Author | [facility] | | | and [place] | + + + | Organization | [facility] | | | [...] [place] | | | | | [address] | | + + + + + | Jesus Chanel | KARYN | [address] | | | | | [place] [address] | | + + + + + Care Team Providers + +------+ + | Care Chuck Splitter Name | Role | Phone | + +------+ + | Geraldo Montano MD | PCP | | + +------+ + Encounter Details +--------+ + + + + | Date | Type | Department | Care Team | Description | +--------+ + + + + | 07/21/ | Community | [facility] EPICCARE LINK | Lv Fernandez, | | | 2015 | Orders | [place] [address] | DO [address] | | | | | [place], [place] | [place], [place] | | | | | [address] | [address] | | | | | [phone] | | | +--------+ + + + [...] | | 2019 | Visit | | TEST FIXTURE ASSEMBLER [address] | | | | | | [address] [facility] [address] | | | | | | [place] [address] | | | | | | [phone] | | | | | | | | +--------+---------+ + + + documented as of this encounter Visit Diagnoses Not on filedocumented in this encounter"
--- OUTSIDE RECORDS SUMMARY | ~2019-08-12 | XMS | Encounter Summary ---
Demographics + + + | Address | [address] | | | [place] [address] | + + + | Home Phone | | + + + | Preferred Language | Unknown | + + + | Marital Status | | + + + | Sabianism Affiliation | 1073 | + + + | Race | Unknown | + + + | Ethnic Group | Unknown | + + + Author + + + | Author | [facility] | | | and [place] | + + + | Organization | [facility] | | | [...] [place] | | | | | [address] | | + + + + + | Jesus Chanel | KARYN | [address] | | | | | [place] [address] | | + + + + + Care Team Providers + +------+ + | Care Aviation Technical Systems Specialist Name | Role | Phone | + +------+ + | Geraldo Montano MD | PCP | | + +------+ + Encounter Details +--------+ + + + + | Date | Type | Department | Care Team | Description | +--------+ + + + + | 05/23/ | Orders Only | [facility] [place] | Josue Vazquez | Diarrhea, | | 2020 | | GASTROENTEROLOGY | MD [address] | unspecified type | | | | [address] [place] | [address] [place] | (Primary Dx); H/O | | | | [address] [place], [place] | [place] [address] | failed conscious | | | | [address] | [phone] | sedation; | | | | [phone] | | Generalized | | | | [...] encounter | +--------+ + + + + Social [...] + + documented as of this encounter Progress Notes Jennifer Mullins RN - 05/23/2019 8:30 AM PSTCT scan was denied Dr. Vazquez ordered; he noted to proceed with colonoscopy as planned, if negative then resubmit CT. Electronically s igned by Jennifer Mullins RN at 05/31/2019 8:40 AM PSTJennifer Mullins RN - 2019 8:30 AM PSTScheduled pt for egd/colon with prop sedation (allergy to opioid anaglesic/ failed conscious sedation) on Wed06/21/[address] Vazquez; standard prep reviewed: low fiber diet Wed/Wed before procedure; Tue follow a clear liquid day before with bowel pre p at 4pm/8pm or 4pm until complete; Medications (hold NSAIDs 3days prio), surg/med hx, and a llergies were reviewed; rx to [facility] pharmacy; info given to pt; completed case request ord er, notes to MA. documented in th is encounter Plan of Treatment +--------+---------+ + + + | Date | Type | Specialty | Care Team | Description | +--------+---------+ + + + | 08/13/ | Office | Neurosurgery | João Hill, | | 2019 | Visit | | EXERCISE PHYSIOLOGIST CERTIFIED [address] | [address] | | | | | | [place] [address] | | | | | | [phone] | | | | | | | | +--------+---------+ + + + documented as of this encounter Visit Diagnoses + + | Diagnosis | + + | Diarrhea, unspecified type - Primary | + + | H/O failed conscious sedation Personal history of failed moderate sedation | + + | Generalized abdominal pain Abdominal pain, generalized | + + | Unintentional weight loss Loss of weight | + + | Allergy to opioid analgesic | + + | Failed conscious sedation during procedure, subsequent encounter | + + documented in this encounter"
--- OUTSIDE RECORDS SUMMARY | ~2019-08-12 | XMS | Encounter Summary ---
Demographics + + + | Address | [address] | | | [place] [address] | + + + | Home Phone | | + + + | Preferred Language | Unknown | + + + | Marital Status | | + + + | Caodaism Affiliation | 1073 | + + + | Race | Unknown | + + + | Ethnic Group | Unknown | + + + Author + + + | Author | [facility] | | | and [place] | + + + | Organization | [facility] | | | [...] [place] | | | | | [address] | | + + + + + | Jesus Chanel | ECON | [address] | | | | | [place] [address] | | + + + + + Care Team Providers + +------+ + | Care Barking Machine Feeder Name | Role | Phone | + +------+ + PCP | Unavailable | + +------+ + Encounter Details +--------+ + + + + | Date | Type | Department | Care Team | Description | +--------+ + + + + | 04/01/ | Hospital | [facility] | | | | 1999 | Encounter | MED CTR XRAY [address] | | | | | | [address] [place] | | | | | | [place] [address] | | | | | | [phone] | | | +--------+ + + + [...] | | | | | [place] [address] | | | | | | [phone] | | | | | | | | +--------+---------+ + + + documented as of this encounter Visit Diagnoses Not on filedocumented in this encounter"
--- OUTSIDE RECORDS SUMMARY | ~2019-08-12 | XMS | Encounter Summary ---
Demographics + + + | Address | [address] | | | [place] [address] | + + + | Home Phone [...] [place] | | | | | [address] | | + + + + + | Jesus Chanel | ECON | [address] | | | | | [place] [address] | | + + + + + Care Team Providers + +------+ + | Care Faro Dealer Name | Role | Phone | + +------+ + | Geraldo Montano MD | PCP | | + +------+ + Reason for Visit + + + | Reason | Comments | + + + | Imaging Only | Needs to be scheduled | + + + Encounter Details +--------+ + + + + | Date | Type | Department | Care Team | Description | +--------+ + + + + | 02/11/ | Telephone | [facility] | Faustino Aquino, | Imaging Only (Needs | | 2018 | | PHYSIATRY [address] | MD [address] | to be scheduled) | | | | [address] | [place] | | | | | [place] | [address] | | | | | [address] | | | | | | [phone] | | | +--------+ + + + [...] | | | | | [place] [address] | | | | | | [phone] | | | | | | | | +--------+---------+ + + + documented as of this encounter Visit Diagnoses Not on filedocumented in this encounter"
--- OUTSIDE RECORDS SUMMARY | ~2019-08-12 | XMS | Encounter Summary ---
Demographics + + + | Address | [address] | | | [place] [address] | + + + | Home Phone [...] [place] | | | | | [address] | | + + + + + | Jesus Chanel | ECON | [address] | | | | | [place] [address] | | + + + + + Care Team Providers + +------+ + | Care Movement Assembly Final Inspector Name | Role | Phone | + +------+ + PCP | Unavailable | + +------+ + Encounter Details +--------+ + + + + | Date | Type | Department | Care Team | Description | +--------+ + + + + | 02/13/ | Hospital | [facility] | | | | 2002 | Encounter | MED CTR XRAY [address] | | | | | | [address] | | | | | | [place] [address] | | | | | | [phone] | | | +--------+ + + + [...] | | | | | [place] [address] | | | | | | [phone] | | | | | | | | +--------+---------+ + + + documented as of this encounter Visit Diagnoses Not on filedocumented in this encounter"
--- OUTSIDE RECORDS SUMMARY | ~2019-08-12 | XMS | Clinical Summary ---
Demographics + + + | Address | [address] | | | [place] [address] | + + + | Home Phone | | + + + | Preferred Language | Unknown | + + + | Marital Status | | + + + | Restorationist Affiliation | 1073 | + + + | Race | Unknown | + + + | Ethnic Group | Unknown | + + + Author + + + | Author | [facility] | | | and [place] | + + + | Organization | [facility] | | | [...] [place] | | | | | [address] | | + + + + + | Serjio Chanel | ECON | [address] | | | | | [place] [address] | | + + + + + Care Team Providers + +------+ + | Care Plastics Production Machine Operator Name | Role | Phone [...] automatically from request for surgery | | [id number] | + + + + + | Generalized abdominal pain | 06/13/2019 | + + + + + | Overview: Added automatically from request for surgery | | [id number] | + + + + + | Unintentional weight loss | 06/13/2019 | + + + + + | Overview: Added automatically from request for surgery | | [id number] | + + + + + | Allergy to opioid analgesic | 06/13/2019 | + + + + + | Overview: Added automatically from request for surgery | | [id number] | + + + + + | Failed conscious sedation during procedure, subsequent encounter | 06/13/2019 | + + + + + | Overview: Added automatically from request for surgery | | [id number] | + + + + + | [...] + +---+ + + | Overview: MARK [id number] Decision | + + + +---+ | NICOTINE ADDICTION | | + +---+ | Myalgia and myositis | | + +---+ + + | Overview: MARK [id number] DecisionLast Assessment & Plan: | | Chronic [...] (Orders) | | 2020 | | | REGULATION SUPERVISOR | | +--------+ + + + + [...] | Imaging | 2019 | | | REGULATION SUPERVISOR | | +--------+ + + + + [...] Other | | 2019 | | | REGULATION SUPERVISOR | | +--------+ + + + + [...] | | 2019 | Encounter | | REGULATION SUPERVISOR | | +--------+ + + + + | 05/23/ | Office | Neurosurgery | João Hill, | DDD (degenerative | 2019 | Visit | | REGULATION SUPERVISOR | disc disease), | | | | [...] | | 2019 | Visit | | REGULATION SUPERVISOR [address] | [address] | | | | | | [place] [address] | | | | | | [phone] | | | | | | | [...] S?MRN: | | | | | | [id number] | | | [id number] | | | riteri | | | [...] | | | St. | | | [place] | | | y | | | [...] | | | St. | | | [place] | | | y H. | | [...] | | | [id number] | | | [id number] | | | [id number] | | | [...] S?MRN: | | | | | | [id number] | | | [id number] | | | riteri | | | [...] | | | St. | | | [place] | | | y | | | [...] | | | St. | | | [place] | | | y H. | | [...] | | | St. | | | Kayt | | | M.C. | | | [...] [address] | [place] | [phone] | | [facility] | | [address] | | | - LABORATORY | | [...] Alignment: There are 5 | | | vnf-amq-[id number] lumbar vertebral type bodies. Vertebrae: Normal. | [...] FINDINGS: | | Alignment: There are 5 rah-irt-uobqnjh lumbar vertebral type bodies. | | | [...] +--------+ +---------+--------+ | MEDICARE | MEDICA | [id number] | 11/18/19 | [phone] | | Medica | | | RE | | 17-Pre | 5 | | re | | | PART A | | sent | | | | | | AND B | | | | | | + +--------+ +--------+ +---------+--------+ | BCBS | BCBS | [id number] | 09/18/19 | | | PPO | | | OOS | 2 | 18-Pre | | | | | | PPO | | sent | | | | + +--------+ +--------+ +---------+--------+ | MEDICARE | MEDICA | [id number] | 11/18/19 | [phone] | | Medica | | | RE | | 17-Pre | 5 | | re | | | PART A | | sent | | | | | | AND B | | | | | | + +--------+ +--------+ +---------+--------+ | BCBS | BCBS | [id number] | 09/18/19 | | | PPO | [...] | 1951 | [phone] | [place] [address] | | | ig[place]ia | | | 0 (Home) | | | | | | | [phone] | | | | | | | 2 (Work) | | + +--------+ +--------+ + + | Yamileth Chanel | Person | Self | [birth year] | [address] | | | al/Fam | | 1951 | [phone] | [place] [address] | | | [place] | | | 0 (Home) | | + +--------+ +--------+ + + Advance Directives + + + + + | Type | Date Recorded | Patient | Explanation | | | | Junior Financial Analyst | | + + + + + | Power of | | | | | Can Intake Worker | | | | + + + + + | Advance | 07/20/2015 12:14 | | | | Directive | AM | | | + + + + +
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
--- OUTSIDE RECORDS SUMMARY | ~2019-08-12 | XMS | Encounter Summary ---
Demographics + + + | Address | [address] | | | [place] [address] | + + + | Home Phone | | + + + | Preferred Language | Unknown | + + + | Marital Status | | + + + | Christianity Affiliation | 1073 | + + + | Race | Unknown | + + + | Ethnic Group | Unknown | + + + Author + + + | Author | [facility] | | | and [place] | + + + | Organization | [facility] | | | [...] [place] | | | | | [address] | | + + + + + | Jesus Chanel | KARYN | [address] | | | | | [place] [address] | | + + + + + Care Team Providers + +------+ + | Care Hogshead Press Operator Name | Role | Phone | + +------+ + | Geraldo Montano MD | PCP | | + +------+ + Encounter Details +--------+ + + + + | Date | Type | Department | Care Team | Description | +--------+ + + + + | 01/28/ | Abstract | [facility] | Provider, | | | 2017 | | PHYSIATRY [address] | [address] | | | | | [address] | [place] | | | | | [place] | [place] [address] | | | | | [address] | | | | | | [phone] | | | +--------+ + + + [...] B | | | | | | [facility] [address] | | | | | | [phone] | | | | | | | | +--------+---------+ + + + documented as of this encounter Visit Diagnoses Not on filedocumented in this encounter"
--- OUTSIDE RECORDS SUMMARY | ~2019-08-12 | XMS | Encounter Summary ---
Demographics + + + | Address | [address] | | | [place] [address] | + + + | Home Phone | | + + + | Preferred Language | Unknown | + + + | Marital Status | | + + + | Muslim Affiliation | 1073 | + + + | Race | Unknown | + + + | Ethnic Group | Unknown | + + + Author + + + | Author | [facility] | | | and [place] | + + + | Organization | [facility] | | | and [...] [place] | | | | | [address] | | + + + + + | Jesus Chanel | ECON | [address] | | | | | [place] [address] | | + + + + + Care Team Providers + +------+ + | Care Applied Behavior Science Specialist Name | Role | Phone | [...] + + | 02/11/ | Telephone | [facility] | Faustino Aquino, | Imaging Only (Needs | | 2018 | | PHYSIATRY [address] | MD [address] | to be scheduled) | | | | [address] | [place] | | | | | [place] | [address] | | | | | [address] | | | | | | [phone] | | | +--------+ + + + [...] | | | | | [place] [address] | | | | | | [phone] | | | | | | | | +--------+---------+ + + + documented as of this encounter Visit Diagnoses Not on filedocumented in this encounter"
--- OUTSIDE RECORDS SUMMARY | ~2019-08-12 | XMS | Encounter Summary ---
Demographics + + + | Address | [address] | | | [place] [address] | + + + | Home Phone | | + + + | Preferred Language | Unknown | + + + | Marital Status | | + + + | Adventist Affiliation | 1073 | + + + [...] [place] | | | | | [address] | | + + + + + | Jesus Chanel | KARYN | [address] | | | | | [place] [address] | | + + + + + Care Team Providers + +------+ + | Care Import Customer Service Manager Name | Role | Phone | [...] + + | 06/14/ | Telephone | [facility] | João Hill, | Other | | 2020 | | NEUROSURGERY [address] | DESIGN TRANSFERRER [address] | | | | | [address] | | | | | [place], [place] | [place] [address] | | | | | [address] | [phone] | | | | | [phone] | | | +--------+ + + + [...] B | | | | | | [place] [address] | | | | | | [phone] | | | | | | | | +--------+---------+ + + + documented as of this encounter Visit Diagnoses Not on filedocumented in this encounter"
--- OUTSIDE RECORDS SUMMARY | ~2019-08-12 | XMS | Encounter Summary ---
Demographics + + + | Address | [address] | | | [place] [address] | + + + | Home Phone [...] [place] | | | | | [address] | | + + + + + | Jesus Chanel | KARYN | [address] | | | | | [place] [address] | | + + + + + Care Team Providers + +------+ + | Care Office Specialist Name | Role | Phone | [...] | | | [address] [place] | [place] [address] | | | | | [place] [address] | | | | | | [phone] | | | +--------+ + + + [...] B | | | | | | [place] [address] | | | | | | [phone] | | | | | | | [...]
--- OUTSIDE RECORDS SUMMARY | ~2019-08-12 | XMS | Encounter Summary ---
Demographics + + + | Address | [address] | | | [place] [address] | + + + | Home Phone | | + + + | Preferred Language | Unknown | + + + | Marital Status | | + + + | Tenriism Affiliation | 1073 | + + + | Race | Unknown | + + + | Ethnic Group | Unknown | + + + Author + + + | Author | [facility] | | | and [place] | + + + | Organization | [facility] | | | [...] [place] | | | | | [address] | | + + + + + | Jesus Chanel | ECON | [address] | | | | | [place] [address] | | + + + + + Care Team Providers + +------+ + | Care Real Time Operator Name | Role | Phone | + +------+ + | Vero Montano MD | PCP | | + +------+ + Reason for Visit + + + | Reason | Comments | + + + | Back Pain | | + + + | Numbness | | + + + Encounter Details +--------+ + + + + | Date | Type | Department | Care Team | Description | +--------+ + + + + | 06/11/ | Emergency | [facility] | Rex Choi, | Acute exacerbation | | 2019 | | [facility] EM[facility]Y | MD [address] | of chronic low back | | | | CENTER [address] | [facility] [place] | pain (Primary Dx); | | | | [place], [place] | [place], [place] [address] | Paresthesias | | | | [address] | [phone] | | | | | [phone] | | | +--------+ + + + [...] + + + | Blood Pressure | 110/65 | 06/11/2019 2:14 AM | | | | | PST | | + + + + + | Pulse | 94 | 06/11/2019 1:48 AM | | | | | PST | | + + + + + | Temperature | 36.2 C (97.1 F) | 06/11/2019 1:48 AM | | | | | PST | | + + + + + | Respiratory Rate | 18 | 06/11/2019 1:48 AM | | | | | PST | | + + + + + | Oxygen Saturation | 95% | 06/11/2019 1:48 AM | | | | | PST [...] documented in this encounter Discharge Instructions Instructions Rex Choi MD - 06/11/2019Your blood sugar is 131. That is mildly maxim vated. The elevation can be from the steroids you are on. Your primary care doctor can rec heck your blood sugar. Nichols for pain, you will need to get any additional pain medicine from your primary care do ctor Gabapentin, this medicine will need to be adjusted to control your symptoms. Sometimes 900 mg 3 times a day is needed. Follow-up with primary care Follow-up with Dr. Miles LoveThe following attachments cannot be sent through Care Everywhere.Paraesthesias ( Albanian)Back Pain (Acute or Chronic) (Albanian)documented in this encounter Medications at Time of [...] tablets by | 20 | 0 | 06/11/19 | | | HYDROcodone-acetamin | mouth every 6 hours | tablet | | 20 | 0 | | ophen (NORCO) | as needed for Pain. | | | | | | 7.5-325 [...] | | 2019 | Visit | | CHEMISTRY TECHNOLOGIST [address] | | | | | | [address] | | | | | | [place] [address] | | | | | | [phone] | | | | | | | | +--------+---------+ + + + + +------+--------+ + + | Name | Type | Priori | Associated Diagnoses | Date/Time | | | | ty | | | + +------+--------+ + + | ED INFORMATION | GUIDO | Routin | | 06/11/2019 1:38 AM | | EXCHANGE | | e | | PST | + +------+--------+ + + documented as of this encounter Procedures + +--------+ + + + | Procedure Name | Priori | Date/Time | Associated Diagnosis | Comments | | | ty | | | | + +--------+ + + + | POC GLUCOSE | Routin | [...] | PST | | | + +--------+ + + [...] | | | FICATI | | | ON?02/ | | | 23/202 | | | 0 | | | 01:37? | | | CHANEL, | | | | | | MARICARMEN | | | H | | | S?MRN: | | | | | | [id number] | | | [id number] | | | riteri | | | [...] | | | St. | | | [place] | | | y | | | [...] | | | St. | | | [place] | | | y H. | | [...] m | +---+--------+ documented in this encounter Results POC Glucose (06/11/2019 2:31 AM PST) + +---------+ + + + | Component | Value | Ref Range | Performed | Pathologist | | | | | At | Signature | + +---------+ + + + | Glucose, | 131 (H) | 70 - 109 mg/dL | [facility] | | | POC | | | [facility] | | | | | | MED[facility] [...] ST. | [address] | [place] | [phone] | | [facility] | | [address] | | | - LABORATORY | | | | + + + + + documented in this encounter Visit Diagnoses + + | Diagnosis | + + | Acute exacerbation of chronic low back pain - Primary | + + | Paresthesias Disturbance of skin sensation | + + documented in this encounter Administered Medications + +--------+ +---------+------+------+ | Medication Order | MAR | Action | Dose | Rate | Site | | | Action | Date | | | | + +--------+ +---------+------+------+ | HYDROcodone-acetaminophen | Given | 06/11/19 | 2 | | | | (NORCO) 5-325 mg per tablet 2 | | 20 2:24 | tablets | | | | tablet 2 tablet, Oral, ONCE, Sun | | AM PST | | | | | 06/11/19 at 0225, For 1 dose | | | | | | + +--------+ +---------+------+------+ +---+---+ | | | +---+---+ documented in this encounter"
--- OUTSIDE RECORDS SUMMARY | ~2019-08-12 | XMS | Encounter Summary ---
Demographics + + + | Address | [address] | | | [place] [address] | + + + | Home Phone | | + + + | Preferred Language | Unknown | + + + | Marital Status | | + + + | Bahai Affiliation | 1073 | + + + | Race | Unknown | + + + | Ethnic Group | Unknown | + + + Author + + + | Author | [facility] | | | and [place] | + + + | Organization | [facility] | | | [...] [place] | | | | | [address] | | + + + + + | Jesus Chanel | ECON | [address] | | | | | [place] [address] | | + + + + + Care Team Providers + +------+ + | Care Pulverizer Operator Name | Role | Phone | + +------+ + PCP | Unavailable | + +------+ + Encounter Details +--------+ + + + + | Date | Type | Department | Care Team | Description | +--------+ + + + + | 03/30/ | Hospital | [facility] | | | | 2000 | Encounter | MED CTR XRAY [address] | | | | | [address] [place] | | | | | | [place] [address] | | | | | | [phone] | | | +--------+ + + + [...] | | | | | [place] [address] | | | | | | [phone] | | | | | | | | +--------+---------+ + + + documented as of this encounter Visit Diagnoses Not on filedocumented in this encounter"
--- OUTSIDE RECORDS SUMMARY | ~2019-08-12 | XMS | Encounter Summary ---
Demographics + + + | Address | [address] | | | [place] [address] | + + + | Home Phone | | + + + | Preferred Language | Unknown | + + + | Marital Status | | + + + | Latter Day Affiliation | 1073 | + + + [...] [place] | | | | | [address] | | + + + + + | Jesus Chanel | KARYN | [address] | | | | | [place] [address] | | + + + + + Care Team Providers + +------+ + | Care Saw Runner Name | Role | Phone | + +------+ + | Gissel Zhong MD | PCP | | + +------+ + Encounter Details +--------+ + + + + | Date | Type | Department | Care Team | Description | +--------+ + + + + | 05/04/ | Hospital | [facility] | Vance Diaz MD | | | 2012 | Encounter | MED CTR MP INTRA OP | [address], [place] | | | | | [address] | [address] [place], [place] | | | | | [place], [place] | [address] | | | | | [address] | | | | | | [phone] | | | +--------+ + + + [...] | | 2019 | Visit | | AUTOMOBILE MECHANIC MOTOR [address] | | | | | | [address] | | | | | | [place] [address] | | | | | | [phone] | | | | | | | [...] [address] | [place] | [phone] | | [facility] | | [address] | | | - LABORATORY | | | | + + + + + | [facility] | [address] | [place], [place] | | | [facility] | | [address] | | | - LABORATORY | | [...] By: | [facility] | | | [facility] | | | [facility] | | | - LABORATORY | + + + + + + + + | Performing | Address | City/State/Zipcode | Phone Number | | Organization | | | | + + + + + | [facility] | [address] | [place] | [phone] | | [facility] | | [address] | | | - LABORATORY | | | | + + + + + | [facility] | [address] | [place] | | | [facility] | | [address] | | | - LABORATORY | | | | + + + + + documented in this encounter Visit Diagnoses Not on filedocumented in this encounter"
--- OUTSIDE RECORDS SUMMARY | ~2019-08-12 | XMS | Encounter Summary ---
Demographics + + + | Address | [address] | | | [place] [address] | + + + | Home Phone | | + + + | Preferred Language | Unknown | + + + | Marital Status | | + + + | Lutheran Affiliation | 1073 | + + + | Race | Unknown | + + + | Ethnic Group | Unknown | + + + Author + + + | Author | [facility] | | | and [place] | + + + | Organization | [facility] | | [...] [place] | | | | | [address] | | + + + + + | Jesus Chanel | ECON | [address] | | | | | [place] [address] | | + + + + + Care Team Providers + +------+ + | Care Choir Director Name | Role | Phone | + +------+ + PCP | Unavailable | + +------+ + Encounter Details +--------+ + + + + | Date | Type | Department | Care Team | Description | +--------+ + + + + | 05/09/ | Hospital | [facility] | | | | 2000 | Encounter | MED CTR EMERGENCY | | | | | | CENTER [address] | | | | | | [place] | | | | | | [address] | | | | | | [phone] | | | +--------+ + + + [...] B | | | | | | [place] [address] | | | | | | [phone] | | | | | | | | +--------+---------+ + + + documented as of this encounter Visit Diagnoses Not on filedocumented in this encounter"
--- OUTSIDE RECORDS SUMMARY | ~2019-08-12 | XMS | Encounter Summary ---
Demographics + + + | Address | [address] | | | [place] [address] | + + + | Home Phone | | + + + | Preferred Language | Unknown | + + + | Marital Status | | + + + | Episcopalian Affiliation | 1073 | + + + [...] [place] | | | | | [address] | | + + + + + | Jesus Chanel | KARYN | [address] | | | | | [place] [address] | | + + + + + Care Team Providers + +------+ + | Care Ore Sampler Name | Role | Phone | + +------+ + | Gissel Zhong MD | PCP | | + +------+ + Encounter Details +--------+ + + + + | Date | Type | Department | Care Team | Description | +--------+ + + + + | 04/27/ | Abstract | [facility] [place] | [facility], | | | 2012 | | GASTROENTEROLOGY | ANA [address] | | | | | [address] [place] | [place] [place] [address] | | | | | [address] [place], [place] | [place], [place] | | | | | [address] | [address] | | | | | [phone] | | | +--------+ + + + [...] | | 2019 | Visit | | MARINE SERVICES TECHNICIAN [address] | | | | | [address] | | | | | | [place] [address] | | | | | | [phone] | | | | | | | | +--------+---------+ + + + documented as of this encounter Visit Diagnoses Not on filedocumented in this encounter"
--- OUTSIDE RECORDS SUMMARY | ~2019-08-12 | XMS | Encounter Summary ---
Demographics + + + | Address | [address] | | | [place] [address] | + + + | Home Phone | | + + + | Preferred Language | Unknown | + + + | Marital Status | | + + + | Shinto Affiliation | 1073 | + + + | Race | Unknown | + + + | Ethnic Group | Unknown | + + + Author + + + | Author | [facility] | | | and [place] | + + + | Organization | [facility] | | [...] [place] | | | | | [address] | | + + + + + | Jesus Chanel | KARYN | [address] | | | | | [place] [address] | | + + + + + Care Team Providers + +------+ + | Care Concrete Gun Operator Name | Role | Phone | [...] | | [address] | [place] | | | | | [place] | [place] [address] | | | | | [address] | | | | | | [phone] | | | +--------+ + + + [...] B | | | | | | [facility] [place] [address] | | | | | | [phone] | | | | | | | | +--------+---------+ + + + documented as of this encounter Visit Diagnoses Not on filedocumented in this encounter"
--- OUTSIDE RECORDS SUMMARY | ~2019-08-12 | XMS | Encounter Summary ---
Demographics + + + | Address | [address] | | | [place] [address] | + + + | Home Phone | | + + + | Preferred Language | Unknown | + + + | Marital Status | | + + + | Taoism Affiliation | [id number] | + + + | Race | Unknown | + + + | Ethnic Group | Unknown | + + + Author + + + | Author | [facility] | | | and [place] | + + + | Organization | [facility] | | | and [place] | + + + | Address | Unknown | + + + | Phone | Unavailable | + + + Support + + + + + | Name | Relationship | Address | Phone | + + + + + | Dennis Almazan | KARYN | [address] | | | | | [place] | | | | | [address] | | + + + + + | Jesus Chanel | ECON | [address] | | | | | [place] [address] | | + + + + + Care Team Providers + +------+ + | Care Cement Gun Operator Name | Role | Phone [...] + + | Closed | Specialty | Orthopedic | Diagnoses | Aquino, | Jay, | | | Services | Surgery | Bilateral | Faustino Alejandre MD | Thanh Stack MD | | | Required | | carpal | [address] | | | | | tunnel | [address] | [place], | | | | | syndrome | [place], | [place] [address] | | | | | Numbness and | [place] [address] | Phone: | | | | | tingling in | Phone: | [phone] | | | | | both hands | [phone] | Fax: | | | | | Hand | Fax: | [phone] | | | | | weakness | [phone] | | +--------+ + + + + + Reason for Visit + + + | Reason | Comments | + + + | Procedure | BUE NCS/EMG | + + + Evaluate & Treat (Routine) +--------+ + + + + + | Status | Reason | Specialty | Diagnoses / | Referred By | Referred To | | | | | Procedures | Contact | Contact | +--------+ + + + + + | Closed | Specialty | Physical | Diagnoses | Aquino, | Faustino Aquino | | | Services | Medicine and | Neurogenic | Faustino Sindy Alejandre MD | Sindy Alejandre MD [address] | | | Required | Rehabilitatio | bowel Full | [address] | | | | n | incontinence | [address] | [place], | | | | | of feces | [place], | [place] [address] | | | | | Chronic | [place] [address] | Phone: | | | | | midline low | Phone: | [phone] | | | | | back pain | [phone] | Fax: | | | | | with | Fax: | [phone] | | | | | bilateral | [phone] | | | | | | sciatica | | | | | | | Cervicalgia | | | | | | | Hand | | | | | | | weakness | | | | | | | Numbness and | | | | | | | tingling in | | | | | | | both hands | | | | | | | [...] | | | | | | | IA MOTOR | | | | | | | &/SENS 13/> | | | | | | | NRV CNDJ | | | | | | | PRECONF | | | | | | | ELTRODE LIMB | | | | | | | IA NEEDLE | | | | | | | EMG EA | | | | | | | EXTREMITY | | | | | | | W/PARASPINL | | | | | | | AREA LIMITED | | | | | | | IA NEEDLE | | | | | | | EMG EA | | | | | | | EXTREMTY | | | | | | | W/PARASPINL | | | | | | | AREA | | | | | | | COMPLETE IA | | | | | | | OFFICE | | | | | | | OUTPATIENT | | | | | | | VISIT 40 | | | | | | | MINUTES IA | | | | | | | TOBACCO USE | | | | | | | CESSATION | | | | | | | INTERMEDIATE | | | | | | | 3-10 | | | | | | | MINUTES DOS | | | | | | | 03/15/18 | | | +--------+ + + + + + Encounter Details +--------+---------+ + + + | Date | Type | Department | Care Team | Description | +--------+---------+ + + + | 03/15/ | Office | [facility] | Dominic Aquinoesthela Alejandre, | Bilateral carpal | | 2018 | Visit | PHYSIATRY [address] | MD [address] | tunnel syndrome | | | | [address] | [place], [place] | (Primary Dx); | | | | [place], [place] | [address] | Numbness and | | | | [address] | | tingling in both | | | | [phone] | | hands; Hand | | | | | | weakness; Cervical | | | | | | radiculopathy; | | | | | | Cervicalgia; Tobacco | | | | | | dependence; Spinal | | | | | | stenosis of lumbar | | | | | | region with | | | | | | neurogenic | | | | | | claudication; | | | | | | Chronic bilateral | | | | | | low back pain with | | | | | | bilateral sciatica | +--------+---------+ + + + Social History [...] + + + | Blood Pressure | 111/64 | 03/15/2018 8:26 AM | | | | | PST | | + + + + + | Pulse | 70 | 03/15/2018 8:26 AM | | | | | PST [...] + + + + | Weight | 76.7 kg (169 lb) | 03/15/2018 8:26 AM | | | | | PST | | + + + + + | Height | 154.9 cm (5' 0.98") | 03/15/2018 8:26 AM | | | | | PST | | + + + + + | Body Mass Index | 31.95 | 03/15/2018 8:26 AM | | | | | PST | | + + + + + documented in this encounter Patient Instructions Patient Instructions Faustino Aquino MD - 03/15/2018 8:30 AM PSTPurchase and wear (night time) carpal tunnel wrist splints. Wear them at night, only at night, every night, never du ring the day. Make sure they don't fit too tight, they only need to keep the wrists from be nding during sleep. Laboratory tests have been requested. Please go to the lab to complete your laboratory iva ting. You will need to fast for 12 hours prior to lab testing. You will need to stay in [facility] lab for 2 hours to complete your test. The results of your laboratory testing will likely be reviewed by phone, or at next visit. It is recommended that you stop smoking as reviewed during your appointment. If you have persisting neck and arm symptoms after recovering from treatment for carpal siva kellee syndrome, return to the clinic to discuss treatment options. Today you decline surgical treatment options for your neck and your back. It is recommended that you work toward weight loss, which may help your back. It is recommended that you participate in physical therapy for your neck and back. Return to the clinic in 2 months to review management of your neck and back symptoms with Ariella Sanchez PA-C. documented in this encounter Progress Notes Faustino Aquino MD - 03/15/2018 8:30 AM PSTFormatting of this note might be different fro m the original. [facility] Physical Medicine & Rehabilitation [address] [place] [address], [address] [place] [address] Test Date: 03/15/2018 Patient Name: Karla Chanel : 1950 Physician: Faustino Aquino MD (Jr.) MR #: [id number] Sex: Female Referring Physician: Geraldo Montano MD HISTORY: Yamileth Chanel has chronic neck pain present for decades. She reports pain, numbness, weakness in both upper extremities present for 5+ years. She reports being diagnosed with carpal tunnel syndrome in the distant past, but she didn't do anything to treat it at the [facility]. She denies history of diabetes. She reports having intermittent hand numbness in both hands. The numbness occurs daily up to several times per day. Episodes of numbness last mi nutes, but not hours. She reports that hand numbness can wake her from sleep. She reports that numbness involves the entire hand bilaterally, but that the numbness is more prevalent in the right hand compared to the left. She reports weakness in both hands, which she descr ibes as a loss of corrective therapy aide strength. She has never tried using carpal tunnel wrist splints. Kaushik stack has completed cervical MRI. She returns to the clinic for nerve study to evaluate for car pal tunnel syndrome versus cervical radiculopathy versus both. She reports that she has tried to stop smoking in the past and failed. She reports that kaushik stack can't quit. She reports persisting bilateral back pain with symptoms traveling into both legs. Her back and leg symptoms are constant. She reports chronic episodes of bowel incont inence, present for years. She has completed lumbar MRI. She refuses surgical treatment of consult for her neck and back. She reports that she won't have neck or back surgery. Toda y we reviewed the risk of permanent pain, numbness, weakness, disability that can occur as t he result of not treating her neck and/or back pathology. PHYSICAL EXAM: She is in no acute distress. She is alert and oriented. She appears older than stated age . She smells like she has been around cigarette smoke. Her speech is normal. She is able to follow directs. Her cranial nerves are grossly intact. Her coordination is intact in libra th upper extremities with finger to nose testing. Her gait is antalgic but stable. Romberg test is negative. There is no focal muscle atrophy seen in either upper extremity. There was no fasciculations observed in either upper extremity. She has intact sensation in both upper extremities with monofilament testing. She has decreased sensation over the L5 dermat omes in both lower extremities. Reflexes are hyperreflexic 3+ over the biceps and triceps o f both upper extremities. Motor exam demonstrates 4/5 corrective therapy aide strength in both hands. Motor exam demonstrates 5/5 biceps, triceps, wrist dorsiflexion, and finger abduction in both uppe r extremities. Garrett's test remains positive in both upper extremities. There is no clon us at either ankle. Spurling's test is positive bilaterally. Tinel's test is positive over the median nerves at both wrists. Phalen's test is positive bilaterally. Seated straight leg is positive bilaterally. Nerve Conduction Studies Anti Sensory Summary Table Site NR Peak (ms) Norm Peak (ms) O-P Amp (V) Norm O-P Amp Site1 Site2 Delta-0 (ms) Dist (cm) Darren (m/s) Norm Darren (m/s) Left Median Anti Sensory (2nd Digit) Wrist NR <3.6 >10 Wrist 2nd Digit 14.0 >39 Right Median Anti Sensory (2nd Digit) Wrist 5.8 <3.6 7.2 >10 Wrist 2nd Digit 4.3 14.0 33 >39 Left Radial Anti Sensory (Base 1st Digit) Wrist 2.4 <2.7 12.7 Wrist Base 1st Digit 2.1 10.0 48 Right Radial Anti Sensory (Base 1st Digit) Wrist 2.7 <2.7 23.0 Wrist Base 1st Digit 2.1 10.0 48 Right Ulnar Anti Sensory (5th Digit) Wrist 3.0 <3.7 34.0 >15.0 Wrist 5th Digit 2.3 14.0 61 >38 B Elbow 5.6 11.0 B Elbow Wrist 2.6 16.5 63 >47 A Elbow 7.0 8.0 A Elbow B Elbow 1.1 10.0 91 Motor Summary Table Site NR Onset (ms) Norm Onset (ms) O-P Amp (mV) Norm O-P Amp Site1 Site2 Delta-0 (ms) Dist (cm) Darren (m/s) Norm Darren (m/s) Left Median Motor (Abd Poll Brev) Wrist 5.2 <4.2 5.2 >5 Elbow Wrist 4.8 20.5 43 >50 Elbow 10.0 4.5 Axilla Elbow 1.5 7.1 47 Axilla 11.5 2.8 Right Median Motor (Abd Poll Brev) Wrist 5.8 <4.2 5.9 >5 Elbow Wrist 4.9 21.0 43 >50 Elbow 10.7 5.1 Axilla Elbow 1.5 7.0 47 Axilla 12.2 4.7 Right Ulnar Motor (Abd Dig Minimi) Wrist 3.1 <4.2 8.7 >3 B Elbow Wrist 3.3 17.4 53 >53 B Elbow 6.4 7.8 A Elbow B Elbow 1.7 10.0 59 >53 A Elbow 8.1 7.5 Comparison Summary Table Site NR Peak (ms) Norm Peak (ms) P-T Amp (V) Site1 Site2 Delta-P (ms) Norm Delta (ms) Left Median/Radial Dig I Comparison (Digit 1 - 10cm) Median 4.5 <2.9 5.6 Median Radial 2.0 <0.4 Radial 2.5 <2.8 7.3 Right Median/Radial Dig I Comparison (Digit 1 - 10cm) Median 5.0 <2.9 5.0 Median Radial 2.4 <0.4 Radial 2.6 <2.8 7.7 Left Median/Ulnar Dig IV Comparison (Digit 4 - 14cm) Median Wr 5.7 <3.3 3.5 Median Wr Ulnar Wr 2.5 <0.4 Ulnar Wr 3.2 <3.3 6.2 Right Median/Ulnar Dig IV Comparison (Digit 4 - 14cm) Median Wr 11.2 <3.3 2.7 Median Wr Ulnar Wr 8.2 <0.4 Ulnar Wr 3.0 <3.3 42.2 Left Median/Ulnar Palm Comparison (Wrist - 8cm) Median Palm 4.2 <2.5 9.7 Median Palm Ulnar Palm 2.2 <0.3 Ulnar Palm 2.0 <2.5 6.2 Right Median/Ulnar Palm Comparison (Wrist - 8cm) Median Palm 5.1 <2.5 8.3 Median Palm Ulnar Palm 2.9 <0.3 Ulnar Palm 2.2 <2.5 22.2 F Wave Studies NR F-Lat (ms) Lat Norm (ms) L-R F-Lat (ms) L-R Lat Norm Left Median (Mrkrs) (Abd Poll Brev) 29.64 <33 1.05 <2.2 Right Median (Mrkrs) (Abd Poll Brev) 30.69 <33 1.05 <2.2 EMG Side Muscle Nerve Root Ins Act Fibs Psw Amp Dur Poly Recrt Int Pat Comment Right Deltoid Axillary C5-6 Nml Nml Nml Nml Nml Nml Nml Nml Right Biceps Musculocut C5-6 Incr Nml Nml Nml Nml Poly Nml Nml Right Triceps Radial C6-7-8 Nml Nml Nml Nml Nml Nml Nml Nml Right Anconeus Radial C7-8 Nml Nml Nml Nml Nml Nml Nml Nml Right PronatorTeres Median C6-7 Nml Nml Nml Nml Nml Nml Nml Nml Right 1stDorInt Ulnar C8-T1 Nml Nml Nml Nml Nml Nml Nml Nml Right Abd Poll Brev Median C8-T1 Nml Nml Nml Nml Nml Nml Nml Nml Left Deltoid Axillary C5-6 Nml Nml Nml Nml Nml Nml Nml Nml Left Biceps Musculocut C5-6 Nml Nml Nml Nml Nml Nml Nml Nml Left Triceps Radial C6-7-8 Nml Nml Nml Nml Nml Nml Nml Nml Left Anconeus Radial C7-8 Nml Nml Nml Nml Nml Nml Nml Nml Left PronatorTeres Median C6-7 Nml Nml Nml Nml Nml Nml Nml Nml Left 1stDorInt Ulnar C8-T1 Nml Nml Nml Nml Nml Nml Nml Nml Left Abd Poll Brev Median C8-T1 Nml Nml Nml Nml Nml Nml Nml Nml Nerve Conduction Studies Motor Left/Right Comparison Site L Lat (ms) R Lat (ms) L-R Lat (ms) L Amp (mV) R Amp (mV) L-R Amp (%) Site1 Site2 L Ve l (m/s) R Darrne (m/s) L-R Darren (m/s) Median Motor (Abd Poll Brev) Wrist 5.2 5.8 0.6 5.2 5.9 11.9 Elbow Wrist 43 43 0 Elbow 10.0 10.7 0.7 4.5 5.1 11.8 Axilla Elbow 47 47 0 Axilla 11.5 12.2 0.7 2.8 4.7 40.4 Anti Sensory Left/Right Comparison Site L Lat (ms) R Lat (ms) L-R Lat (ms) L Amp (V) R Amp (V) L-R Amp (%) Site1 Site2 L Darren (m/s) R Darren (m/s) L-R Darren (m/s) Radial Anti Sensory (Base 1st Digit) Wrist 2.4 2.7 0.3 12.7 23.0 44.8 Wrist Base 1st Digit 48 48 0 Comparison Left/Right Comparison Site L Lat (ms) R Lat (ms) L-R Lat (ms) L Amp (V) R Amp (V) L-R Amp (%) Median/Radial Dig I Comparison (Digit 1 - 10cm) Median 4.5 5.0 0.5 5.6 5.0 10.7 Radial 2.5 2.6 0.1 7.3 7.7 5.2 Median/Ulnar Dig IV Comparison (Digit 4 - 14cm) Median Wr 5.7 11.2 5.5 3.5 2.7 22.9 Ulnar Wr 3.2 3.0 0.2 6.2 42.2 85.3 Median/Ulnar Palm Comparison (Wrist - 8cm) Median Palm 4.2 5.1 0.9 9.7 8.3 14.4 Ulnar Palm 2.0 2.2 0.2 6.2 22.2 72.1 NCV FINDINGS: Evaluation of the Left median motor and the Right median motor nerves showed prolonged distal onset latency and decreased conduction velocity (Elbow-Wrist). The Left me lex sensory nerve showed no response (Wrist). The Right median sensory nerve showed prolon ged distal peak latency, reduced amplitude, and decreased conduction velocity (Wrist-2nd Dig it). The Left median/radial (dig I) comparison and the Right median/radial (dig I) comparis on nerves showed prolonged distal peak latency (Median) and abnormal peak latency difference (Median-Radial). The Left median/ulnar (dig IV) comparison and the Right median/ulnar (dig IV) comparison nerves showed prolonged distal peak latency (Median Wr) and abnormal peak la tency difference (Median Wr-Ulnar Wr). The Left median/ulnar (palm) comparison and the Righ t median/ulnar (palm) comparison nerves showed prolonged distal peak latency (Median Palm) a nd abnormal peak latency difference (Median Palm-Ulnar Palm). All remaining nerves (as alexander cated in the following tables) were within normal limits. All F Wave latencies were within normal limits. EMG FINDINGS: Needle evaluation of the Right biceps muscle showed increased insertional act ivity and polyphasic potentials. All remaining muscles (as indicated in the following table ) showed no evidence of electrical instability. DATABASE: Cervical MRI from 03/07/2018 imaging was personally reviewed by wy. I concur with findings as reported by the radiologist. There is no evidence of cervical myelomalacia. There is m oderate cervical spinal stenosis at C4-5 and C6-7. There is severe neural foraminal narrowi ng at right C4-5 and left C5-6. There is moderate neural foraminal narrowing at left C4-5, left C7-T1 and bilaterally C6-7. Lumbar MRI from 03/07/2018 imaging was personally reviewed by wy. I concur with findings a s reported by the radiologist. The imaging demonstrates severe spinal stenosis at L3-4 and L4-5. There is encroachment on the right L4 nerve root from disc herniation at L3-4. 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 IMPRESSION: This is an abnormal study. Nerve conduction study of the right upper extremity was abnormal. Nerve conduction study o f the right upper extremity demonstrates moderate median neuropathy at the right wrist, cons istent with carpal tunnel syndrome. There is no evidence of ulnar neuropathy in the right u pper extremity. There is no evidence of radial neuropathy in the right upper extremity. Nerve conduction study of the left upper extremity was abnormal. Nerve conduction study of the left upper extremity demonstrates moderate median neuropathy at the left wrist, consist ent with carpal tunnel syndrome. There is no evidence of radial neuropathy in the left uppe r extremity. Needle EMG of right upper extremity was abnormal. Needle EMG of the right upper extremity does not meet the diagnostic criteria for cervical radiculopathy. However the changes seen on cervical MRI, Yamileth Chanel's clinical presentation combined with polyphasic potent ials seen in the right biceps muscle, may represent possible chronic right C5 or C6 radiculo duane. Needle EMG of the left upper extremity was normal. There was no evidence of cervical radic ulopathy in the left upper extremity. Please note that absence of evidence is not proof of absence. Cervical radiculopathy may s till be present despite normal EMG study. Please note that nerve conduction study and EMG c annot diagnose, nor rule out upper central nervous system pathology. DISCUSSION: As noted above, this study demonstrates moderate median neuropathy at both wrists, consiste nt with bilateral carpal tunnel syndrome. The carpal tunnel syndrome appears to be worse on the right, compared to the left, which is consistent with Yamileth Chanel's reported sy mptoms. Sequential bilateral carpal tunnel release surgery is recommended. Orthopedic surgery cons ult has been requested. Yamileth Chanel has been instructed to call our clinic if she h as not heard from the surgeon's office within 2 weeks. Yamileth Chanel was instructed to purchase and wear carpal tunnel wrist splints. She w as instructed to wear them at night, only at night, every night, never during the day. She was instructed how to make sure the splint fits correctly. She was advised that using the s plint is unlikely to resolve her symptoms, but may help reduce symptoms, and may help slow t he progression of carpal tunnel syndrome. Today reviewed the association between diabetes and carpal tunnel syndrome. Screening for diabetes was recommended; a 2 hour glucose tolerance test was requested. Today we reviewed the risk of leaving carpal tunnel syndrome untreated. We discussed the n atural progression of carpal tunnel syndrome over time. We discussed the risk of permanent nerve damage. We discussed the risk of permanent pain, numbness, weakness and disability. Today we reviewed her lumbar and cervical imaging results. We discussed treatment options for her cervical and lumbar pathology. She declines surgical treatment options. She declin es neurosurgical consultation. We reviewed treatment options including, but not limited to: physical therapy, weight loss, medication for neuropathic pain, epidural steroid injections and surgery. Physical therapy has been requested for treatment of Yamileth Chanel's neck and back. She will return to the clinic to review response to treatment, with Marin Sanchez PA-C in ap proximately 2 months. Yamileth Chanel will treat carpal tunnel syndrome first. If she has persisting upper e xtremity symptoms after recovering from treatment of carpal tunnel syndrome, more treatment may be required for her neck. Today I spent more than 5 minutes discussing tobacco sensation with Yamileth Chanel. W e discussed the possible association between tobacco use and degenerative changes of the spi ne. We reviewed why smoking cessation is often required prior to considering spine surgery. We discussed that the more times someone tries to stop smoking, the more likely they will succeed. We discussed the association between smoking, skin aging, heart disease, lung dise ase, cancer and . We discussed methods of smoking cessation. Thank you for allowing me to be involved in the care of your patient. If you have any ques tions regarding the care of your patient please don't hesitate to call. Approximately 40 minutes was spent face to face with Yamileth Chanel, beyond the comple tion of the nerve conduction study above, over half of which was spent formulating and discu ssing their medical treatment plan. Thank you for allowing me to be involved in the care of your patient. If you have any quest ions or comments, please do not hesitate to call. Faustino Aquino MD (.) Physical Medicine and Rehabilitation Cc: Geraldo Montano MD documented in this en counter Plan of Treatment +--------+---------+ + + + | Date | Type | Specialty | Care Team | Description | +--------+---------+ + + + | 08/13/ | Office | Neurosurgery | [place], | | | 2019 | Visit | | [address] | | | | | | [address] | | | | | | [place] [address] | | | | | | [phone] | | | | | | | | +--------+---------+ + + + + +------+--------+ + + | Name | Type | Priori | Associated Diagnoses | Order Schedule | | | | ty | | | + +------+--------+ + + | Glucose Tolerance | Lab | Routin | Bilateral carpal | 1 Occurrences | | Test, 2Hr | | e | tunnel syndrome | starting 03/15/2018 | | | | | Numbness and | until 03/15/2019 | | | | | tingling in both | | | | | | hands Hand weakness | | + +------+--------+ + + + + +--------+ + + | Name | Type | Priori | Associated Diagnoses | Order Schedule | | | | ty | | | + + +--------+ + + | * [facility] | Outpatient | Routin | Bilateral carpal | Ordered: 03/15/2018 | | Orthopedic Surgery - | Referral | e | tunnel syndrome | | | AMB Referral | | | Numbness and | | | | | | tingling in both | | | | | | hands Hand weakness | | + + +--------+ + + documented as of this encounter Visit Diagnoses + + | Diagnosis | + + | Bilateral carpal tunnel syndrome - Primary Carpal tunnel syndrome | + + | Numbness and tingling in both hands | + + | Hand weakness Muscle weakness (generalized) | + + | Cervical radiculopathy Brachial neuritis or radiculitis nos | + + | Cervicalgia | + + | Tobacco dependence Tobacco use disorder | + + | Spinal stenosis of lumbar region with neurogenic claudication Spinal stenosis, lumbar | | region, with neurogenic claudication | + + | Chronic bilateral low back pain with bilateral sciatica | + + documented in this encounter
--- OUTSIDE RECORDS SUMMARY | ~2019-08-12 | XMS | Encounter Summary ---
Demographics + + + | Address | [address] | | | [place] [address] | + + + | Home Phone | | + + + | Preferred Language | Unknown | + + + | Marital Status | | + + + | Yazidism Affiliation | 1073 | + + + | Race | Unknown | + + + | Ethnic Group | Unknown | + + + Author + + + | Author | [facility] | | | and [place] | + + + | Organization | [facility] | | | [...] [place] | | | | | [address] | | + + + + + | Jesus Chanel | ECON | [address] | | | | | [place] [address] | | + + + + + Care Team Providers + +------+ + | Care Manager Recruiting Name | Role | Phone | + +------+ + PCP | Unavailable | + +------+ + Encounter Details +--------+ + + + + | Date | Type | Department | Care Team | Description | +--------+ + + + + | 08/27/ | Hospital | [facility] | Armand Torrez | | | 2010 | Encounter | MED CTR XRAY [address] | [address] | | | | | [place] | [place], [place] | | | | | [place] [address] | [address] | | | | | [phone] | | | +--------+ + + + [...] | | 2019 | Visit | | 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 [address] | | | | | | [address] | | | | | | [place] [address] | | | | | | [phone] | | | | | | | [...] Performed At | + + + | [facility] Diagnostic Imaging Department | [facility] | | [address] [facility] | [facility] | | PROCEDURE NOTE LUMBAR FACET | [...] Transcribed Date/Time: | | | 08/27/2010 14:47 Binder Stripper Hand: LaureCAYLA <Electronically Signed | | | by Armand Torrez MD> 09/08/10 1035 | | + + + + + | Procedure Note | + + | Alec, Rad Conversion - 05/26/2013 2:54 PM [facility] | | Diagnostic Imaging Department [address] [place] [address] | | PROCEDURE NOTE LUMBAR FACET INJECTIONS, [...] 13:47 | |Transcribed Date/Time: 08/27/2010 14:47 | |Binder Stripper Hand: | |<Electronically Signed by Armand Torrez MD> 09/08/10 1035 | + + + +---------+ + + | Performing | Address | City/State/[facility] | Phone Number | | Organization | | | | + +---------+ + + | [place] | | | | | [place] | | | | + +---------+ + + documented in this encounter Visit Diagnoses Not on filedocumented in this encounter"
--- OUTSIDE RECORDS SUMMARY | ~2019-08-12 | XMS | Encounter Summary ---
Demographics + + + | Address | [address] | | | [place] [address] | + + + | Home Phone | | + + + | Preferred Language | Unknown | + + + | Marital Status | | + + + | Roman Catholic Affiliation | 1073 | + + + | Race | Unknown | + + + | Ethnic Group | Unknown | + + + Author + + + | Author | [facility] | | | and [place] | + + + | Organization | [facility] | | | and [...] [place] | | | | | [address] | | + + + + + | Jesus Chanel | KARYN | [address] | | | | | [place] [address] | | + + + + + Care Team Providers + +------+ + | Care Equipment Maintenance Superintendent Name | Role | Phone | + +------+ + | Geraldo Montano MD | PCP | | + +------+ + Encounter Details +--------+ + + + + | Date | Type | Department | Care Team | Description | +--------+ + + + + | 02/11/ | Hospital | [facility] | AquinoFaustino, | Neurogenic bowel; | | 2018 | Encounter | MED CTR XRAY [address] | MD [address] | Full incontinence of | | | | [place] | [place], [place] | feces; Chronic | | | | [place] [address] | [address] | midline low back | | | | [phone] | | pain with bilateral | | [...] | | | | when due @@ [facility] | | | | | [...] | | 2019 | Visit | | CLINICAL LEADER [address] | | | | | | [address] | | | | | | [place] [address] | | | | | | [phone] | | | | | | | [...]
--- OUTSIDE RECORDS SUMMARY | ~2019-08-12 | XMS | Encounter Summary ---
Demographics + + + | Address | [address] | | | [place] [address] | + + + | Home Phone | | + + + | Preferred Language | Unknown | + + + | Marital Status | | + + + | Zoroastrian Affiliation | 1073 | + + + [...] [place] | | | | | [address] | | + + + + + | Jesus Chanel | ECON | [address] | | | | | [place] [address] | | + + + + + Care Team Providers + +------+ + | Care Plant Tech Name | Role | Phone | + +------+ + | Gissel Zhong MD | PCP | | + +------+ + Reason for Visit + + + | Reason | Comments | + + + | Abdominal Pain | | | (Severe) | | + + + Encounter Details +--------+ + + + + | Date | Type | Department | Care Team | Description | +--------+ + + + + | 07/18/ | Emergency | [facility] | Nabil Mccurdy, | Chronic pelvic pain | | 2016 - | | MED CTR EMERGENCY | MD [address] | in female (Primary | | | | CENTER [address] | [place] | Dx) | | 07/19/ | | [place] | [address] | | | 2015 | | [address] | | | | | | [phone] | | | +--------+ + + + [...] + + + | Blood Pressure | 133/73 | 07/19/2015 11:10 PM | | | | | PDT | | + + + + + | Pulse | 75 | 07/19/2015 11:10 PM | | | | | PDT | | + + + + + | Temperature | 36.2 C (97.1 F) | 07/19/2015 11:10 PM | | | | | PDT | | + + + + + | Respiratory Rate | 22 | 07/19/2015 11:10 PM | | | | | PDT | | + + + + + | Oxygen Saturation | 95% | 07/19/2015 11:10 PM | | | | | PDT | | + + + + + | Inhaled Oxygen | - | - | | | Concentration | | | | + + + + + | Weight | 76.7 kg (169 lb) | 07/19/2015 11:10 PM | | | | | PDT | | + + + + + | Height | 154.9 cm (5' 0.98") | 07/19/2015 11:10 PM | | | | | PDT | | + + + + + | Body Mass Index | 31.95 | 07/19/2015 11:10 PM | | | | | PDT | | + + + + + documented in this encounter Discharge Nabil Zazueta MD - 07/20/2015Return if worsening or new concerning symptoms . documented in this encounter Medications at Time of [...] | | 2019 | Visit | | PPAP COORDINATOR [address] | | | | | | [address] | | | | | | [place] [address] | | | | | | [phone] | | | | | | | | +--------+---------+ + + + documented as of this encounter Procedures + +--------+ + + + | Procedure Name | Priori | Date/Time | Associated Diagnosis | Comments | | | ty | | | | + +--------+ + + + | URINALYSIS WITH | STAT | 07/19/2015 | | Results for this | | MICROSCOPIC WITH | | 11:56 PM | | procedure are in the | | CULTURE IF INDICATED | | PDT | | results section. | + +--------+ + + + documented in this encounter Results Urinalysis with Microscopic with Culture if Indicated (07/19/2015 11:56 PM PDT) + + + + + + | Component | Value | Ref Range | Performed | Pathologist | | | | | At | Signature | + + + + + + | Color, | Yellow | Light Yellow, | [facility] | | | Urine | | Yellow, Straw | [facility] | | | | | | MEDICAL | | | | | | CENTER - | | | | | | LABORATORY | | + + + + + + | Clarity | Clear | | [facility] | | | | | | [facility] | | | | | | MEDICAL | | | | | | CENTER - | | | | | | LABORATORY | | + + + + + + | pH, Urine | 6.0 | 5.0 - 8.0 | [facility] | | | | | | [facility] | | | | | | MEDICAL | | | | | | CENTER - | | | | | | LABORATORY | | + + + + + + | Specific | 1.005 | 1.001 - 1.030 | [facility] | | | [place], | | | [facility] | | | Urine | | | MEDICAL | | | | | | CENTER - | | | | | | LABORATORY | | + + + + + + | Protein, | Negative | Negative | [facility] | | | Urine | | | [facility] | | | | | | MEDICAL | | | | | | CENTER - | | | | | | LABORATORY | | + + + + + + | Blood, | Negative | Negative | [facility] | | | Urine | | | [facility] | | | | | | MEDICAL | | | | | | CENTER - | | | | | | LABORATORY | | + + + + + + | Glucose, | Negative | Negative | [facility] | | | Urine | | | [facility] | | | | | | MEDICAL | | | | | | CENTER - | | | | | | LABORATORY | | + + + + + + | Ketones, | Negative | Negative | [facility] | | | Urine | | | [facility] | | | | | | MEDICAL | | | | | | CENTER - | | | | | | LABORATORY | | + + + + + + | Bilirubin, | Negative | Negative | [facility] | | | Urine | | | [facility] | | | | | | MEDICAL | | | | | | CENTER - | | | | | | LABORATORY | | + + + + + + | Nitrite, | Negative | Negative | [facility] | | | Urine | | | [facility] | | | | | | MEDICAL | | | | | | CENTER - | | | | | | LABORATORY | | + + + + + + | Leukocyte | Negative | Negative | [facility] | | | Esterase, | | | [facility] | | | Urine | | | MEDICAL | | | | | | CENTER - | | | | | | LABORATORY | | + + + + + + | Urobilinoge | Negative | 0.2 E.U./dL, | [facility] | | | n, Urine | | 1.0 E.U./dL, | [facility] | | | | | Negative | MEDICAL | | | | | | CENTER - | | | | | | LABORATORY | | + + + + + + | White Blood | 0-2 | 0 - 2 /HPF | [facility] | | | Cells, | | | [facility] | | | Urine | | | MEDICAL | | | | | | CENTER - | | | | | | LABORATORY | | + + + + + + | Red Blood | 2-5 (A) | 0 - 2 /HPF | [facility] | | | Cells, | | | [facility] | | | Urine | | | MEDICAL | | | | | | CENTER - | | | | | | LABORATORY | | + + + + + + | Squamous | 25-50 (A) | 0 - 2 /LPF | [facility] | | | Epithelial | | | [facility] | | | Cells, | | | MEDICAL | | | Urine | | | CENTER - | | | | | | LABORATORY | | + + + + + + | Bacteria, | 1+ (A) | Negative /HPF | [facility] | | | Urine | | | [facility] | | | | | | MEDICAL | | | | | | CENTER - | | | | | | LABORATORY | | + + + + + + | Mucus, | Present (A) | Negative /LPF | [facility] | | | Urine | | | [facility] | | | | | | MEDICAL | | | | | | CENTER - | | | | | | LABORATORY | | + + + + + + | Urine | Urine Culture Not | | [facility] | | | Comment | Indicated | | [facility] | | | | | | MEDICAL | | | | | | CENTER - | | | | | | LABORATORY | | + + + + + + + + | Specimen | + + | Urine | + + + + + + + | Performing | Address | City/State/Zipcode | Phone Number | | Organization | | | | + + + + + | [facility] | [address] | [place] | [phone] | | [facility] | | [address] | | | - LABORATORY | | | | + + + + + documented in this encounter Visit Diagnoses + + | Diagnosis | + + | Chronic pelvic pain in female - Primary Unspecified symptom associated with female | | genital organs | + + documented in this encounter Administered Medications + + + +-------+------+------+ | Medication Order | MAR | Action | Dose | Rate | Site | | | Action | Date | | | | + + + +-------+------+------+ | dicyclomine (BENTYL) 10 mg | Dispense | 07/20/19 | 20 mg | | | | capsule (ER Prepack) 20 mg 20 | to Home | 16 1:04 | | | | | mg, Oral, ONCE, 07/20/15 at | | AM PDT | | | | | 0010, For 1 dose, Take 2 | | | | | | | capsule(s) by mouth every 6 hours | | | | | | | Dispense for home use., | | | | | | + + + +-------+------+------+ +---+---+ | | | +---+---+ documented in this encounter
--- OUTSIDE RECORDS SUMMARY | ~2019-08-12 | XMS | Encounter Summary ---
Demographics + + + | Address | [address] | | | [place] [address] | + + + | Home Phone | | + + + | Preferred Language | Unknown | + + + | Marital Status | | + + + | Pentecostalism Affiliation | 1073 | + + + | Race | Unknown | + + + | Ethnic Group | Unknown | + + + Author + + + | Author | [facility] | | | and [place] | + + + | Organization | [facility] | | | [...] [place] | | | | | [address] | | + + + + + | Jesus Chanel | ECON | [address] | | | | | [place] [address] | | + + + + + Care Team Providers + +------+ + | Care Grinding Machine Operator Automatic Name | Role | Phone | + [...] + + | 05/09/ | Telephone | [facility] | Vance Diaz MD | Other | | 2012 | | GASTROENTEROLOGY | [address], [place] | | | | | [address] [place] | [address] [place], [place] | | | | | [address] [place], [place] | [address] | | | | | [address] | | | | | | [phone] | | | +--------+ + + + [...] B | | | | | | [place] [address] | | | | | | [phone] | | | | | | | | +--------+---------+ + + + documented as of this encounter Visit Diagnoses Not on filedocumented in this encounter"
--- OUTSIDE RECORDS SUMMARY | ~2019-08-12 | XMS | Encounter Summary ---
Demographics + + + | Address | [address] | | | [place] [address] | + + + | Home Phone | | + + + | Preferred Language | Unknown | + + + | Marital Status | | + + + | Sabianist Affiliation | 1073 | + + + [...] [place] | | | | | [address] | | + + + + + | Jesus Chanel | ECON | [address] | | | | | [place] [address] | | + + + + + Care Team Providers + +------+ + | Care Transcription Coordinator Name | Role | Phone | + +------+ + | Geraldo Montano MD | PCP | | + +------+ + Reason for Visit +--------+ + | Reason | Comments | +--------+ + | Pain | | +--------+ + Encounter Details +--------+ + + + + | Date | Type | Department | Care Team | Description | +--------+ + + + + | 05/07/ | Emergency | [facility] | Armand Quintanilla MD | Back pain, | | 2020 | | MED CTR EMERGENCY | [address] | unspecified back | | | | CENTER [address] | [place] | location, | | | | [place], [place] | [address] | unspecified back | | | | [address] | | pain laterality, | | | | [phone] | | unspecified | | | | | | chronicity (Primary | | | | | | Dx) | +--------+ + + + + Social [...] + + + | Blood Pressure | 182/85 | 05/07/2019 7:49 PM | | | | | PST | | + + + + + | Pulse | 86 | 05/07/2019 7:49 PM | | | | | PST | | + + + + + | Temperature | 36.6 C (97.9 F) | 05/07/2019 7:49 PM | | | | | PST | | + + + + + | Respiratory Rate | 16 | 05/07/2019 7:49 PM | | | | | PST | | + + + + + | Oxygen Saturation | 96% | 05/07/2019 7:49 PM | | | | | PST | | + + + + + | Inhaled Oxygen | - | - | | | Concentration | | | | + + + + + | Weight | 66.2 kg (146 lb) | 05/07/2019 7:49 PM | | | | | PST | | + + + + + | Height | 154.9 cm (5' 1") | 05/07/2019 7:49 PM | | | | | PST | | + + + + + | Body Mass Index | 27.59 | 05/07/2019 7:49 PM | | | | | PST | | + + + + + documented in this encounter Discharge Instructions Instructions Armand Quintanilla MD - 05/07/2019Jailene medication as needed May slowly resume normal activities as tolerated Return for worsening symptoms, the new complaints AttachmentsThe following attachments cannot be sent through Care Everywhere.Acetaminophen; Hydrocodone tablets or capsules (Martiniquais)documented in this encounter Medications at Time of [...] | | | | | | [facility] | | | | | | [place] [address] | | | | | | [phone] | | | | | | | | +--------+---------+ + + + documented as of this encounter Visit Diagnoses + + | Diagnosis | + + | Back pain, unspecified back location, unspecified back pain laterality, unspecified | | chronicity - Primary | + + documented in this encounter Administered Medications + + + + +------+------+ | Medication Order | MAR | Action | Dose | Rate | Site | | | Action | Date | | | | + + + + +------+------+ | HYDROcodone-acetaminophen | Dispense | 05/07/19 | 1 tablet | | | | (NORCO) 5-325 mg per tablet (ER | to Home | 20 8:25 | | | | | Prepack) 1-2 tablet 1-2 tablet, | | PM PST | | | | | Oral, EVERY 6 HOURS PRN, pain, | | | | | | | Starting 05/07/19 at 2009, | | | | | | | Patient Address: [address], | | | | | | | [place] [address], | | | | | | + + + + +------+------+ +---+---+ | | | +---+---+ documented in this encounter
--- OUTSIDE RECORDS SUMMARY | ~2019-08-12 | XMS | Encounter Summary ---
Demographics + + + | Address | [address] | | | [place] [address] | + + + | Home Phone | | + + + | Preferred Language | Unknown | + + + | Marital Status | | + + + | Judaism Affiliation | 1073 | + + + | Race | Unknown | + + + | Ethnic Group | Unknown | + + + Author + + + | Author | [facility] | | | and [place] | + + + | Organization | [facility] | | | [...] [place] | | | | | [address] | | + + + + + | Jesus Chanel | KARYN | [address] | | | | | [place] [address] | | + + + + + Care Team Providers + +------+ + | Care Wood Tile Installation Helper Name | Role | Phone | + +------+ + | Gissel Zhong MD | PCP | | + +------+ + Encounter Details +--------+ + + + + | Date | Type | Department | Care Team | Description | +--------+ + + + + | 11/15/ | Hospital | [facility] | Armand Torrez | | | 2012 | Encounter | MED CTR XRAY [address] | T, MD [address] | | | | | [place] | [address] [place], [place] | | | | | [place] [address] | [address] | | | | | [phone] | | | +--------+ + + + [...] | | 2019 | Visit | | DIRECTOR INTERNAL COMMUNICATIONS [address] | | | | | [address] | | | | | | [place] [address] | | | | | | [phone] | | | | | | | [...] Performed At | + + + | [facility] | [place] | | Department [address] [facility], [place] | [place] | | [ rep [address]] [ rep [facility] | | st zip] Signed | - IMAGING | | | | | Patient Name: YAMILETH CHANEL Physician: | | | : 1950 Age: 61 Sex: F Unit #: [id number] | | | Exam Date: 11/15/12 Location: [facility] | | | Report #: [id number] Page: | | | %(RAD)RES..mtdd.print.filter("pg") of %(RAD) | | | RES..mtdd.print.filter("tpg") | | | | | | Accession Number: [id number] | | | EPIDURAL STEROID INJECTION CLINICAL [...] | | | Transcribed Date/Time: 11/16/2012 02:58 Switchboard And Control Room Operator: | | | <<Signature on File>> | | | Armand Gonzales | | | MD Shan11/16/12 1627 <Electronically signed by Armand Gonzales | | | Shan RAMIREZ> Armand Torrez MD 11/15/12 8794 | | | Switchboard And Control Room Operator: Mahogany Kerxjjkoobiqb70/31/13 0258 | | | | | + + + + + + + + | Performing | Address | City/State/Zipcode | Phone Number | | Organization | | | | + + + + + | [facility] [place] | [address] | [place] | [phone] | | [facility] | | [address] | | | - IMAGING | | | | + + + + + documented in this encounter Visit Diagnoses Not on filedocumented in this encounter
--- OUTSIDE RECORDS SUMMARY | ~2019-08-12 | XMS | Encounter Summary ---
Demographics + + + | Address | [address] | | | [place] [address] | + + + | Home Phone | | + + + | Preferred Language | Unknown | + + + | Marital Status | | + + + | Mormon Affiliation | 1073 | + + + [...] [place] | | | | | [address] | | + + + + + | Jessu Chanel | ECON | [address] | | | | | [place] [address] | | + + + + + Care Team Providers + +------+ + | Care Fixture Relamper Name | Role | Phone | + +------+ + PCP | Unavailable | + +------+ + Encounter Details +--------+ + + + + | Date | Type | Department | Care Team | Description | +--------+ + + + + | 03/30/ | Hospital | [facility] | | | | 2000 | Encounter | MED CTR XRAY [address] | | | | | | [place] | | | | | | [place] [address] | | | | | | [phone] | | | +--------+ + + + [...] | | | | | [place] [address] | | | | | | [phone] | | | | | | | | +--------+---------+ + + + documented as of this encounter Visit Diagnoses Not on filedocumented in this encounter"
--- OUTSIDE RECORDS SUMMARY | ~2019-08-12 | XMS | Encounter Summary ---
Demographics + + + | Address | [address] | | | [place] [address] | + + + | Home Phone | | + + + | Preferred Language | Unknown | + + + | Marital Status | | + + + | Pentecostal Affiliation | 1073 | + + + | Race | Unknown | + + + | Ethnic Group | Unknown | + + + Author + + + | Author | [facility] | | | and [place] | + + + | Organization | [facility] | | [...] [place] | | | | | [address] | | + + + + + | Jesus Chanel | ECON | [address] | | | | | [place] [address] | | + + + + + Care Team Providers + +------+ + | Care Graduate Teaching Assistant Name | Role | Phone | [...] + + | 06/11/ | Emergency | [facility] | Rex Choi, | Acute exacerbation | | 2019 | | MED CTR EMERGENCY | MD [address] | of chronic low back | | | | CENTER [address] | [facility] [place] | pain (Primary Dx); | | | | [place], [place] | [place], [place] [address] | Paresthesias | | | | [address] | [phone] | | | | | [phone] | | | +--------+ + + + [...] doctor can rec heck your blood sugar. [place] for pain, you will need to get any additional pain medicine from your primary care do ctor Gabapentin, this medicine will need to be adjusted to control your symptoms. Sometimes 900 mg 3 times a day is needed. Follow-up with primary care Follow-up with Dr. Miles LoveThe following attachments cannot be sent through Care Everywhere.Paraesthesias ( Persian)Back Pain (Acute or Chronic) (Persian)documented in this encounter Medications at Time of [...] | | 2019 | Visit | | HIGHWAY ADMINISTRATIVE ENGINEER [address] | | | | | | [employer] [address] | | | | | | [place] [address] | | | | | | [phone] | | | | | | | [...] S?MRN: | | | | | | [id number] | | | [id number] | | | riteri | | | [...] | | | St. | | | [place] | | | y | | | [...] | | | St. | | | [place] | | | y H. | | [...] [address] | [place] | [phone] | | [facility] | | [address] | | | - LABORATORY | | [...]
--- OUTSIDE RECORDS SUMMARY | ~2019-08-12 | XMS | Encounter Summary ---
Demographics + + + | Address | [address] | | | [place] [address] | + + + | Home Phone [...] [place] | | | | | [address] | | + + + + + | Jesus Chanel | KARYN | [address] | | | | | [place] [address] | | + + + + + Care Team Providers + +------+ + | Care Neurophysiology Tech Name | Role | Phone | + +------+ + | Gissel Zhong MD | PCP | | + +------+ + Encounter Details +--------+ + + + + | Date | Type | Department | Care Team | Description | +--------+ + + + + | 04/27/ | Abstract | [facility] | [facility], | | | 2012 | | GASTROENTEROLOGY | ANA [address] | | | | | [address] [place] | [place], [place] [address] | | | | | [address] [place], [place] | [place], [place] | | | | | [address] | [address] | | | | | [phone] | | | +--------+ + + + [...] | | 2019 | Visit | | MANAGER BASKETBALL [address] | | | | | [address] | | | | | | [place] [address] | | | | | | [phone] | | | | | | | | +--------+---------+ + + + documented as of this encounter Visit Diagnoses Not on filedocumented in this encounter"
--- OUTSIDE RECORDS SUMMARY | ~2019-08-12 | XMS | Encounter Summary ---
Demographics + + + | Address | [address] | | | [place] [address] | + + + | Home Phone [...] [place] | | | | | [address] | | + + + + + | Jesus Chanel | KARYN | [address] | | | | | [place] [address] | | + + + + + Care Team Providers + +------+ + | Care Fluoroscope Operator Name | Role | Phone | [...] | | | [address] [place] | [place] [address] | | | | | [place] [address] | | | | | | [phone] | | | +--------+ + + + [...] B | | | | | | [place] [address] | | | | | | [phone] | | | | | | | [...] for comparison only - no result from [place]. | [facility] | + + + + +---------+ + + | Performing | Address | City/State/Zipcode | Phone Number | | Organization | | | | + +---------+ + + | [facility] | | | | + +---------+ + + documented in this encounter Visit Diagnoses Not on filedocumented in this encounter"
--- OUTSIDE RECORDS SUMMARY | ~2019-08-12 | XMS | Encounter Summary ---
Demographics + + + | Address | [address] | | | [place] [address] | + + + | Home Phone | | + + + | Preferred Language | Unknown | + + + | Marital Status | | + + + | Caodaism Affiliation | [id number] | + + + | Race | Unknown | + + + | Ethnic Group | Unknown | + + + Author + + + | Author | [facility] | | | and [place] | + + + | Organization | [facility] | | | [...] [place] | | | | | [address] | | + + + + + | Jesus Chanel | ECON | [address] | | | | | [place] [address] | | + + + + + Care Team Providers + +------+ + | Care Commercial Credit Reviewer Name | Role | Phone | + +------+ + | Geraldo Montano MD | PCP | | + +------+ + Reason for Visit + + + | Reason | Comments | + + + | Follow-up | Neck & Back Pain | + + + Encounter Details +--------+---------+ + + + | Date | Type | Department | Care Team | Description | +--------+---------+ + + + | 05/18/ | Office | [facility] | Marin Sanchez, | Cervical | | 2019 | Visit | PHYSIATRY [address] | PA-C [address] | radiculopathy; | | | | [address] | [address] [place] | Lumbar radiculopathy | | | | [place], [place] | [place] [address] | | | | | [address] | [phone] | | | | | [phone] | | | +--------+---------+ + + + [...] + + + | Blood Pressure | 127/78 | 05/18/2018 9:43 AM | | | | | PST | | + + + + + | Pulse | 84 | 05/18/2018 9:43 AM | | | | | PST [...] Weight | 76.7 kg (169 lb) | 05/18/2018 9:43 AM | | | | | PST | | + + + + + | Height | 154.9 cm (5' 0.98") | 05/18/2018 9:43 AM | | | | | PST | | + + + + + | Body Mass Index | 31.95 | 05/18/2018 9:43 AM | | | | | PST | | + + + + + documented in this encounter Patient Instructions Patient Instructions Marin Sanchez PA-C - 05/18/2018 10:22 AM PSTFollow up with Marin schulz PA-C approximately 3 weeks after injection. Please remember to complete pain log form fo r this visit. Follow-up at the hospital thirty minutes before your scheduled procedure to allow for time to check in. You may eat and drink as usual on the day of the procedure. If you are scheduled for an epidural injection do not take any blood thinning medications f or at least 5-7 days prior to your procedure unless you have been instructed by another phys ician not to discontinue blood thinning medications. If you are having a procedure other than an epidural injection (i.e. facet injection, media l branch block, SI joint injection or other joint injection) it is not absolutely necessary to discontinue blood thinning medications but doing so will decrease the risk of bruising or bleeding. If you have had a prior stroke, DVT or PE or if you are taking blood thinning medication be cause you have atrial fibrillation, a prosthetic cardiac valve replacement or heart stenting do not stop taking your blood thinning medications unless you have permission from your car diologist or primary care provider. All other medications should be taken as usual on the day of the procedure. Common blood thinning medications include: Aspirin (a baby aspirin is o.k.) Ibuprofen (Advil or Motrin) Naproxen (Aleve) Nabumetone (Relafen) Clopidogrel (Plavix) Dipyridamole/ASA (Aggrenox) Warfarin (Coumadin) Dabigatran (Pradaxa) Rivaroxaban (Xarelto) There are many others. If you have questions about your medications and whether or not you should stop any medications please contact our office. If you are having an epidural injection or if you take any medication for relaxation/sedati on on the day of the procedure you must provide a pole truck driver to take you home. For all procedur es it is recommended that someone else drive you home. Possible Causes of Low Back or Leg Pain The symptoms in your back or leg may be due to pressure on a nerve. This pressure may be ca used by a damaged disk or by abnormal bone growth. Either way, you may feel pain, burning, t ingling, or numbness. If you have pressure on a nerve that connects to the sciatic nerve, pa in may shoot down your leg. Pressure from the disk Constant wear and tear can weaken a disk over time and cause back pain. The disk can then b e damaged by a sudden movement or injury. If its soft center starts to bulge, the disk may p ress on a nerve. Or the outside of the disk may tear, and the soft center may squeeze throug h and pinch a nerve. Pressure from bone As a disk wears out, the vertebrae right above and below the disk start to touch. This can put pressure on a nerve. Often, abnormal bone (called bone spurs) grows where the vertebrae rub against each other. This can cause the foramen or the spinal canal to narrow (called abril nosis) and press against a nerve. Date Last Reviewed: 06/17/[id number] [employer]. [address] [place] [address], [place] [address]. All righ ts reserved. This information is not intended as a substitute for professional medical care. Always follow your healthcare professional's instructions. documented in this encounter Progress Notes Marin Sanchez PA-C - 05/18/2018 10:00 AM PSTFormatting of this note might be different fro m the original. [address] [facility] [place], [place] [id number] FAX: PHYSICAL MEDICINE AND REHABILITATION H&P CHIEF COMPLAINT: Chief Complaint Patient presents with Follow-up Neck & Back Pain HISTORY OF PRESENT ILLNESS: Yamileth Chanel 's a 67 y.o. female being seen today for t he complaint of low back and neck pain that began in 1992. She reports that the pain start ed without any inciting event/after giving to her son that resulted in a broken tailbo ne and 4 injured vertebrae. The symptoms have been rapidly worsening. This visit is recomm ended that she have cervical MRI and lumbar MRI as well as participate in physical therapy a nd had of labs completed to rule out fibromyalgia. Patient has not completed physical thera py or the fibromyalgia labs. Cervical MRI and lumbar MRI completed which show severe neural foraminal stenosis at right C5-C6 region and severe central canal stenosis at L3-4 and L4-5 . Yamileth Chanel rates the neck and low back pain as severe. He rates the low back pain is worse than the neck pain. The symptoms are continuous. Yamileth Chanel describes t he pain as burning and throbbing. Yamileth Chanel describes leg symptoms that occur on both sides. The leg symptoms are persistent and the symptoms travel from the mid low back to the anterior thighs down into th e anterior calves. The patient does report numbness in the bilateral hands 1st-5th digit. She recently had a nerve conduction study with Dr. flowers which showed moderate to severe ca rpal tunnel syndrome bilaterally. She is recommended to see a surgeon however she is not in terested in surgery. She does report weakness of the right lower extremity. Yamileth Chanel reports she will be walking and her right leg will buckle. Yamileth Chanel does report any change in bowel function or saddle anesthesia recently. Yamileth Chanel reported loss of bowel control that began approximately 4 years ago. D ginger Chanel reports her last loss of bowel control was approximately two days ago. Her symptoms improve with rest and medication Ibuprofen. Her symptoms worsen with changing position, standing, sitting, walking, running, kneeling, bending, twisting, stairs, light exertion, moderate exertion and strenuous exertion. Yamileth Chanel has tried PT, Chiropactic, Massage, TENS, NSAIDS, Steroids, Injections and Muscle relaxers. Yamileth Chanel most recent course of physical therapy was comple chelle 1992. Yamileth Chanel is currently taking Ibuprofen medication for treatment of low back and neck pain. PAST MEDICAL HISTORY: Past Medical History: Diagnosis Date Adenomatous polyp of colon 05/04/12 Anemia Anxiety Cerumen impaction Chronic bilateral low back pain with bilateral sciatica Chronic dermatitis of feet Colon polyp Degenerative disc disease, lumbar Depression Esophageal reflux Essential hypertension Family history of Parkinson disease Fibroids Fibromyalgia Gastropathy GERD (gastroesophageal reflux disease) H/O hysterectomy for benign disease H/O: GI bleed Hypercalcemia Hypercholesterolemia Hyperlipidemia 2011 Insomnia due to medical condition Irritable bowel syndrome with diarrhea Lumbar spondylosis Lumbosacral radiculopathy Lump of breast, left Mixed hyperlipidemia Muscle spasms of neck Myalgia Myositis Neck arthritis Neuropathy of both upper extremities Osteoarthrosis, generalized, multiple joints Osteoporosis Paroxysmal supraventricular tachycardia (HCC) Perennial allergic rhinitis Salivary secretion disturbance Tinea pedis of both feet Tobacco use disorder Ulcer PAST SURGICAL HISTORY: Past Surgical History: Procedure Laterality Date BREAST LUMPECTOMY 1966 COLONOSCOPY 05/04/2012 next colon 2018 EGD 05/04/2012 No erosive gastropathy ENDOMETRIAL BIOPSY 02/2003 LEG SURGERY PARTIAL HYSTERECTOMY 2004 due to fibroids TUBAL LIGATION CURRENT MEDICATIONS: Current Outpatient Prescriptions Medication Sig Dispense Refill cholecalciferol (VITAMIN D-3) 1,000 units capsule Take 1 capsule by mouth Daily. clonazePAM (KLONOPIN) 0.5 mg tablet Take 0.5 mg by mouth 3 times daily as needed. For A nxiety or seizures. Fill when due @@ SF cyanocobalamin (VITAMIN B-12) 100 MCG tablet Take 100 mcg by mouth Daily. diclofenac (VOLTAREN) 1% GEL Apply 2-4 g topically Twice daily as needed for Pain. Yvonne ly to affected joint for arthritis pain. FLUoxetine (PROZAC) 40 MG capsule Take 1 capsule by mouth Daily. fluticasone (FLONASE) 50 mcg/nasal spray 2 sprays by Nasal route Daily. hydroCHLOROthiazide 25 mg tablet Take 25 mg by mouth Daily. ibuprofen (ADVIL, MOTRIN) 200 mg tablet Take 200 mg by mouth every 6 hours as needed. Liniments (THERAPEUTIC BLUE ICE EX) Apply topically. Multiple Vitamins-Minerals (EYE VITAMINS) CAPS Take 1 capsule by mouth. nortriptyline (PAMELOR) 50 MG capsule Take 50 mg by mouth nightly. tocopherol (VITAMIN E) 100 units capsule Take 100 Units by mouth Daily. verapamil (CALAN SR) 180 mg SR tablet Take 180 mg by mouth 2 times daily. No current facility-administered medications for this visit. ALLERGIES: Allergies Allergen Reactions Amoxicillin-Pot Clavulanate Other (See Comments) Reaction not specified in outside medical records Lovastatin Other (See Comments) Memory impairment Sulfa Antibiotics Other (See Comments) Reaction not specified in outside medical records SOCIAL HISTORY: The patient reports that she has been smoking Cigarettes. She started smoking about 42 ye ars ago. She has a 63.00 pack-year smoking history. She has never used smokeless tobacco. Sh e reports that she does not drink alcohol or use drugs. FAMILY HISTORY: Family History Problem Relation Age of Onset Depression Mother Mental illness Mother depression High blood pressure Mother Arthritis Mother Lymphoma Mother Tuberculosis Mother Bleeding problems Mother Blood Clots Cancer Mother Parkinsonism Mother Heart disease Father Arthritis Father Heart attack Father Stroke Father Diabetes Father High blood pressure Father COPD Father Emphysema Father Alcohol abuse Father Gout Other Parkinsonism Other Grandfather REVIEW OF SYSTEMS: Review of Systems Constitutional: Positive for malaise/fatigue. Negative for chills, diaphoresis, fever and w eight loss. HENT: Positive for congestion. Negative for ear discharge, ear pain, hearing loss, noseblee ds, sinus pain, sore throat and tinnitus. Eyes: Negative for blurred vision, double vision, photophobia, pain, discharge and redness. Vision loss with reading Respiratory: Negative. Negative for stridor. Cardiovascular: Negative for chest pain, palpitations, orthopnea, claudication, leg swellin g and PND. Gastrointestinal: Positive for abdominal pain, diarrhea, nausea and vomiting. Negative for blood in stool, constipation, heartburn and melena. Genitourinary: Negative. Musculoskeletal: Positive for back pain, falls, joint pain, myalgias and neck pain. Skin: Negative for itching. Neurological: Positive for dizziness, weakness and headaches. Negative for tingling, tremor s, sensory change, speech change, focal weakness, seizures and loss of consciousness. Endo/Heme/Allergies: Negative. Negative for environmental allergies and polydipsia. Does n ot bruise/bleed easily. Psychiatric/Behavioral: Positive for depression and memory loss. Negative for hallucination s, substance abuse and suicidal ideas. The patient is nervous/anxious and has insomnia. PHYSICAL EXAMINATION: Blood pressure 127/78, pulse 84, height 1.549 m (5' 0.98"), weight 76.7 kg (169 lb). Body m ass index is 31.95 kg/m. GENERAL: She does appear uncomfortable when seated. HEENT: HEAD/FACE: EYES: Normocephalic and atraumatic. There are no areas of recent trauma. Normal sclerae without icterus. SKIN There are no visible scars. CHEST: The patient is in no acute respiratory distress with unlabored respirations. HEART: There is not lower extremity edema. ABDOMEN: The patient is overweight. NEUROLOGIC: The patient is awake, alert, and oriented to time, place, person. She follows simple and complex commands. Her speech is fluent. She comprehends speech well. She has no apparent deficits with short or intermediate project manager memory. She has appropriate fund of knowledge Cranial nerves appear grossly intact. Sensory exam:Intact sensation to light touch in the upper extremities. Subjective decreased sensation to the right thenar eminence with Monofilament testing. Intact sensation in the upper extremities Absent sensation to the L-5 dermatomes in the bilateral lower extremities. MOTOR EXAM: (5 IS NORMAL) * Indicates pain limited MUSCLE/ MOVEMENT: RIGHT LEFT Deltoids 5 5 Biceps 5 5 Triceps 5 5 Wrist Flexion 5 5 Wrist Extension 5 5 Finger Abduction 5 5 Marriage And Family Therapist Strength 4 4 Hip Flexion 5 5 Hip Extension 5 5 Knee Flexion 5 5 Knee Extension 5 5 Extensor Hallicus Longus 5 5 Ankle Dorsiflexion 5 5 Plantarflexion 5 5 Positive downgoing babinski bilaterally. No clonus in the ankles bilaterally. Garrett's "finger flick test" positive bilaterally. Biceps and triceps 3+ bilaterally. REFLEX: RIGHT LEFT PATELLAR 3+ 3+ ACHILLES 3+ 3+ PLANTAR Downgoing Downgoing MUSCULOSKELETAL The patient localized the majority of the pain to the mid low back lumbar s pine region. WPI score: 16 SS score: 10 RADIOGRAPHIC REVIEW: Cervical MRI and lumbar MRI were completed on 03/07/18. Images were reviewed with patient wilfrid liao. Results suggest severe neural foraminal stenosis at right C5-C6 region. Severe centra l canal stenosis at L3-4 and L4-5. IMPRESSION: 1. Cervical radiculopathy 2. Lumbar radiculopathy PLAN: 1) Today we discussed the patient's differential diagnosis with the likely primary issue be ing cervical radiculopathy and lumbar radiculopathy. Patient's description of symptoms, phys ical exam, and imaging suggest this diagnosis at this time. 2) I counseled patient on treatment options which included conservative self management usi ng OTC NSAIDs/Ice and heat packs, physical therapy, prescription medications, epidural stero id injection, neuromodulation devices, as well as possible surgical intervention. 3) Imaging: As descibed above in radiology review. 4) The patient has had significant conservative care including medications (NSAIDS and narc otics), PT (multiple sessions over the years) and healthcare social worker. Unfortunately Yamileth Chanel continues to have significant discomfort. It appears to me that the pain is prim arily coming from severe central canal stenosis of lumbar region and severe neural foraminal stenosis and cervical region. I did feel that Yamileth Chanel would be a good candidate for interventional procedu res and I offered a bilateral L5-S1 TF KAYLAN and bilateral L4-5 TF KAYLAN to be done. Patient wi ll also have a C7-T1 IL KAYLAN right of midline to target the C5-C6 neural foraminal stenosis. Patient is to be scheduled for lumbar injections first followed by cervical injection 3 wee ks later. We discussed surgical intervention due to the severity of the stenosis. I encourage alonso walsh to quit smoking. Patient also described occasional loss of bowel control which I infor med her could be related to the severe central canal stenosis of lumbar spine. Encouraged t o her to quit smoking as is required prior to her surgery. I informed her the risk of long- term compression of the spinal cord which can cause long-term loss of bowel control and gave her the choice to either quit smoking and become a surgical candidate or continue smoking a nd have chronic and permanent loss of bowel control. 5) Patient will follow up with me 3 weeks post neck injection to discuss any imaging and/or progress with today's treatment plan. 6) If current treatment plan is insufficient for symptom relief we could try referral to ne urosurgery as the next therapy option. I spent 30 minutes in visit with Yamileth Chanel today with the majority of time spent counselling the patient on her diagnosis, options for her care, and coordinating her care. documented in this en counter Plan of Treatment +--------+---------+ + + + | Date | Type | Specialty | Care Team | Description | +--------+---------+ + + + | 08/13/ | Office | Neurosurgery | João Hill, | | | 2019 | Visit | | PANEL MONITOR [address] [facility] | | | | | | [address] | | | | | | [place] [address] | | | | | | [phone] | | | | | | | | +--------+---------+ + + + + +---------+--------+ + + | Name | Type | Priori | Associated Diagnoses | Order Schedule | | | | ty | | | + +---------+--------+ + + | FL KAYLAN Lumbar | Imaging | Routin | Lumbar | Expected: | | Transforaminal | | e | radiculopathy | 05/18/2018, Expires: | | | | | | 05/18/2019 | + +---------+--------+ + + | FL KAYLAN Cervical | Imaging | Routin | Cervical | Expected: | | Thoracic | | e | radiculopathy | 05/18/2018, Expires: | | Interlaminar | | | | 05/19/2019 | + +---------+--------+ + + documented as of this encounter Visit Diagnoses + + | Diagnosis | + + | Cervical radiculopathy Brachial neuritis or radiculitis nos | + + | Lumbar radiculopathy Thoracic or lumbosacral neuritis or radiculitis, unspecified | + + documented in this encounter
--- OUTSIDE RECORDS SUMMARY | ~2019-08-12 | XMS | Encounter Summary ---
Demographics + + + | Address | [address] | | | [place] [address] | + + + | Home Phone | | + + + | Preferred Language | Unknown | + + + | Marital Status | | + + + | Nondenominational Affiliation | [id number] | + + + | Race | Unknown | + + + | Ethnic Group | Unknown | + + + Author + + + | Author | [facility] | | | and [place] | + + + | Organization | [facility] | | | [...] [place] | | | | | [address] | | + + + + + | Serjio Chanel | ECON | [address] | | | | | [place] [address] | | + + + + + Care Team Providers + +------+ + | Care Dam Tender Name | Role | Phone | [...] | | disease), | [address] | [facility] | | | | | lumbar | [address] | [place], [place] | | | | | Lumbar facet | [place], [place] | [address] | | | | | arthropathy | [address] | Phone: | | | | | Chronic | Phone: | [phone] | | | | | bilateral | [phone] | Fax: | | | | | low back | Fax: | | | | | | pain with | [phone] | | | | | | bilateral [...] | | | | region with | [address], | [address] | | | | | neurogenic | [place] [address] | [place], [place] | | | | | claudication | Phone: | [phone] | | | | | | [phone] | Phone: | | | | | | Fax: | [phone] | | | | | | [phone] | Fax: | | | | | | | [phone] | + +--------+ + + + + Encounter Details +--------+---------+ + + + | Date | Type | Department | Care Team | Description | +--------+---------+ + + + | 05/23/ | Office | [facility] | João Hill, | DDD (degenerative | | 2020 | Visit | NEUROSURGERY [address] ELECTRONICS SPECIALIST [address] | disc disease), | | | | [address] | [address] | lumbar (Primary Dx); | | | | [place], [place] | [place] [address] | Lumbar facet | | | | [address] | [phone] | arthropathy; Chronic | | | | [phone] | | bilateral low back | | [...] encounter Patient Instructions Patient Instructions Beryl Whitmore, Central Office Installer - 05/23/2019 10:40 AM PSTXray cervical and lumbar Referral to [facility] Follow up after 6-8 sessions of physical therapy documented in this encounter Progress Notes João Hill, ELECTRONICS SPECIALIST - 05/23/2019 10:40 AM PSTFormatting of this [...] file Gets together: Not on file Attends samaritan service: Not on file Active member of [...] see Yamileth Chanel. Please call me at [phone] with any questions or concerns. Sincerely, ANA [facility] Note: I spent approximately 45 minutes in [id number] time of which greater than 50% was [...] B | | | | | | [place] [address] | | | | | | [phone] | | | | | | | [...] Alignment: There are 5 | | | [id number]-[id number] lumbar vertebral type bodies. Vertebrae: Normal. | [...] FINDINGS: | | Alignment: There are 5 tuz-bss-xcymaip lumbar vertebral type bodies. | | | [...]
--- OUTSIDE RECORDS SUMMARY | ~2019-08-12 | XMS | Encounter Summary ---
Demographics + + + | Address | [address] | | | [place] [address] | + + + | Home Phone | | + + + | Preferred Language | Unknown | + + + | Marital Status | | + + + | Sikhism Affiliation | 1073 | + + + | Race | Unknown | + + + | Ethnic Group | Unknown | + + + Author + + + | Author | [facility] | | | and [place] | + + + | Organization | [facility] | | [...] [place] | | | | | [address] | | + + + + + | Jesus Chanel | ECON | [address] | | | | | [place] [address] | | + + + + + Care Team Providers + +------+ + | Care Plant Controls Specialist Name | Role | Phone | + +------+ + PCP | Unavailable | + +------+ + Encounter Details +--------+ + + + + | Date | Type | Department | Care Team | Description | +--------+ + + + + | 12/30/ | Abstract | [place] [facility] | DATA MIGRATION MEKA | | | 2011 | | Conversion Location | SR | | | | | [address] [facility] | | | | | | [place], [place] | | | | | | [address] | | | | | | [phone] | | | +--------+ + + + [...] + + + | Blood Pressure | 136/84 | 02/17/2011 12:00 AM | | | | | PDT | | + + + + + | Pulse | - | - | | + [...] + + + + | Weight | 83.9 kg (185 lb) | 02/17/2011 12:00 AM | | | | | PDT | | + + + + + | Height | 155 cm (5' 1.02") | 06/18/2010 12:00 AM | | | | | PST | | + + + + + | Body Mass Index | 34.93 | 06/18/2010 12:00 AM | | | | | PST | | + + + + + documented in this encounter Plan of Treatment +--------+---------+ + + + | Date | Type | Specialty | Care Team | Description | +--------+---------+ + + + | 08/13/ | Office | Neurosurgery | João Hill, | | | 2019 | Visit | | NUCLEAR INSTRUCTOR [address] | | | | | | [address] | | | | | | [place] [address] | | | | | | [phone] | | | | | | | | +--------+---------+ + + + documented as of this encounter Procedures + +--------+ + + + | Procedure Name | Priori | Date/Time | Associated Diagnosis | Comments | | | ty | | | | + +--------+ + + + | MERA SCREENING | Routin | 07/24/2009 | | Results for this | | BILATERAL | e | 12:00 AM | | procedure are in the | | | | PDT | | results section. | + +--------+ + + + | PAP SMEAR | Routin | 01/04/2008 | | Results for this | | | e | 12:00 AM | | procedure are in the | | | | PDT | | results section. | + +--------+ + + + documented in this encounter Results MERA Screening Bilateral (07/24/2009 12:00 AM PDT) + + | Specimen | + + | | + + + + + | Narrative | Performed At | + + + | | | + + + Pap Smear (01/04/2008 12:00 AM PDT) + + | Specimen | + + | | + + + + + | Narrative | Performed At | + + + | | | + + + documented in this encounter Visit Diagnoses Not on filedocumented in this encounter
--- OUTSIDE RECORDS SUMMARY | ~2019-08-12 | XMS | Encounter Summary ---
Demographics + + + | Address | [address] | | | [place] [address] | + + + | Home Phone [...] [place] | | | | | [address] | | + + + + + | Jesus Chanel | ECON | [address] | | | | | [place] [address] | | + + + + + Care Team Providers + +------+ + | Care Laundry Route Driver Name | Role | Phone | + [...] + + | 05/18/ | Office | [facility] | Marin Sanchez, | Cervical | | 2019 | Visit | PHYSIATRY [address] | PA-C [address] | radiculopathy; | | | | [address] | [address] [place] | Lumbar radiculopathy | | | | [place], [place] | [place] [address] | | | | | [address] | [phone] | | | | | [phone] | | | +--------+---------+ + + + [...] of the procedure you must provide a horse and wagon driver to take you home. For all [...] press against a nerve. Date Last Reviewed: 06/17/201719997919-0011 [employer]. [address] [place] [address], [place] [address]. All righ ts reserved. This information is not intended as a substitute for professional medical care. Always follow your healthcare professional's instructions. documented in this encounter Progress Notes Marin Sanchez PA-C - 05/18/2018 10:00 AM PSTFormatting of this note might be different fro m the original. [address] [facility] [address] [place], [place] [id number] FAX: PHYSICAL MEDICINE AND REHABILITATION H&P CHIEF [...] light exertion, moderate exertion and strenuous exertion. Ymaileth Chanel has tried PT, Chiropactic, Massage, TENS, [...] has no apparent deficits with short or terminal worker memory. She has appropriate fund of knowledge [...] Extension 5 5 Finger Abduction 5 5 Electrical Systems Drafter Strength 4 4 Hip Flexion 5 5 [...] PT (multiple sessions over the years) and caretaker grounds. Unfortunately Yamileth Chanel continues to have significant [...] | | 2019 | Visit | | PHYTOPATHOLOGIST [address] [facility] | | | | | | [address] | | | | | | [place] [address] | | | | | | [phone] | | | | | | | [...]
--- OUTSIDE RECORDS SUMMARY | ~2019-08-12 | XMS | Encounter Summary ---
Demographics + + + | Address | [address] | | | [place] [address] | + + + | Home Phone | | + + + | Preferred Language | Unknown | + + + | Marital Status | | + + + | Congregation Affiliation | 1073 | + + + | Race | Unknown | + + + | Ethnic Group | Unknown | + + + Author + + + | Author | [facility] | | | and [place] | + + + | Organization | [facility] | | | and [place] | + + + | Address | Unknown | + + + | Phone | Unavailable | + + + Support + + + + + | Name | Relationship | Address | Phone | + + + + + | Dennis Almazan | KARYN | [address] | | | | | [place] | | | | | [address] | | + + + + + | Jesus Chanel | ECON | [address] | | | | | [place] [address] | | + + + + + Care Team Providers + +------+ + | Care Satellite Technician Name | Role | Phone | + +------+ + | Geraldo Montano MD | PCP | | + +------+ + Reason for Visit Auth/Cert +--------+--------+ + + + + | Status | Reason | Specialty | Diagnoses / | Referred By | Referred To | | | | | Procedures | Contact | Contact | +--------+--------+ + + + + | | | | Diagnoses | | Taylor, | | | | | Diarrhea, | | Josue Montero, | | | | | unspecified | | MD [address] | | | | | type | | [address] | | | | | Generalized | | [place], | | | | | abdominal | | [place] [address] | | | | | pain | | Phone: | | | | | Unintentiona | | [phone] | | | | | l weight | | Fax: | | | | | loss | | [phone] | | | | | Allergy to | | | | | | | opioid | | | | | | | analgesic | | | | | | | Failed | | | | | | | conscious | | | | | | | sedation | | | | | | | during | | | | | | | procedure, | | | | | | | subsequent | | | | | | | encounter | | | | | | | Procedures | | | | | | | NM | | | | | | | ESOPHAGOGAST | | | | | | | RODUODENOSCO | | | | | | | PY TRANSORAL | | | | | | | DIAGNOSTIC | | | | | | | NM EGD | | | | | | | TRANSORAL | | | | | | | BIOPSY | | | | | | | SINGLE/MULTI | | | | | | | PLE NM | | | | | | | COLONOSCOPY | | | | | | | FLX DX | | | | | | | W/COLLJ SPEC | | | | | | | WHEN PFRMD | | | | | | | NM | | | | | | | COLONOSCOPY | | | | | | | W/BIOPSY | | | | | | | SINGLE/MULTI | | | | | | | PLE NM | | | | | | | COLSC FLX | | | | | | | W/RMVL OF | | | | | | | TUMOR POLYP | | | | | | | LESION SNARE | | | | | | | TQ NM | | | | | | | ANESTHESIA | | | | | | | COMBINED | | | | | | | UPPER&LOWER | | | | | | | GI | | | | | | | ENDOSCOPIC | | | | | | | PX EGD | | | | | | | COLONOSCOPY | | | +--------+--------+ + + + + Encounter Details +--------+ + + + + | Date | Type | Department | Care Team | Description | +--------+ + + + + | 06/20/ | Hospital | [facility] | Josue Vazquez | Diarrhea, | | 2020 | Encounter | MED CTR MP INTRA OP | MD [address] | unspecified type; | | | | [address] | [address] [place] | Generalized | | | | [place], [place] | [place] [address] | abdominal pain; | | | | [address] | [phone] | Unintentional weight | | | | [phone] | | loss; Allergy to | | [...] B | | | | | | [place] [address] | | | | | | [phone] | | | | | | | | +--------+---------+ + + + documented as of this encounter Visit Diagnoses + + | Diagnosis | + + | Diarrhea, unspecified type | + + | Generalized abdominal pain Abdominal pain, generalized | + + | Unintentional weight loss Loss of weight | + + | Allergy to opioid analgesic | + + | Failed conscious sedation during procedure, subsequent encounter | + + documented in this encounter Admitting Diagnoses + + | Diagnosis | + + | Diarrhea, unspecified type | + + | Generalized abdominal pain Abdominal pain, generalized | + + | Unintentional weight loss Loss of weight | + + | Allergy to opioid analgesic | + + | Failed conscious sedation during procedure, subsequent encounter | + + documented in this encounter"
--- OUTSIDE RECORDS SUMMARY | ~2019-08-12 | XMS | Encounter Summary ---
Demographics + + + | Address | [address] | | | [place] [address] | + + + | Home Phone | | + + + | Preferred Language | Unknown | + + + | Marital Status | | + + + | Advent Affiliation | 1073 | + + + | Race | Unknown | + + + | Ethnic Group | Unknown | + + + Author + + + | Author | [facility] | | | and [place] | + + + | Organization | [facility] | | [...] [place] | | | | | [address] | | + + + + + | Jesus Chanel | ECON | [address] | | | | | [place] [address] | | + + + + + Care Team Providers + +------+ + | Care Manager Transfusion Name | Role | Phone | + [...] + + | 06/19/ | Telephone | [facility] | Josue Vazquez | Procedure (cancel | | 2019 | | GASTROENTEROLOGY | MD [address] | egd/colon) | | | | [address] [place] | [address] [place] [address] | | | | | [address] | [place] [address] | | | | | [address] | [phone] | | | | | [phone] | | | +--------+ + + + [...] | | | | | | [place] [address] | | | | | | [phone] | | | | | | | | +--------+---------+ + + + documented as of this encounter Visit Diagnoses Not on filedocumented in this encounter"
--- OUTSIDE RECORDS SUMMARY | ~2019-08-12 | XMS | Encounter Summary ---
Demographics + + + | Address | [address] | | | [place] [address] | + + + | Home Phone | | + + + | Preferred Language | Unknown | + + + | Marital Status | | + + + | Spiritism Affiliation | 1073 | + + + | Race | Unknown | + + + | Ethnic Group | Unknown | + + + Author + + + | Author | [facility] | | | and [place] | + + + | Organization | [facility] | | | [...] [place] | | | | | [address] | | + + + + + | Jesus Chanel | ECON | [address] | | | | | [place] [address] | | + + + + + Care Team Providers + +------+ + | Care Tube And Manifold Builder Name | Role | Phone | + +------+ + PCP | Unavailable | + +------+ + Encounter Details +--------+ + + + + | Date | Type | Department | Care Team | Description | +--------+ + + + + | 11/16/ | Hospital | [facility] | | | | 2001 | Encounter | MED CTR XRAY [address] | | | | | | [address] | | | | | | [place] [address] | | | | | | [phone] | | | +--------+ + + + [...] | | | | | [place] [address] | | | | | | [phone] | | | | | | | | +--------+---------+ + + + documented as of this encounter Visit Diagnoses Not on filedocumented in this encounter"
--- OUTSIDE RECORDS SUMMARY | ~2019-08-12 | XMS | Clinical Summary ---
Demographics + + + | Address | [address] | | | [place] [address] | + + + | Home Phone | | + + + | Preferred Language | Unknown | + + + | Marital Status | Unknown | + + + | Latter Day Affiliation | Unknown | + + + | Race | Unknown | + + + | Ethnic Group | Unknown | + + + Author + + + | Author | [facility] [employer] (Historical as of | | | 12-03-18) | + + + | Organization | [facility] [employer] (Historical as of | | | 12-03-18) [...] Team Providers + +------+ + | Care Business Management Associate Name | Role | Phone | + [...] +------+-------+ + | MEDICARE | MEDICA | [id number] | | | [address] | | | RE | | | | [place] [address] | | | IP-OP | | | [...] | 1950 | [phone] | [place] [address] | | | iglesia | | | 2029 | | + +--------+ +--------+ + +"
--- OUTSIDE RECORDS SUMMARY | ~2019-08-12 | XMS | Encounter Summary ---
Demographics + + + | Address | [address] | | | [place] [address] | + + + | Home Phone | | + + + | Preferred Language | Unknown | + + + | Marital Status | | + + + | Congregation Affiliation | 1073 | + + + | Race | Unknown | + + + | Ethnic Group | Unknown | + + + Author + + + | Author | [facility] | | | and [place] | + + + | Organization | [facility] | | [...] [place] | | | | | [address] | | + + + + + | Jesus Chanel | ECON | [address] | | | | | [place] [address] | | + + + + + Care Team Providers + +------+ + | Care Peer Health Promoter Name | Role | Phone | + +------+ + PCP | Unavailable | + +------+ + Encounter Details +--------+ + + + + | Date | Type | Department | Care Team | Description | +--------+ + + + + | 04/01/ | Hospital | [facility] | | | | 1999 | Encounter | MED CTR XRAY [address] | | | | | | [address] | | | | | | [place] [address] | | | | | | [phone] | | | +--------+ + + + [...] | | | | | [place] [address] | | | | | | [phone] | | | | | | | | +--------+---------+ + + + documented as of this encounter Visit Diagnoses Not on filedocumented in this encounter"
--- OUTSIDE RECORDS SUMMARY | ~2019-08-12 | XMS | Encounter Summary ---
Demographics + + + | Address | [address] | | | [place] [address] | + + + | Home Phone | | + + + | Preferred Language | Unknown | + + + | Marital Status | | + + + | Confucianism Affiliation | 1073 | + + + [...] [place] | | | | | [address] | | + + + + + | Jesus Chanel | KARYN | [address] | | | | | [place] [address] | | + + + + + Care Team Providers + +------+ + | Care Farm Machine Tender Name | Role | Phone | [...] | | | [address] [place] | [place] [address] | | | | | [place] [address] | | | | | | [phone] | | | +--------+ + + + [...] B | | | | | | [place] [address] | | | | | | [phone] | | | | | | | [...] for comparison only - no result from [place]. | [facility] | + + + + +---------+ + + | Performing | Address | City/State/Zipcode | Phone Number | | Organization | | | | + +---------+ + + | [facility] | | | | + +---------+ + + documented in this encounter Visit Diagnoses Not on filedocumented in this encounter"
--- OUTSIDE RECORDS SUMMARY | ~2019-08-12 | XMS | Encounter Summary ---
Demographics + + + | Address | [address] | | | [place] [address] | + + + | Home Phone | | + + + | Preferred Language | Unknown | + + + | Marital Status | | + + + | Judaism Affiliation | 1073 | + + + | Race | Unknown | + + + | Ethnic Group | Unknown | + + + Author + + + | Author | [facility] | | | and [place] | + + + | Organization | [facility] | | [...] [place] | | | | | [address] | | + + + + + | Jesus Chanel | KARYN | [address] | | | | | [place] [address] | | + + + + + Care Team Providers + +------+ + | Care Stuffer Name | Role | Phone | + +------+ + | Geraldo Montano MD | PCP | | + +------+ + Encounter Details +--------+ + + + + | Date | Type | Department | Care Team | Description | +--------+ + + + + | 07/21/ | Community | [facility] | Lv Fernandez, | | | 2015 | Orders | [place] [address] | [address] | | | | | [place], [place] | [place], [place] | | | | | [address] | [address] | | | | | [phone] | | | +--------+ + + + [...] | | 2019 | Visit | | 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
--- OUTSIDE RECORDS SUMMARY | ~2019-08-12 | XMS | Encounter Summary ---
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 Expires: | | (25-Hydroxy) | | | | 02/11/2019 | + +------+--------+ + + | FERMIN Qual, EIA, | Lab | Routin | Fibromyalgia | 1 Occurrences | | Reflex | | e | Total body pain | starting 02/11/2018 | | | | | | until 02/11/2019 | + +------+--------+ + + + + +--------+ + + | Name | Type | Priori | Associated Diagnoses | Order Schedule | | | | ty | | | + + +--------+ + + | * [facility] [place] | Outpatient | Routin | Neurogenic bowel | Ordered: 02/11/2018 | | Physiatry - AMB | Referral | e | Full incontinence of | | | Referral | | | feces Chronic | | | | | | Midline Low Back | | | | | | Pain With Bilateral | | | | | | Sciatica | | | | | | Cervicalgia Hand | | | | | | weakness Numbness | | | | | | And Tingling In Both | | | | | | Hands | | | | | | Hyperreflexia Right | | | | | | leg weakness | | | | | | Numbness And | | | | | | Tingling Of Both | | | | | | Lower Extremities | | | | | | Fibromyalgia | | + + +--------+ + + | Physical Therapy - | Outpatient | Routin | Neurogenic bowel | Ordered: 02/11/2018 | | Ambulatory Referral | Referral | e | Full incontinence of | | | | | | feces Chronic | | | | | | midline low back | | | | | | pain with bilateral | | | | | | sciatica | | | | | | Cervicalgia Hand | | | | | | weakness Numbness | | | | | | and tingling in both | | | | | | hands | [...] + + documented as of this encounter Results MRI Lumbar Spine w [...] | Procedure Note | + + | Bobo Michael Results In - 03/07/2018 12:31 PM PST [...] | | | + +---------+ + + MRI Cervical Spine w wo Contrast (03/07/2018 [...] XR Cervical Spine 2 or 3 Views (02/11/2018 12:07 PM PDT) + + | Specimen | + + | | + + + + + | Narrative | Performed At | + + + | FOUR VIEWS CERVICAL SPINE 02/11/2018 12:07 PM CLINICAL HISTORY: | [facility] | | neck pain COMPARISON: CT August 2012 FINDINGS: Vertebral height | | | and alignment are maintained, without evident fracture or | | | subluxation. There is moderate to severe disc space narrowing at | | | C6-7 with lesser disc space narrowing at C4-5 and C5-6. Multilevel | | | vertebral spondylosis and facet hypertrophy are present. 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 | | | Imaged skull base, soft tissue structures and lung apices are | | | unremarkable. IMPRESSION - 1. MULTILEVEL DEGENERATIVE DISC | | | DISEASE AND SPONDYLOSIS. Dictated and Signed by: Julio C Pittman MD | | | Electronically signed: 02/11/2018 1:35 PM | | + + + + + | Procedure Note | + + | Alec, Rad Results In - 02/11/2018 1:38 PM PDT FOUR VIEWS CERVICAL SPINE 02/11/2018 | | 12:07 PMCLINICAL HISTORY: neck painCOMPARISON: CT August 2012FINDINGS: Vertebral height and | | alignment are maintained, without evidentfracture or subluxation. There is moderate to | | severe disc space narrowing atC6-7 with lesser disc space narrowing at C4-5 and C5-6. | | Multilevel vertebralspondylosis and facet hypertrophy are present. Ossification of the | | ligamentumnuchae is again evident at C5-6. Imaged skull base, soft tissue structures | | andlung apices are unremarkable.IMPRESSION -1. MULTILEVEL DEGENERATIVE DISC DISEASE | | AND SPONDYLOSIS.Dictated and Signed by: Julio C Pittman MD Electronically signed: | | 02/11/2018 1:35 PM | |spondylosis and facet hypertrophy are present. Ossification of the ligamentum | |nuchae is again evident at C5-6. Imaged skull base, soft tissue structures and | |lung apices are unremarkable. | | | |IMPRESSION - | |1. MULTILEVEL DEGENERATIVE DISC DISEASE AND SPONDYLOSIS. | | | |Dictated and Signed by: Julio C Pittman MD | | Electronically signed: 02/11/2018 1:35 PM | + + + +---------+ + + | Performing | Address | City/State/Zipcode | Phone Number | | Organization | | | | + +---------+ + + | [facility] | | | | + +---------+ + + XR Lumbar Spine 2 or [...] SPONDYLOLISTHESIS. Dictated and Signed by: Julio C | | | MD Zain Electronically signed: 02/11/2018 [...] | |Dictated and Signed by: Julio C Zain, MD | | Electronically signed: 02/11/2018 1:37 PM | + + + +---------+ + + | Performing | Address | City/State/Zipcode | Phone Number | | Organization | | | | + +---------+ + + | [facility] | | | | + +---------+ + + documented in this encounter Visit Diagnoses + + | Diagnosis | + + | Neurogenic bowel - Primary | + + | Full incontinence of [...] and myositis, unspecified | + + | Vitamin D deficiency Unspecified vitamin D deficiency | + + | Total body pain Generalized pain | + + documented in this encounter
--- OUTSIDE RECORDS SUMMARY | ~2019-08-12 | XMS | Encounter Summary ---
Demographics + + + | Address | [address] | | | [place] [address] | + + + | Home Phone | | + + + | Preferred Language | Unknown | + + + | Marital Status | | + + + | Scientology Affiliation | [id number] | + + + | Race | Unknown | + + + | Ethnic Group | Unknown | + + + Author + + + | Author | [facility] | | | and Vaughn | + + + | Organization | [facility] | | | [...] [place] | | | | | [address] | | + + + + + | Jesus Chanel | KARYN | [address] | | | | | [place] [address] | | + + + + + Care Team Providers + +------+ + | Care Tobacco Farmworker Name | Role | Phone | + [...] + + | 06/25/ | Telephone | [facility] | [place], | Imaging | | 2019 | | NEUROSURGERY [address] | [address] | | | | | [address] | [address] | | | | | [place], [place] | [place] [address] | | | | | [address] | [phone] | | | | | [phone] | | | +--------+ + + + [...] | | 2019 | Visit | | [address] | | | | | | [address] | | | | | | [place] [address] | | | | | | [phone] | | | | | | | [...]
--- OUTSIDE RECORDS SUMMARY | ~2019-08-12 | XMS | Encounter Summary ---
Demographics + + + | Address | [address] | | | [place] [address] | + + + | Home Phone [...] [place] | | | | | [address] | | + + + + + | Jesus Chanel | ECON | [address] | | | | | [place] [address] | | + + + + + Care Team Providers + +------+ + | Care Oyster Preparer Name | Role | Phone | + +------+ + PCP | Unavailable | + +------+ + Encounter Details +--------+ + + + + | Date | Type | Department | Care Team | Description | +--------+ + + + + | 04/30/ | Hospital | [facility] | | | | 2010 | Encounter | MED CTR XRAY [address] | | | | | | [address] | | | | | | [place] [address] | | | | | | [phone] | | | +--------+ + + + [...] | | | | | [place] [address] | | | | | | [phone] | | | | | | | | +--------+---------+ + + + documented as of this encounter Visit Diagnoses Not on filedocumented in this encounter"
--- OUTSIDE RECORDS SUMMARY | ~2019-08-12 | XMS | Encounter Summary ---
Demographics + + + | Address | [address] | | | [place] [address] | + + + | Home Phone [...] [place] | | | | | [address] | | + + + + + | Jesus Chanel | ECON | [address] | | | | | [place] [address] | | + + + + + Care Team Providers + +------+ + | Care Scale Agent Name | Role | Phone | + +------+ + PCP | Unavailable | + +------+ + Encounter Details +--------+ + + + + | Date | Type | Department | Care Team | Description | +--------+ + + + + | 04/20/ | Abstract | [facility] [place] | [facility], | | | 2012 | | GASTROENTEROLOGY | ANA [address] | | | | | [address] [place] | [place], [address] | | | | | [address] [place], [place] | [place], [place] | | | | | [address] | [address] | | | | | [phone] | | | +--------+ + + + [...] | | | | | [place] [address] | | | | | | [phone] | | | | | | | | +--------+---------+ + + + documented as of this encounter Visit Diagnoses Not on filedocumented in this encounter"
--- OUTSIDE RECORDS SUMMARY | ~2019-08-12 | XMS | Encounter Summary ---
Demographics + + + | Address | [address] | | | [place] [address] | + + + | Home Phone [...] [place] | | | | | [address] | | + + + + + | Jesus Chanel | ECON | [address] | | | | | [place] [address] | | + + + + + Care Team Providers + +------+ + | Care Director Of Communications Name | Role | Phone | + [...] + | 04/20/ | Emergency | 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
--- OUTSIDE RECORDS SUMMARY | ~2019-08-12 | XMS | Encounter Summary ---
Demographics + + + | Address | [address] | | | [place] [address] | + + + | Home Phone [...] [place] | | | | | [address] | | + + + + + | Jesus Chanel | KARYN | [address] | | | | | [place] [address] | | + + + + + Care Team Providers + +------+ + | Care Director Of Physiotherapy Services Name | Role | Phone | + +------+ + | Geraldo Montano MD | PCP | | + +------+ + Encounter Details +--------+ + + + + | Date | Type | Department | Care Team | Description | +--------+ + + + + | 05/25/ | Hospital | [facility] | [place], | | | 2020 | Encounter | [facility] | INSPECTOR BULLET SLUGS [address] | | | | | [address] | [address] | | | | | [address] [place], [place] | [place] [address] | | | | | [address] | [phone] | | | | | [phone] | | | +--------+ + + + [...] Sánchez | | | | | | [facility] [address] | | | | | | [phone] | | | | | | | [...] Alignment: There are 5 | | | [id number] lumbar vertebral type bodies. Vertebrae: Normal. | [...] FINDINGS: | | Alignment: There are 5 [id number] lumbar vertebral type bodies. | | | [...]
--- OUTSIDE RECORDS SUMMARY | ~2019-08-12 | XMS | Encounter Summary ---
Demographics + + + | Address | [address] | | | [place] [address] | + + + | Home Phone | | + + + | Preferred Language | Unknown | + + + | Marital Status | | + + + | Mormonism Affiliation | 1073 | + + + [...] [place] | | | | | [address] | | + + + + + | Jesus Chanel | ECON | [address] | | | | | [place] [address] | | + + + + + Care Team Providers + +------+ + | Care Statistics Professor Name | Role | Phone | + [...] | Faustino Alejandre MD | [address] | | | | | Hand | [address] | [place], | | | | | weakness | [address] | [place] | | | | | Numbness and | [place], | [address] | | | | | tingling in | [place] [address] | Phone: | | | | | both hands | Phone: | [phone] | | | | | | [phone] | Fax: | | | | | Hyperreflexi | Fax: | [phone] | | | | | a | [phone] | | | | | | Fibromyalgia [...] | | | | | Cervicalgia | Faustion Alejandre MD | [address] | | | | | Hand | [address] | [place], | | | | | weakness | [address] | [place] | | | | | Numbness and | [place], | [address] | | | | | tingling in | [place] [address] | Phone: | | | | | both hands | Phone: | [phone] | | | | | | [phone] | Fax: | | | | | Hyperreflexi | Fax: | [phone] | | | | | a | [phone] | | | | | | Fibromyalgia [...] | 03/07/ | Hospital | 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
--- OUTSIDE RECORDS SUMMARY | ~2019-08-12 | XMS | Encounter Summary ---
Demographics + + + | Address | [address] | | | [place] [address] | + + + | Home Phone | | + + + | Preferred Language | Unknown | + + + | Marital Status | | + + + | Hoahaoism Affiliation | 1073 | + + + [...] [place] | | | | | [address] | | + + + + + | Jesus Chanel | KARYN | [address] | | | | | [place] [address] | | + + + + + Care Team Providers + +------+ + | Care Investment Executive Name | Role | Phone | + +------+ + | Geraldo Montano MD | PCP | | + +------+ + Encounter Details +--------+ + + + + | Date | Type | Department | Care Team | Description | +--------+ + + + + | 02/11/ | Hospital | [facility] | Faustino Aquino, | Cervicalgia; Hand | | 2018 | Encounter | MED CTR XRAY [address] | MD [address] | weakness; Numbness | | | | [address] [place] | [place], [place] | and tingling in both | | | | [place] [address] | [address] | hands; | | | | [phone] | | Hyperreflexia; | | | | [...] | | 2019 | Visit | | 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 | | | | | hands | | | | | | Hyperreflexia | | | | | | Fibromyalgia | | + +--------+ + + + documented in this encounter Results XR Cervical Spine 2 or 3 Views [...]
--- OUTSIDE RECORDS SUMMARY | ~2019-08-12 | XMS | Encounter Summary ---
Demographics + + + | Address | [address] | | | [place] [address] | + + + | Home Phone [...] [place] | | | | | [address] | | + + + + + | Serjio Chanel | ECON | [address] | | | | | [place] [address] | | + + + + + Care Team Providers + +------+ + | Care Cell Biology Scientist Name | Role | Phone | + [...] Closed | | Radiology | Diagnoses | [place], | [address] | | | | | Diarrhea, | Josue | [facility] | | | | | unspecified | MD Winston | [place], | | | | | type | [address] | [place] [address] | | | | | Generalized | [address] [place] | Phone: | | | | | abdominal | [place], [place] | [phone] | | | | | pain | [address] | Fax: | | | | | Unintentiona | Phone: | [phone] | | | | | l weight | [phone] | | | | | | loss | Fax: | | | | | | Procedures | [phone] | | | | | | CT Abdomen | | | | | | | Pelvis w | | | | | | | Contrast | | | | | | | CHG CT | | | | | | | SCAN,ABDOMEN | | | | | | | AND | | | | | | | PELVIS,W | | | | | | | CONTRAST | | | | | | | 05/26>PEND | | | | | | | REPLY FROM | | | | | | | RN | | | +--------+--------+ + + + + Reason for Visit +--------+ + | Reason | Comments | +--------+ + | Other | gastritis, colitis | +--------+ + Evaluate & Treat (Routine) +--------+--------+ + + + + | Status | Reason | Specialty | Diagnoses / | Referred By | Referred To | | | | | Procedures | Contact | Contact | +--------+--------+ + + + + | Closed | | Gastroenterol | Diagnoses | [place], | [facility] | | | ogy | | Geraldo Johnson MD | Gastroenterol | | | | | Noninfective | [address] | ogy [address] | | | | | [address] | [address] | | | | | gastroenteri | [place], | [address] [place] | | | | | tis and | [place] [address] | [place], [place] | | | | | colitis, | Phone: | [address] | | | | | unspecified | [phone] | Phone: | | | | | | Fax: | [phone] | | | | | | [phone] | Fax: | | | | | | | [phone] | +--------+--------+ + + + + Encounter Details +--------+---------+ + + + | Date | Type | Department | Care Team | Description | +--------+---------+ + + + | 05/22/ | Office | [facility] | Josue Vazquez | H/O failed conscious | | 2020 | Visit | GASTROENTEROLOGY | MD [address] | sedation (Primary | | | | [address] | [address] [place] | Dx); Diarrhea, | | | | [address] [place], [place] | [place], [place] [address] | unspecified type; | | | | [address] | [phone] | Generalized | | | | [phone] | | abdominal pain; | | | | | | Unintentional weight | | | | | | loss | +--------+---------+ + + + Social History [...] + + + | Blood Pressure | 134/71 | 05/22/2019 1:22 PM | | | | | PST | | + + + + + | Pulse | 80 | 05/22/2019 1:22 PM | | | | | PST | | + + + + + | Temperature | 37.2 C (98.9 F) | 05/22/2019 1:22 PM | | | | | PST | | + + + + + | Respiratory Rate | 16 | 05/22/2019 1:22 PM | | | | | PST | | + + + + + | Oxygen Saturation | 96% | 05/22/2019 1:22 PM | | | | | PST | | + + + + + | Inhaled Oxygen | - | - | | | Concentration | | | | + + + + + | Weight | 65.1 kg (143 lb 8.3 | 05/22/2019 1:22 PM | | | | oz) | PST | | + + + + + | Height | - | - | | + + + + + | Body Mass Index | 27.12 | 05/07/2019 7:49 PM | | | | | PST | | + + + + + documented in this encounter Patient Instructions Patient Instructions Josue Vazquez MD - 05/22/2019 1:00 PM PST1. Kefir is a good pr obiotic 2. Another is called "align" 3. The panreatin could be constipating 4. Set up EGD and colonoscopy documented in this encounter Progress Notes Josue Vazquez MD - 05/22/2019 1:00 PM PST Outpatient Gastroenterology Consult Note Date of Office Visit: 05/22/19 Referring Provider: Geraldo Montano MD [address] [place] [address] Providing Physician: Josue Vazquez MD. Chief Complaint: Other (gastritis, colitis) History of Present Illness Yamileth Chanel is a 68 y.o. female with a history of tubulovillous colon polyps, spina l stenosis with neurogenic claudication, gastric erosions on EGD in 2012- for H. pylori on b iopsies, history of failed conscious sedation, prior diagnosis of IBS with both diarrhea and constipation, referred by Geraldo Montano for evaluation of diarrhea and unintentional weight lo ss with associated generalized abdominal pain. She reports that her GI symptoms took a turn for the worse in September 2018. This is occurred along with lower back pain with numbness stretching down into both her feet. She has had a difficult time determining how much of her GI symptoms are from her back prob lems. She tells me today that she is going to see neurosurgery at [facility] tomorrow where they are planning on likely doing back surgery, per her report. She reports she has severe lower abdominal pain with gas and bloating. Her diarrhea persis chelle until about a week ago when she started taking a probiotic since then she has had improv ement and is now actually feeling constipated. She had fecal incontinence, due to "loss of s ensation ". Reviewed her notes from Dr. Montano where she was seen February 24, 2019, she was seen for her GI symptoms. He ran stool studies on her including stool culture lactoferrin ova and kavin ites and fecal occult blood, the only notable result was that her lactoferrin was positive. She endorses colonic spasms. She is also taking Bentyl She endorses bad sleep due to both her GI and back pain. She has lost 50lbs since September, this is unintentional. Nuts seem to make her symptoms worse. Taking a high fiber diet now, seems to help. Tried cu tting out dairy. It didn't help. She is not taking any ibuprofen right now, she had been using a lot of it but stopped as it was giving her more GI upset. She stopped ibu 1 mo ago. She reports that the diarrhea is the most bothersome problem for her at this point in time. Endoscopic History I reviewed her EGD and colonoscopy performed by Dr. Crump, on 05/04/2012. She had 3 "medium sized polyps", descending, transverse, mid transverse. They were adenoma s, the transverse colon was a tubulovillous adenoma. She was given a 5-year interval. Dr. Crump commented that it was a tortuous and redundant colon and was otherwise normal. The EGD showed normal esophagus, nonbleeding erosive gastritis biopsied. Normal duodenum. H. pylori biopsy was negative Review of Systems ROS A 12 point review of systems was conducted with the patient. Pertinent positives and negati ves listed per HPI Problem List Patient Active Problem List Diagnosis GI BLEEDING FM HX MALIGNANT NEOPLASM GASTROINTESTINAL TRACT ABDOMINAL PAIN Lumbar spondylosis NICOTINE ADDICTION Myalgia and myositis DEGENERATIVE DISC DISEASE, LUMBAR SPINE DEPRESSION/ANXIETY HERNIATED LUMBOSACRAL DISC LUMBOSACRAL RADICULOPATHY Fibromyalgia Anemia Chronic bilateral low back pain with bilateral sciatica Chronic dermatitis of feet Colon polyp Depressive disorder, not elsewhere classified Esophageal reflux Essential hypertension Family history of Parkinson disease Gastropathy Insomnia due to medical condition Hypercalcemia H/O hysterectomy for benign disease Irritable bowel syndrome with diarrhea Mixed hyperlipidemia Muscle spasms of neck Neuropathy of both upper extremities Osteoarthrosis Perennial allergic rhinitis PSVT (paroxysmal supraventricular tachycardia) Tinea pedis of both feet Tobacco use disorder Cervical myelopathy Lumbar radiculopathy Kidney lesion Moderate major depression PTSD (post-traumatic stress disorder) Spinal stenosis of lumbar region with neurogenic claudication Past Medical History Past Medical History: Diagnosis Date Adenomatous polyp of colon 05/04/12 Anemia Anxiety Cerumen impaction Chronic bilateral low back pain with bilateral sciatica Chronic dermatitis of feet Colon polyp Degenerative disc disease, lumbar Depression Esophageal reflux Essential hypertension Family history of Parkinson disease Fibroids Fibromyalgia Gastropathy GERD (gastroesophageal reflux disease) H/O hysterectomy for benign disease H/O: GI bleed Hypercalcemia Hypercholesterolemia Hyperlipidemia 2010 Insomnia due to medical condition Irritable bowel syndrome with diarrhea Lumbar spondylosis Lumbosacral radiculopathy Lump of breast, left Mixed hyperlipidemia Muscle spasms of neck Myalgia Myositis Neck arthritis Neuropathy of both upper extremities Osteoarthrosis, generalized, multiple joints Osteoporosis Paroxysmal supraventricular tachycardia (HCC) Perennial allergic rhinitis Salivary secretion disturbance Tinea pedis of both feet Tobacco use disorder Ulcer Past Surgical History Past Surgical History: Procedure Laterality Date BREAST LUMPECTOMY 1966 COLONOSCOPY 05/04/2012 next colon 2018 EGD 05/04/2012 No erosive gastropathy ENDOMETRIAL BIOPSY 02/2003 LEG SURGERY PARTIAL HYSTERECTOMY 2005 due to fibroids TUBAL LIGATION Family History Family History Problem Relation Age of Onset Depression Mother Mental illness Mother depression High blood pressure Mother Arthritis Mother Lymphoma Mother Tuberculosis Mother Bleeding problems Mother Blood Clots Cancer Mother Parkinsonism Mother Heart disease Father Arthritis Father Heart attack Father Stroke Father Diabetes Father High blood pressure Father COPD Father Emphysema Father Alcohol abuse Father Gout Other Parkinsonism Other Grandfather Social History Social History Socioeconomic History Marital status: Spouse name: SERJIO CHANEL Number of children: Not on file Years of education: Not on file Highest education level: Not on file Tobacco Use Smoking status: Current Every Day Smoker Packs/day: 1.50 Years: 42.00 Pack years: 63.00 Types: Cigarettes Start date: 02/02/1976 Smokeless tobacco: Never Used Substance and Sexual Activity Alcohol use: No Drug use: No Allergies Allergies Allergen Reactions Amoxicillin-Pot Clavulanate Other (See Comments) Reaction not specified in outside medical records Demerol (Meperidine) Other (See Comments) Psychotic breakdown Lovastatin Other (See Comments) Memory impairment Oxycodone Other (See Comments) Psychotic breakdown Sulfa Antibiotics Other (See Comments) Reaction not specified in outside medical records Intolerance No active intolerances/contraindications Medications Current Outpatient Medications on File Prior to Visit Medication Sig Dispense Refill cholecalciferol (VITAMIN D-3) 1,000 units capsule Take 1 capsule by mouth Daily. cyanocobalamin (VITAMIN B-12) 100 MCG tablet Take 100 mcg by mouth Daily. cyclobenzaprine (FLEXERIL) 5 MG tablet Take 1 tablet by mouth. dicyclomine (BENTYL) 10 mg capsule Digestive Enzymes (SUPER ENZYMES PO) Take by mouth. fish oil 1,000 mg capsule 1 capsule. Homeopathic Products (ARNICARE EX) Apply topically. Arnica 30x hydroCHLOROthiazide 25 mg tablet Take 25 mg by mouth. HYDROcodone-acetaminophen (NORCO) 7.5-325 mg per tablet ibuprofen (ADVIL, MOTRIN) 200 mg tablet Take 200 mg by mouth every 6 hours as needed. Liniments (THERAPEUTIC BLUE ICE EX) Apply topically. Multiple Vitamins-Minerals (EYE VITAMINS) CAPS Take 1 capsule by mouth. PANCREATIN PO Take by mouth. sertraline (ZOLOFT) 50 mg tablet Take 50 mg by mouth Daily. tocopherol (VITAMIN E) 100 units capsule Take 100 Units by mouth Daily. UNABLE TO FIND Med Name: Sandee aury humasreekanth UNABLE TO FIND Med Name: synbiotic 365 verapamil (CALAN SR) 180 mg SR tablet Take 180 mg by mouth 2 times daily. No current facility-administered medications on file prior to visit. Physical Exam Vitals:BP 134/71 | Pulse 80 | Temp 37.2 C (98.9 F) (Temporal) | Resp 16 | Wt 65.1 k g (143 lb 8.3 oz) | SpO2 96% | BMI 27.12 kg/m General: This is a well-developed,well-nurished female in no apparent distress, alert and o riented x 3. Head: Reveals normocephalic, atraumatic Eyes: Sclera anicteric, normal conjunctiva Mouth: Oropharynx is clear without obstruction. No oral lesion. Lungs: Clear to auscultation without rales or wheezes. Cardiac: Reveals regular rate and rhythm with normal S1 and S2 and no murmurs, rubs or gall ops. Abdomen: Soft and tender to palpation throughout the entire abdomen without masses or orga nmegaly. No guarding or rebound pain. Normoactive bowel sounds. Extremities: Without cyanosis, clubbing or edema. Neuro: Awake, alert, oriented x3. Skin: Warm and dry, no erythematous rash. Labs Stool studies from February 22, 2019, Normal stool culture, ova and parasites, and FOBT Positive lactoferrin Imaging No relevant abdominal imaging Assessment and Plan This is a 68-year-old woman with chronic abdominal pain, likely history for IBS, now with i nterval worsening of diarrhea, fecal incontinence, and unintentional weight loss. Her fecal incontinence is somewhat confounded by lumbar spine disease with what sounds like spinal st enosis and sciatica. She does have an elevated fecal lactoferrin, raising the likelihood of an inflammatory diar sheridan such as inflammatory bowel disease, microscopic colitis, or potentially peptic ulcer di sease She also has a history of multiple colon adenomas and is due for polyp surveillance as well . Patient reports a history of failed IV conscious sedation. She says she was awake during t he entire EGD and colonoscopy. She says she would refuse to have an endoscopy done again wi conscious sedation and request propofol which I think is indicated. 1. Diarrhea, abdominal pain, unintentional weight loss, elevated lactoferrin -At this time I recommend that EGD colonoscopy be performed for further evaluation. Indica tions risks benefits and possible complications were discussed with the patient who wishes t o proceed with EGD and colonoscopy at this time. -Recommend monitored anesthesia care with propofol given her history of failed IV conscious sedation -Continue Bentyl as ordered -Obtain CT abdomen pelvis with contrast given unintentional weight loss. 2. Fecal incontinence -This could be from proctitis but also she has neurogenic claudication and spinal stenosis -Further evaluate with colonoscopy as above ICD-10-CM ICD-9-CM 1. H/O failed conscious sedation Z92.83 V15.80 2. Diarrhea, unspecified type R19.[address] Abdomen Pelvis w Contrast 3. Generalized abdominal pain R10.[address] Abdomen Pelvis w Contrast 4. Unintentional weight loss R63.[address] Abdomen Pelvis w Contrast Follow up: No follow-ups on file. CC: Geraldo Montano MD [address] [place] [address] Geraldo Montano MD[address] [facility] [address] Portions of this chart may have been created with [employer] voice recognition software. Occasi onal wrong-word or sound-alike substitutions may have occurred due to the inherent khan itations of voice recognition software. Please read the chart carefully and recognize, using context, where these substitutions have occurred documented in this encounter Plan of Treatment +--------+---------+ + + + | Date | Type | Specialty | Care Team | Description | +--------+---------+ + + + | 08/13/ | Office | Neurosurgery | João Hill, | | | 2019 | Visit | | WAGON DRIVER [address] | | | | | | [address] | | | | | | [place] [address] | | | | | | [phone] | | | | | | | | +--------+---------+ + + + + +---------+--------+ + + | Name | Type | Priori | Associated Diagnoses | Order Schedule | | | | ty | | | + +---------+--------+ + + | CT Abdomen Pelvis w | Imaging | Routin | Diarrhea, | Expected: | | Contrast | | e | unspecified type | 05/22/2019, Expires: | | | | | Generalized | 05/22/2020 | | | | | abdominal pain | | | | | | Unintentional weight | | | | | | loss | | + +---------+--------+ + + documented as of this encounter Visit Diagnoses + + | Diagnosis | + + | H/O failed conscious sedation - Primary Personal history of failed moderate sedation | + + | Diarrhea, unspecified type | + + | Generalized abdominal pain Abdominal pain, generalized | + + | Unintentional weight loss Loss of weight | + + documented in this encounter
--- OUTSIDE RECORDS SUMMARY | ~2019-08-12 | XMS | Encounter Summary ---
Demographics + + + | Address | [address] | | | [place] [address] | + + + | Home Phone [...] [place] | | | | | [address] | | + + + + + | Jesus Chanel | KARYN | [address] | | | | | [place] [address] | | + + + + + Care Team Providers + +------+ + | Care Director Of Operations Name | Role | Phone | + [...] | | | [address] [place] | [place] [address] | | | | | [place] [address] | | | | | | [phone] | | | +--------+ + + + [...] B | | | | | | [place] [address] | | | | | | [phone] | | | | | | | [...] for comparison only - no result from [facility]. | [facility] | + + + + +---------+ + + | Performing | Address | City/State/Zipcode | Phone Number | | Organization | | | | + +---------+ + + | [facility] | | | | + +---------+ + + documented in this encounter Visit Diagnoses Not on filedocumented in this encounter"
--- OUTSIDE RECORDS SUMMARY | ~2019-08-12 | XMS | Encounter Summary ---
Demographics + + + | Address | [address] | | | [place] [address] | + + + | Home Phone [...] [place] | | | | | [address] | | + + + + + | Jesus Chanel | ECON | [address] | | | | | [place] [address] | | + + + + + Care Team Providers + +------+ + | Care Paperhanger Assistant Name | Role | Phone | [...] 2012 | | GASTROENTEROLOGY | [address], [place] | | | | | [address] [facility] | [address] [place] | | | | | [address] [place], [place] | [id number] | | | | | [address] | | | | | | [phone] | | | +--------+ + + + [...] | | 2019 | Visit | | ARCHITECTURAL DESIGN PROFESSOR [address] | | | | | | [address]IVE [facility] | | | | | | [place] [address] | | | | | | [phone] | | | | | | | | +--------+---------+ + + + documented as of this encounter Visit Diagnoses Not on filedocumented in this encounter"
--- OUTSIDE RECORDS SUMMARY | ~2019-08-12 | XMS | Encounter Summary ---
Demographics + + + | Address | [address] | | | [place] [address] | + + + | Home Phone | | + + + | Preferred Language | Unknown | + + + | Marital Status | | + + + | Jew Affiliation | 1073 | + + + [...] [place] | | | | | [address] | | + + + + + | Jesus Chanel | KARYN | [address] | | | | | [place] [address] | | + + + + + Care Team Providers + +------+ + | Care Rn Obgyn Name | Role | Phone | + [...] + + | 04/21/ | Telephone | [facility] | Jaspreet Newman DO | Referral | | 2019 | | NEUROSURGERY [address] | | | | | [address] | [address] | | | | | [place], [place] | [place] [address] | | | | | [address] | [phone] | | | | | [phone] | | | +--------+ + + + [...] B | | | | | | [place] [address] | | | | | | [phone] | | | | | | | | +--------+---------+ + + + documented as of this encounter Visit Diagnoses Not on filedocumented in this encounter"
--- OUTSIDE RECORDS SUMMARY | ~2019-08-12 | XMS | Encounter Summary ---
Demographics + + + | Address | [address] | | | [place] [address] | + + + | Home Phone | | + + + | Preferred Language | Unknown | + + + | Marital Status | | + + + | Jain Affiliation | 1073 | + + + [...] [place] | | | | | [address] | | + + + + + | Jesus Chanel | KARYN | [address] | | | | | [place] [address] | | + + + + + Care Team Providers + +------+ + | Care Firefighting Equipment Specialist Name | Role | Phone | [...] | +--------+ + + + + | 03/08/ | Telephone | [facility] [place] | Faustino Aquino, | Results, Imaging | | 2017 | | PHYSIATRY [address] | MD [address] | | | | | [address] | [place] | | | | | [place] | [address] | | | | | [address] | | | | | | [phone] | | | +--------+ + + + [...] | | | | | [place] [address] | | | | | | [phone] | | | | | | | | +--------+---------+ + + + documented as of this encounter Visit Diagnoses Not on filedocumented in this encounter"
--- OUTSIDE RECORDS SUMMARY | ~2019-08-12 | XMS | Encounter Summary ---
Demographics + + + | Address | [address] | | | [place] [address] | + + + | Home Phone [...] [place] | | | | | [address] | | + + + + + | Jesus Chanel | ECON | [address] | | | | | [place] [address] | | + + + + + Care Team Providers + +------+ + | Care Hazardous Materials Waste Technician Name | Role | Phone [...] | | | abdominal | | [place] [address] | | | | | pain | | Phone: | | | | | Unintentiona | | [phone] | | | | | l weight | | Fax: | | | | | loss | | [phone] | | | | | Allergy to [...] | | | | | | | [place] | | | | | | | ESOPHAGOGAST | | | | | | | RODUODENOSCO | | | | | | | PY TRANSORAL | | | | | | | DIAGNOSTIC | | | | | | | [place] EGD | | | | | | | TRANSORAL | | | | | | | BIOPSY | | | | | | | SINGLE/MULTI | | | | | | | PLE [place] | | | | | | | COLONOSCOPY | | | | | | | FLX DX | | | | | | | W/COLLJ SPEC | | | | | | | WHEN PFRMD | | | | | | | [place] | | | | | | | COLONOSCOPY | | | | | | | W/BIOPSY | | | | | | | SINGLE/MULTI | | | | | | | PLE [place] | | | | | | | COLSC FLX | | | | | | | W/RMVL OF | | | | | | | TUMOR POLYP | | | | | | | LESION SNARE | | | | | | | TQ [place] | | | | | | | [...] + + | 06/20/ | Hospital | [facility] | Josue Vazquez | Diarrhea, | | 2020 | Encounter | [facility] | MD [address] | unspecified type; | | | | [address] | [address] [place] | Generalized | | | | [place], [place] | [place] [address] | abdominal pain; | | | | [address] | [phone] | Unintentional weight | | | | [phone] | | loss; Allergy to | | [...] B | | | | | | [place] [address] | | | | | | [phone] | | | | | | | [...]
--- OUTSIDE RECORDS SUMMARY | ~2019-08-12 | XMS | Encounter Summary ---
Demographics + + + | Address | [address] | | | [place] [address] | + + + | Home Phone [...] [place] | | | | | [address] | | + + + + + | Jesus Chanel | ECON | [address] | | | | | [place] [address] | | + + + + + Care Team Providers + +------+ + | Care Portfolio Administrator Name | Role | Phone | + +------+ + PCP | Unavailable | + +------+ + Encounter Details +--------+ + + + + | Date | Type | Department | Care Team | Description | +--------+ + + + + | 09/01/ | Hospital | [facility] | | | | 1999 | Encounter | [facility] | | | | | | CENTER [address] | | | | | | [place], [place] | | | | | | [address] | | | | | | [phone] | | | +--------+ + + + [...] B | | | | | | [place] [address] | | | | | | [phone] | | | | | | | | +--------+---------+ + + + documented as of this encounter Visit Diagnoses Not on filedocumented in this encounter"
--- OUTSIDE RECORDS SUMMARY | ~2019-08-12 | XMS | Encounter Summary ---
Demographics + + + | Address | [address] | | | [place] [address] | + + + | Home Phone | | + + + | Preferred Language | Unknown | + + + | Marital Status | | + + + | Yazidi Affiliation | 1073 | + + + | Race | Unknown | + + + | Ethnic Group | Unknown | + + + Author + + + | Author | [facility] | | | and Vaughn | + + + | Organization | [facility] | | | [...] [place] | | | | | [address] | | + + + + + | Jesus Chanel | KARYN | [address] | | | | | [place] [address] | | + + + + + Care Team Providers + +------+ + | Care Guest Service Supervisor Name | Role | Phone | [...] Dx); H/O | | | | [address] [place], [place] | [place] [address] | failed conscious | | | | [address] | [phone] | sedation; | | | | [phone] | | Generalized | | | | [...] and a llergies were reviewed; rx to [facility]; info given to pt; completed case request ord er, notes to MA. documented in th is encounter Plan of Treatment +--------+---------+ + + + | Date | Type | Specialty | Care Team | Description | +--------+---------+ + + + | 08/13/ | Office | Neurosurgery | João Hill, | | 2019 | Visit | | BANKING CENTER MANAGER [address] | | | [address] | | [address] | | | | | | [place] [address] | | | | | | [phone] | | | | | | | [...]
--- OUTSIDE RECORDS SUMMARY | ~2019-08-12 | XMS | Encounter Summary ---
Demographics + + + | Address | [address] | | | [place] [address] | + + + | Home Phone | | + + + | Preferred Language | Unknown | + + + | Marital Status | | + + + | Mosque Affiliation | 1073 | + + + | Race | Unknown | + + + | Ethnic Group | Unknown | + + + Author + + + | Author | [facility] | | | and Vaughn | + + + | Organization | [facility] | | | [...] [place] | | | | | [address] | | + + + + + | Jesus Chanel | ECON | [address] | | | | | [place] [address] | | + + + + + Care Team Providers + +------+ + | Care Housekeeping Coordinator Name | Role | Phone | + +------+ + PCP | Unavailable | + +------+ + Encounter Details +--------+ + + + + | Date | Type | Department | Care Team | Description | +--------+ + + + + | 11/16/ | Hospital | [facility] | | | | 2001 | Encounter | MED CTR XRAY [address] | | | | | | [address]ravan [address]re[place] | | | | | | [place] [address] | | | | | | [phone] | | | +--------+ + + + [...] | | | | | [place] [address] | | | | | | [phone] | | | | | | | | +--------+---------+ + + + documented as of this encounter Visit Diagnoses Not on filedocumented in this encounter"
--- OUTSIDE RECORDS SUMMARY | ~2019-08-12 | XMS | Encounter Summary ---
Demographics + + + | Address | [address] | | | [place] [address] | + + + | Home Phone | | + + + | Preferred Language | Unknown | + + + | Marital Status | | + + + | Latter-Day Affiliation | 1073 | + + + [...] [place] | | | | | [address] | | + + + + + | Jesus Chanel | ECON | [address] | | | | | [place] [address] | | + + + + + Care Team Providers + +------+ + | Care Personal Investment Adviser Name | Role | Phone | + [...] | Faustino Alejandre MD | [address] | | | | | bowel Full | [address] | [place], | | | | | incontinence | [address] | [place] | | | | | of feces | [place], | [address] | | | | | Chronic | [place] [address] | Phone: | | | | | midline low | Phone: | [phone] | | | | | back pain | [phone] | Fax: | | | | | with | Fax: | [phone] | | | | | bilateral | [phone] | | | | | | sciatica [...] | Faustino Alejandre MD | [address] | | | | | bowel Full | [address] | [place], | | | | | incontinence | [address] | [place] | | | | | of feces | [place], | [address] | | | | | Chronic | [place] [address] | Phone: | | | | | midline low | Phone: | [phone] | | | | | back pain | [phone] | Fax: | | | | | with | Fax: | [phone] | | | | | bilateral | [phone] | | | | | | sciatica [...] + + | 03/07/ | Hospital | [facility] | Faustino Aquino, | Neurogenic bowel; | | 2018 | Encounter | MED CTR MRI [address] | MD [address] | Full incontinence of | | | | [address] [place], | [place], [place] | feces; Chronic | | | | [place] [address] | [address] | midline low back | | | | [phone] | | pain with bilateral | | [...] | | 2020 | Visit | | CRITICAL SYSTEMS TECHNICIAN [address] | | | | | | [address] | | | | | | [place] [address] | | | | | | [phone] | | | | | | | [...]
--- OUTSIDE RECORDS SUMMARY | ~2019-08-12 | XMS | Encounter Summary ---
Demographics + + + | Address | [address] | | | [place] [address] | + + + | Home Phone | | + + + | Preferred Language | Unknown | + + + | Marital Status | | + + + | Samaritan Affiliation | 1073 | + + + | Race | Unknown | + + + | Ethnic Group | Unknown | + + + Author + + + | Author | [facility] | | | and Vaughn | + + + | Organization | [facility] | | [...] [place] | | | | | [address] | | + + + + + | Jesus Chanel | ECON | [address] | | | | | [place] [address] | | + + + + + Care Team Providers + +------+ + | Care Senior Qc Technician Name | Role | Phone | [...] + + | 07/18/ | Emergency | [facility] | Nabil Mccurdy, | Chronic pelvic pain | | 2016 - | | MED CTR EMERGENCY | MD [address] | in female (Primary | | | | CENTER [address] | [place] | Dx) | | 07/19/ | | [place] | [address] | | | 2015 | | [address] | | | | | | [phone] | | | +--------+ + + + [...] | | 2019 | Visit | | BENCH LOOM WEAVER [address] | | | | | [address] | | | | | | [place] [address] | | | | | | [phone] | | | | | | | [...] - 1.030 | [facility] | | | [place], | | | [facility] | | [...] [address] | [place] | [phone] | | [facility] | | [address] | | | - LABORATORY | | [...]
--- OUTSIDE RECORDS SUMMARY | ~2019-08-12 | XMS | Encounter Summary ---
Demographics + + + | Address | [address] | | | [place] [address] | + + + | Home Phone [...] [place] | | | | | [address] | | + + + + + | Jesus Chanel | ECON | [address] | | | | | [place] [address] | | + + + + + Care Team Providers + +------+ + | Care Auctioneer Art Name | Role | Phone | + [...] | | | | | [address] [facility] | | | | | | [place], [place] | | | | | | [address] | | | | | | [phone] | | | +--------+ + + + [...] | 08/13/ | Office | Neurosurgery | oJão [place], | | | 2019 | Visit | | LAYOUT MECHANIC [address] | | | | | | [place] | | | | | | [place] [address] | | | | | | [phone] | | | | | | | [...]
--- OUTSIDE RECORDS SUMMARY | ~2019-08-12 | XMS | Encounter Summary ---
Demographics + + + | Address | [address] | | | [place] [address] | + + + | Home Phone [...] [place] | | | | | [address] | | + + + + + | Jesus Chanel | KARYN | [address] | | | | | [place] [address] | | + + + + + Care Team Providers + +------+ + | Care Manager Secondary Name | Role | Phone | + [...] + + | 03/08/ | Telephone | [facility] [place] | Faustino Aquino, | Results, Imaging | | 2017 | | PHYSIATRY [address] | MD [address] | | | | | [address] | [place] | | | | | [place] | [address] | | | | | [address] | | | | | | [phone] | | | +--------+ + + + [...] | | | | | [place] [address] | | | | | | [phone] | | | | | | | | +--------+---------+ + + + documented as of this encounter Visit Diagnoses Not on filedocumented in this encounter"
--- OUTSIDE RECORDS SUMMARY | ~2019-08-12 | XMS | Encounter Summary ---
Demographics + + + | Address | [address] | | | [place] [address] | + + + | Home Phone [...] [place] | | | | | [address] | | + + + + + | Jesus Chanel | ECON | [address] | | | | | [place] [address] | | + + + + + Care Team Providers + +------+ + | Care Technical Buyer Name | Role | Phone | + [...] | | | | | tunnel | [address] | [place], | | | | | syndrome | [place], | [place] [address] | | | | | Numbness and | [place] [address] | Phone: | | | | | tingling in | Phone: | [phone] | | | | | both hands | [phone] | Fax: | | | | | Hand | Fax: | [phone] | | | | | weakness | [phone] | | +--------+ + + + + [...] bowel Full | [address] | | | | n | incontinence | [address] | [place], | | | | | of feces | [place], | [place] [address] | | | | | Chronic | [place] [address] | Phone: | | | | | midline low | Phone: | [phone] | | | | | back pain | [phone] | Fax: | | | | | with | Fax: | [phone] | | | | | bilateral | [phone] | | | | | | sciatica [...] | | | | | | | DC MOTOR | | | | | | | &/SENS 13/> | | | | | | | NRV CNDJ | | | | | | | PRECONF | | | | | | | ELTRODE LIMB | | | | | | | DC NEEDLE | | | | | | | EMG EA | | | | | | | EXTREMITY | | | | | | | W/PARASPINL | | | | | | | AREA LIMITED | | | | | | | DC NEEDLE | | | | | | | EMG EA | | | | | | | EXTREMTY | | | | | | | W/PARASPINL | | | | | | | AREA | | | | | | | COMPLETE [place] | | | | | | | OFFICE | | | | | | | OUTPATIENT | | | | | | | VISIT 40 | | | | | | | MINUTES [place] | | | | | | | [...] PHYSIATRY [address] | MD [address] | tunnel syndrome | | | | [address] | [place], [place] | (Primary Dx); | | | | [place] | [address] | Numbness and | | | | [address] | | tingling in both | | | | [phone] | | hands; Hand | | | [...] testing. You will need [facility] stay [facility] for 2 hours to complete [...] might be different fro m the original. [facility] Physical Medicine & Rehabilitation [address] [place] [address], [address] [place] [address] Test Date: 03/15/2018 Patient Name: Karla Chanel : 1950 Physician: Faustino Aquino MD (Jr.) MR #: [id number] Sex: Female Referring Physician: Geraldo Montano MD HISTORY: Yamileth Chanel has chronic neck pain present for decades. She reports pain, numbness, weakness in both upper extremities present for 5+ years. She reports being diagnosed with carpal tunnel syndrome in the distant past, but she didn't do anything to treat it at the [facility]. She denies history of diabetes. 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 She has never tried using carpal [...] both upper extremities. Motor exam demonstrates 4/5 avionics systems technician strength in both hands. Motor exam demonstrates [...] Site1 Site2 L Ve l (m/s) R Darren (m/s) L-R Darren (m/s) Median Motor (Abd [...] from 03/07/2018 imaging was personally reviewed by nj. I concur with findings as reported by the radiologist. There is no evidence of cervical myelomalacia. There is m oderate cervical spinal stenosis at C4-5 and C6-7. There is severe neural foraminal narrowi ng at right C4-5 and left C5-6. There is moderate neural foraminal narrowing at left C4-5, left C7-T1 and bilaterally C6-7. Lumbar MRI from 03/07/2018 imaging was personally reviewed by nj. I concur with findings a s reported [...] B | | | | | | [place] [address] | | | | | | [phone] | | | | | | | [...]
--- OUTSIDE RECORDS SUMMARY | ~2019-08-12 | XMS | Encounter Summary ---
Demographics + + + | Address | [address] | | | [place] [address] | + + + | Home Phone | | + + + | Preferred Language | Unknown | + + + | Marital Status | | + + + | Sikhism Affiliation | 1073 | + + + | Race | Unknown | + + + | Ethnic Group | Unknown | + + + Author + + + | Author | [facility] | | | and Vaughn | + + + | Organization | [facility] | | [...] [place] | | | | | [address] | | + + + + + | Jesus Chanel | ECON | [address] | | | | | [place] [address] | | + + + + + Care Team Providers + +------+ + | Care Sfdc Developer Name | Role | Phone | + [...] | | | | | incontinence | [address] | [place] | | | | | of feces | [place], | [place] | | | | | Chronic | [place] [address] | [address] | | | | | midline low | Phone: | ST | | | | | back pain | [phone] | [facility] | | | | | with | Fax: | [place], [place] | | | | | bilateral | [phone] | [address] | | | | | sciatica | | Phone: | | | | | Cervicalgia | | [phone] | | | | | Hand | | Fax: | | | | | weakness | | [phone] | | | | | Numbness and [...] bowel Full | [address] | [address] | | | | n | incontinence | [address] | [place], | | | | | of feces | [place], | [place] [address] | | | | | Chronic | [place] [address] | Phone: | | | | | midline low | Phone: | [phone] | | | | | back pain | [phone] | Fax: | | | | | with | Fax: | [phone] | | | | | bilateral | [phone] | | | | | | sciatica [...] | | | | | | | [place] MOTOR | | | | | | | &/SENS 13/> | | | | | | | NRV CNDJ | | | | | | | PRECONF | | | | | | | ELTRODE LIMB | | | | | | | [place] NEEDLE | | | | | | | EMG EA | | | | | | | EXTREMITY | | | | | | | W/PARASPINL | | | | | | | AREA LIMITED | | | | | | | [place] NEEDLE | | | | | | | EMG EA | | | | | | | EXTREMTY | | | | | | | W/PARASPINL | | | | | | | AREA | | | | | | | COMPLETE [place] | | | | | | | OFFICE | | | | | | | OUTPATIENT | | | | | | | VISIT 40 | | | | | | | MINUTES [place] | | | | | | | [...] | Faustino Alejandre MD | [address] | | | | | Hand | [address] | [place], | | | | | weakness | [address] | [place] | | | | | Numbness and | [place], | [address] | | | | | tingling in | [place] [address] | Phone: | | | | | both hands | Phone: | [phone] | | | | | | [phone] | Fax: | | | | | Hyperreflexi | Fax: | [phone] | | | | | a | [phone] | | | | | | Fibromyalgia [...] | Faustino Alejandre MD | [address] | | | | | bowel Full | [address] | [place], | | | | | incontinence | [address] | [place] | | | | | of feces | [place], | [address] | | | | | Chronic | [place] [address] | Phone: | | | | | midline low | Phone: | [phone] | | | | | back pain | [phone] | Fax: | | | | | with | Fax: | [phone] | | | | | bilateral | [phone] | | | | | | sciatica [...] pain Neck | [address] | | | | n | pain | [address] | [place], | | | | | | [place], | [place] [address] | | | | | | [place] [address] | Phone: | | | | | | Phone: | [phone] | | | | | | [phone] | Fax: | | | | | | Fax: | [phone] | | | | | | [phone] | | +--------+--------+ + + + + Encounter Details +--------+---------+ + + + | Date | Type | Department | Care Team | Description | +--------+---------+ + + + | 02/11/ | Office | [facility] | Faustino Aquino, | Neurogenic bowel | | 2018 | Visit | PHYSIATRY [address] | [address] | (Primary Dx); Full | | | | [address] | [place] | incontinence of | | | | [place] | [address] | feces; Chronic | | | | [address] | | midline low back | | | | [phone] | | pain with bilateral | | [...] physical therapy within one week, please contact [facility]. Once you have completed physical [...] fro m the original. Faustino Aquino MD [address] [place] [address], [address] [place], [place] [address] FAX: PHYSICAL MEDICINE AND REHABILITATION H&P CHIEF [...] nxiety or seizures. Fill when due @@ [facility] clonazePAM (KLONOPIN) 1 mg tablet 1/2 twice [...] has no apparent deficits with short or ad terminal makeup operator memory. 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
--- OUTSIDE RECORDS SUMMARY | ~2019-08-12 | XMS | Encounter Summary ---
Demographics + + + | Address | [address] | | | [place] [address] | + + + | Home Phone | | + + + | Preferred Language | Unknown | + + + | Marital Status | | + + + | Mandaeism Affiliation | 1073 | + + + [...] [place] | | | | | [address] | | + + + + + | Jesus Chanel | ECON | [address] | | | | | [place] [address] | | + + + + + Care Team Providers + +------+ + | Care Professional Fee Coder Name | Role | Phone | + [...] + + | 05/07/ | Emergency | [facility] | Armand Quintanilla MD | Back pain, | | 2020 | | MED CTR EMERGENCY | [address] | unspecified back | | | | CENTER [address] | [place] | location, | | | | [place], [place] | [address] | unspecified back | | | | [address] | | pain laterality, | | | | [phone] | | unspecified | | | | [...] through Care Everywhere.Acetaminophen; Hydrocodone tablets or capsules (Cameroonian)documented in this encounter Medications at Time of [...] | | | | | | [facility] | | | | | | [place] [address] | | | | | | [phone] | | | | | | | [...] | | | | | [place] [address], | | | | | | + + + + +------+------+ +---+---+ | | | +---+---+ documented in this encounter
--- OUTSIDE RECORDS SUMMARY | ~2019-08-12 | XMS | Encounter Summary ---
Demographics + + + | Address | [address] | | | [place] [address] | + + + | Home Phone | | + + + | Preferred Language | Unknown | + + + | Marital Status | | + + + | Scientologist Affiliation | 1073 | + + + | Race | Unknown | + + + | Ethnic Group | Unknown | + + + Author + + + | Author | [facility] | | | and Vaughn | + + + | Organization | [facility] | | | [...] [place] | | | | | [address] | | + + + + + | Serjio Chanel | ECON | [address] | | | | | [place] [address] | | + + + + + Care Team Providers + +------+ + | Care Home Security Professional Name | Role | Phone | + [...] | | Diarrhea, | Josue | [address] | | | | | unspecified | MD [place] | [place], | | | | | type | [address] | [place] [address] | | | | | Generalized | [place] | Phone: | | | | | abdominal | [place], [place] | [phone] | | | | | pain | [address] | Fax: | | | | | Unintentiona | Phone: | [phone] | | | | | l weight | [phone] | | | | | | loss | Fax: | | | | | | Procedures | [phone] | | | | | | CT [...] | | | | Noninfective | [address] | ogy [address] | | | | | | [address] | [address] | | | | | gastroenteri | [place], | [address] [place] | | | | | tis and | [place] [address] | [place], [place] | | | | | colitis, | Phone: | [address] | | | | | unspecified | [phone] | Phone: | | | | | | Fax: | [phone] | | | | | | [phone] | Fax: | | | | | | | [phone] | +--------+--------+ + + + + Encounter Details +--------+---------+ + + + | Date | Type | Department | Care Team | Description | +--------+---------+ + + + | 05/22/ | Office | [facility] | Josue Vazquez | H/O failed conscious | | 2020 | Visit | GASTROENTEROLOGY | MD [address] | sedation (Primary | | | | [address] | [address] [place] | Dx); Diarrhea, | | | | [address] [place], [place] | [place], [place] [address] | unspecified type; | | | | [address] | [phone] | Generalized | | | | [phone] | | abdominal pain; | | | [...] Visit: 05/22/19 Referring Provider: Geraldo Montano MD [address] [place] [address] Providing Physician: Josue Vazquez MD. Chief Complaint: [...] she is going to see neurosurgery at [facility] tomorrow where they are planning on [...] Socioeconomic History Marital status: Spouse name: SERJIO HCANEL Number of children: Not on file Years [...] on file. CC: Geraldo Montano MD [address] [place] [address] Geraldo Montano MD[address] [facility] [address] Portions of this chart may have been created with in[employer] voice recognition software. Occasi onal wrong-word or [...] | | 2019 | Visit | | NITROGLYCERIN DISTRIBUTOR [address] | | | | | | [address] | | | | | | [place] [address] | | | | | | [phone] | | | | | | | [...]
--- OUTSIDE RECORDS SUMMARY | ~2019-08-12 | XMS | Encounter Summary ---
Demographics + + + | Address | [address] | | | [place] [address] | + + + | Home Phone [...] [place] | | | | | [address] | | + + + + + | Jesus Chanel | KARYN | [address] | | | | | [place] [address] | | + + + + + Care Team Providers + +------+ + | Care Stone Grader Name | Role | Phone | + +------+ + | Geraldo Montano MD | PCP | | + +------+ + Encounter Details +--------+ + + + + | Date | Type | Department | Care Team | Description | +--------+ + + + + | 02/11/ | Hospital | [facility] | Faustino Aquino, | Cervicalgia; Hand | | 2018 | Encounter | MED CTR XRAY [address] | MD [address] | weakness; Numbness | | | | [place] | [place], [place] | and tingling in both | | | | [place] [address] | [address] | hands; | | | | [phone] | | Hyperreflexia; | | | | [...] | | 2019 | Visit | | RESAW MACHINE 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
[~2019-08-12 01:05] MED LIST: HYDROCHLOROTH12.5 MG PO; PANCREAZE DR 11 EAC3 PO; VERAPAMIL ER180 MG PO
--- OUTSIDE RECORDS SUMMARY | 2019-08-12 01:08 | XMS ---
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 Annabel VISIT COUNT (12 MO.) [address] [place] [address] [facility] [address] [place], [place] [address]ure Salguero TOTAL 6 NOTE: Visits indicate total known visits. ED/UCC VISIT TRACKING (12 MO.) 08/12/2019 01:05 [facility]IT[facility] Merino TYPE: Emergency COMPLAINT: - FALL [facility] DIAGNOSES: - Lumbago with sciatica, right side - back pain [facility] DIAGNOSES: - Other chronic pain - Back Pain - Low back pain - PN/Numbness Legs/Arms - Paresthesia of skin - Numbness 06/10/2019 05:22 [facility] TYPE: Emergency COMPLAINT: - BACK PAIN DIAGNOSES: - Nicotine dependence, unspecified, uncomplicated - Allergy status to other drugs, medicaments and biological sub - Low back pain - Other nursing home (current) drug therapy - Allergy status to narcotic agent status - Other chronic pain [facility]07[facility]2019 [facility] DIAGNOSES: - Dorsalgia, unspecified - Pain - severe nerve pain 04/20/2019 18[facility]23 [facility] DIAGNOSES: - back pain - Spinal stenosis, lumbar region without neurogenic claudicatio - Lumbago with sciatica, unspecified side INPATIENT VISIT TRACKING (12 MO.) No inpatient visits to display in this time frame [id number]
[2019-08-12] MEDS ORDERED: ZANAFLEX4 MG PO (01:19)
[2019-08-12] MEDS ORDERED: VERAPAMIL ER120 M1 PO (01:19)
[2019-08-12] MEDS ORDERED: MOBIC7.5 MG PO (01:19)
[2019-08-12] MEDS ORDERED: SERTRALINE HCL50 MG PO (01:20)
[2019-08-12] MEDS ORDERED: GABAPENTIN300 MG PO (01:20)
== END 2019-08-12 02:19 | disposition home or self-care (01) ==
LOC: ED 01:05
DX: G89.29 Other chronic pain (principal); M54.5 Low back pain; W18.30XA Fall on same level, unspecified, initial encounter
CPT/HCPCS: 99283

== ENCOUNTER 2019-08-18 02:11 | Emergency (ER) | payer BC, MEDICARE ==
[~2019-08-18] VITALS: Ht 154.9 cm; Wt 64.0 kg
[~2019-08-18 02:11] MED LIST changes: +GABAPENTIN300 MG PO; +MOBIC7.5 MG PO; +SERTRALINE HCL50 MG PO; +VERAPAMIL ER120 M1 PO; +ZANAFLEX4 MG PO
--- OUTSIDE RECORDS SUMMARY | 2019-08-18 02:14 | XMS ---
PreManage Notification: KAILASH FERNANDEZ Security Director Employee Safety And Health Events No recent Security Events currently on file CRITERIA MET - 6 ED Visits in 6 Months - [facility] - 2 Visits in 30 Days CARE PROVIDERS VERO PEÑA Family [facility] Current PHONE: Unknown SERJIO BUTTS Emergency Medicine 06/12/2019-Oleksandr [facility] PHONE: Unknown Haroon has no Care Guidelines for this patient. EIhsan VISIT COUNT (12 MO.) [address] [place], [place] [address] TOTAL 7 NOTE: Visits indicate total known visits. ED/UCC VISIT TRACKING (12 MO.) 08/18/2019 02:11 [facility] [place] TYPE: Emergency COMPLAINT: - ACCIDENTAL OD 08/12/2019 01:05 [facility] [place] TYPE: Emergency COMPLAINT: - FALL DIAGNOSES: - Other chronic pain - Fall on same level, unspecified, initial encounter - Low back pain [facility] DIAGNOSES: - Lumbago with sciatica, right side - back pain 06/11/2019 01:37 [facility] DIAGNOSES: - Other chronic pain - Back Pain - Low back pain - PN/Numbness Legs/Arms - Paresthesia of skin - Numbness 06/10/2019 05:22 [facility] TYPE: Emergency COMPLAINT: - BACK PAIN DIAGNOSES: - Nicotine dependence, unspecified, uncomplicated - Allergy status to other drugs, medicaments and biological sub - Low back pain - Other mcfp (current) drug therapy - Allergy status to narcotic agent status - Other chronic pain 05/07/2019 19:40 [facility] DIAGNOSES: - Dorsalgia, unspecified - Pain - severe nerve pain 04/20/2019 18:23 [place] [facility] [place] TYPE: Emergency DIAGNOSES: - back pain - Spinal stenosis, lumbar region without neurogenic claudicatio - Lumbago with sciatica, unspecified side INPATIENT VISIT TRACKING (12 MO.) No inpatient visits to display in this time frame [email or web address]
--- NOTE | 2019-08-18 17:40 | EKG ---
[facility] [address] [facility] [place], [place] [address] Signed Normal sinus rhythm Nonspecific ST abnormality Abnormal ECG No previous ECGs available Confirmed by MIHAI MO DO ([id number]) on 08/18/2019 5:40:26 PM Electronically Signed By: MIHAI MO DO 08/18/19 1740 PATIENT NAME: KAILASH FERNANDEZ Electrocardiogram DATE OF : 52 PHYSICIAN: MIHAI MO DO REPORT #: [id number] REPORT IS CONFIDENTIAL AND NOT TO BE RELEASED WITHOUT AUTHORIZATION
== END 2019-08-18 11:05 | disposition home or self-care (01) ==
LOC: ED 02:11
DX: T43.221A Poisoning by selective serotonin reuptake inhibitors, accidental (unintentional), initial encounter (principal); F17.200 Nicotine dependence, unspecified, uncomplicated; Z88.6 Allergy status to analgesic agent; Z88.5 Allergy status to narcotic agent; Z79.899 Other long term (current) drug therapy
CPT/HCPCS: 80053; 80176; 85025; 85610; 85730; 93005; 93010; 99284-25; G0480; J7030

== ENCOUNTER 2019-08-28 15:44 | Emergency (ER) | payer BC, MEDICARE ==
[~2019-08-28] VITALS: Ht 154.9 cm; Wt 64.0 kg
--- OUTSIDE RECORDS SUMMARY | 2019-08-28 15:48 | XMS ---
PreManage Notification: KAILASH FERNANDEZ Security Trial Management Associate Events No recent Security Events currently on file CRITERIA MET - 6 ED Visits in 6 Months - [facility] - 2 Visits in 30 Days CARE PROVIDERS VERO PE[facility] Current PHONE: Unknown SERJIO BUTTS Emergency Medicine 06/12/2019-Oleksandr [facility] PHONE: Unknown Haroon has no Care Guidelines for this patient. EIhsan VISIT COUNT (12 MO.) [address] [place], [place] [id number] TOTAL 8 NOTE: Visits indicate total known visits. ED/UCC VISIT TRACKING (12 MO.) 08/28/2019 15:[address] [facility] [place] TYPE: Emergency COMPLAINT: - MEDICAL CLEARANCE 08/18/2019 02:11 [facility] [place] TYPE: Emergency COMPLAINT: - ACCIDENTAL OD DIAGNOSES: - Nicotine dependence, unspecified, uncomplicated - Other skilled nursing (current) drug therapy - Poisoning by selective serotonin reuptake inhibitors, acciden - Allergy status to narcotic agent status - Allergy status to analgesic agent status 08/12/2019 01:05 [facility] TYPE: Emergency COMPLAINT: - FALL DIAGNOSES: - Other chronic pain - Fall on same level, unspecified, initial encounter - Low back pain [facility] DIAGNOSES: - Lumbago with sciatica, right side - back pain 06/11/2019 01:[facility] DIAGNOSES: - Other chronic pain - Back Pain - Low back pain - PN/Numbness Legs/Arms - Paresthesia of skin - Numbness 06/10/2019 05:22 [facility] TYPE: Emergency COMPLAINT: - BACK PAIN DIAGNOSES: - Nicotine dependence, unspecified, uncomplicated - Allergy status to other drugs, medicaments and biological sub - Low back pain - Other ferry terminal agent (current) drug therapy - Allergy status to narcotic agent status - Other chronic pain 05/07/2019 19:40 [facility] DIAGNOSES: - Dorsalgia, unspecified - Pain - severe nerve pain 04/20/2019 18:23 [facility] DIAGNOSES: - back pain - Spinal stenosis, lumbar region without neurogenic claudicatio - Lumbago with sciatica, unspecified side INPATIENT VISIT TRACKING (12 MO.) No inpatient visits to display in this time frame [email or web address]
[2019-08-28] MEDS ORDERED: ZOLOFT100 MG PO (16:20)
[2019-08-28] MEDS ORDERED: CYCLOBENZAPRINE10 MG PO (16:22)
[2019-08-28] MEDS ORDERED: HYDROCODON-ACE1 EA10 PO (16:22)
== END 2019-08-30 07:13 | disposition short-term general hospital (02) ==
LOC: ED 15:44
DX: F32.9 Major depressive disorder, single episode, unspecified (principal); F22 Delusional disorders; F17.200 Nicotine dependence, unspecified, uncomplicated; Z79.899 Other long term (current) drug therapy
CPT/HCPCS: 80053; 80176; 81001; 84443; 85025; 99284; G0480

== ENCOUNTER 2019-12-19 10:23 | Emergency (ER) | payer BC, MEDICARE ==
[~2019-12-19] VITALS: Ht 154.9 cm; Wt 44.7 kg
[~2019-12-19 10:23] MED LIST changes: +CYCLOBENZAPRINE10 MG PO; +HYDROCODON-ACE1 EA10 PO; +ZOLOFT100 MG PO
--- OUTSIDE RECORDS SUMMARY | 2019-12-19 10:26 | XMS ---
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 Annabel VISIT COUNT (12 MO.) [address] TOTAL 9 NOTE: Visits indicate total known visits. ED/UCC VISIT TRACKING (12 MO.) 12/19/2019 10:24 [facility] [place] TYPE: Emergency COMPLAINT: - PSYCHOSIS 08/28/2019 15:45 [facility] [place] TYPE: Emergency COMPLAINT: - MEDICAL CLEARANCE DIAGNOSES: - Encounter for other general examination - Nicotine dependence, unspecified, uncomplicated - Major depressive disorder, single episode, unspecified - Delusional disorders - Other longterm (current) drug therapy 08/18/2019 02:11 [facility] TYPE: Emergency COMPLAINT: - ACCIDENTAL OD DIAGNOSES: - Nicotine dependence, unspecified, uncomplicated - Other longterm (current) drug therapy - Poisoning by selective serotonin reuptake inhibitors, acciden - Allergy status to narcotic agent status - Allergy status to analgesic agent status 08/12/2019 01:05 [facility] TYPE: Emergency COMPLAINT: - FALL DIAGNOSES: - Other chronic pain - Fall on same level, unspecified, initial encounter - Low back pain [facility]2019 [facility] DIAGNOSES: - Lumbago with sciatica, right side - back pain 06/11/2019 01[facility] DIAGNOSES: - Other chronic pain - Back Pain - Low back pain - PN/Numbness Legs/Arms - Paresthesia of skin - Numbness 06/10/2019 05:22 [facility] [place] TYPE: Emergency COMPLAINT: - BACK PAIN DIAGNOSES: - Nicotine dependence, unspecified, uncomplicated - Allergy status to other drugs, medicaments and biological sub - Low back pain - 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 - Allergy status to narcotic agent status - Other chronic pain 05/07/2019 19:[facility] DIAGNOSES: - Dorsalgia, unspecified - Pain - severe nerve pain 04/20/2019 18:[facility] DIAGNOSES: - back pain - Spinal stenosis, lumbar region without neurogenic claudicatio - Lumbago with sciatica, unspecified side INPATIENT VISIT TRACKING (12 MO.) 08/30/2019 11:21 [facility] [place] TYPE: Longterm COMPLAINT: - UNSPECIFID PSYCHOSIS DIAGNOSES: - Other bipolar disorder [email or web address]
--- NOTE | 2019-12-19 17:21 | EKG ---
[facility] [address] [facility] [place], [place] [address] Signed Normal sinus rhythm Normal ECG When compared with ECG of 18-AUG-2019 02:49, No significant change was found Confirmed by MIHAI MO DO ([id number]) on 12/19/2019 5:21:09 PM Electronically Signed By: MIHAI MO DO 12/19/19 1721 PATIENT NAME: KAILASH FERNANDEZ Electrocardiogram DATE OF : 52 PHYSICIAN: MIHAI MO DO REPORT #: [id number] REPORT IS CONFIDENTIAL AND NOT TO BE RELEASED WITHOUT AUTHORIZATION
== END 2019-12-19 22:41 | disposition home or self-care (01) ==
LOC: ED 10:23
DX: F29 Unspecified psychosis not due to a substance or known physiological condition (principal); Z91.14 Patient's other noncompliance with medication regimen; F32.9 Major depressive disorder, single episode, unspecified; Z88.6 Allergy status to analgesic agent; Z88.8 Allergy status to other drugs, medicaments and biological substances; Z79.899 Other long term (current) drug therapy
CPT/HCPCS: 80053; 81001; 83735; 84443; 85025; 93005; 93010; 96372; 99285-25; G0480; J2060; J3486

== ENCOUNTER → 2020-01-16 | Emergency (ER) | payer BC, MEDICARE ==
[~2020-01-16] VITALS: Ht 154.9 cm; Wt 63.5 kg
[~2020-01-16] MED LIST changes: +LORAZEPAM1 MG PO; +OLANZAPINE7.5 MG PO; +VALPROIC ACID250 MG PO; +VERAPAMIL SR120 MG PO
--- OUTSIDE RECORDS SUMMARY | 2020-01-16 18:08 | XMS ---
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 EIhsan VISIT COUNT (12 MO.) [address] [place], [place] [address] TOTAL 10 NOTE: Visits indicate total known visits. ED/UCC VISIT TRACKING (12 MO.) 01/16/2020 18:07 [facility] [place] TYPE: Emergency COMPLAINT: - MEDICAL CLEARANCE 12/19/2019 10:24 [facility] [place] TYPE: Emergency COMPLAINT: - PSYCHOLOGICAL EVALUATION DIAGNOSES: - Patient's other noncompliance with medication regimen - Major depressive disorder, single episode, unspecified - Altered mental status, unspecified - Allergy status to other drugs, medicaments and biological sub - Unspecified psychosis not due to a substance or known physiol - Allergy status to analgesic agent status - Other penitentiary (current) drug therapy 08/28/2019 15:45 [facility] [place] TYPE: Emergency COMPLAINT: - MEDICAL CLEARANCE DIAGNOSES: - Encounter for other general examination - Nicotine dependence, unspecified, uncomplicated - Major depressive disorder, single episode, unspecified - Delusional disorders - 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 08/18/2019 02:11 [facility] [place] TYPE: Emergency COMPLAINT: - ACCIDENTAL OD DIAGNOSES: - Nicotine dependence, unspecified, uncomplicated - Other penitentiary (current) drug therapy - Poisoning by selective serotonin reuptake inhibitors, acciden - Allergy status to narcotic agent status - Allergy status to analgesic agent status 08/12/2019 01:05 [facility] [place] TYPE: Emergency COMPLAINT: - FALL DIAGNOSES: - Other chronic pain - Fall on same level, unspecified, initial encounter - Low back pain 07/03/2019 20:39 [facility] [place] TYPE: Emergency DIAGNOSES: - Lumbago with sciatica, right side - back pain 06/11/2019 01[facility] DIAGNOSES: - Other chronic pain - Back Pain - Low back pain - PN/Numbness Legs/Arms - Paresthesia of skin - Numbness 06/10/2019 05:22 [facility] TYPE: Emergency COMPLAINT: - BACK PAIN DIAGNOSES: - Nicotine dependence, unspecified, uncomplicated - Allergy status to other drugs, medicaments and biological sub - Low back pain - Other penitentiary (current) drug therapy - Allergy status to narcotic agent status - Other chronic pain 05/07/2019 19:[address] [facility] [place] TYPE: Emergency DIAGNOSES: - Dorsalgia, unspecified - Pain - severe nerve pain 04/20/2019 18:23 [facility] [place] TYPE: Emergency DIAGNOSES: - back pain - Spinal stenosis, lumbar region without neurogenic claudicatio - Lumbago with sciatica, unspecified side INPATIENT VISIT TRACKING (12 MO.) 08/30/2019 11:21 E[facility] REIS TYPE: [facility] COMPLAINT: - UNSPECIFID PSYCHOSIS DIAGNOSES: - Other bipolar disorder [id number]
--- NOTE | 2020-01-17 21:09 | PATH ---
[facility] [address] [place], [place] [address] Signed ORDERING PHYSICIAN: Maco RAMIREZ, Jose Taylor PATIENT NAME: KAILASH FERNANDEZ GENDER: F : 1950 Prior History: DATE CASE NUM ADEQUACY DIAGNOSIS HPV RESULTS PHYSICIAN The 5 most recent reports are included. This history does not include results of pap smears performed at another laboratory. SPECIMEN(S): No Source Given MOLECULAR PATHOLOGY RESULTS: SARS-CoV-2 Not Detected ADDITIONAL NOTES.: The [place] Fusion SARS-CoV-2 Assay is a multiplex real-time PCR (RT-PCR) in vitro diagnostic test intended for the qualitative detection of RNA from SARS-CoV-2 from individuals who meet COVID-19 clinical and/or epidemiological criteria. In general, SARS-CoV-2 RNA can be detected during the acute phase of infection. Positive results indicate the presence of SARS-CoV-2 RNA. Clinical correlation with patient history and other diagnostic information is necessary to determine patient infection status. Positive results do not rule out bacterial infection or co-infection with other viruses. Negative results do not preclude SARS-CoV-2 infection and should not be used as the sole basis for patient management decisions. Negative results must be combined with other clinical observations, patient history, and epidemiological information. The [place] Fusion SARS-CoV-2 Assay is not yet approved or cleared by the [place] FDA. When there are no FDA-approved or cleared tests available, and other criteria are met, FDA can make tests available under an emergency access mechanism called an Emergency Use Authorization (EUA). The EUA for this test is supported by the [place] of Health and Human Service's (HHS's) declaration that circumstances exist to justify the emergency use of in vitro diagnostics for the detection and/or diagnosis of the virus that causes COVID-19. This EUA will remain in effect for the duration of the COVID-19 declaration justifying emergency of IVDs, unless it is terminated or PATIENT NAME: KAILASH FENRANDEZ PATHOLOGY DATE OF : 52 REPORT #: [id number] PHYSICIAN: KEN PATHOLOGY PCP: VERO PEÑA MD REPORT IS CONFIDENTIAL AND NOT TO BE RELEASED WITHOUT AUTHORIZATION [facility] [address] [place], [place] [address] Signed revoked by FDA, after which the test may no longer be used. The [place] Fusion SARS-CoV-2 Assay is for use only under EUA in US laboratories certified under the Clinical Laboratory Improvement Amendments of 1988 (CLIA) to perform high complexity tests. [facility] is certified under CLIA to perform high complexity clinical laboratory testing. PERFORMING LABORATORY.: Molecular testing was performed by [facility] [address] [place] [address] (Job Lithographer: Ankit Mcnally D.O.; CLIA#: [id number]) Diagnostician: System Interface Pathologist Electronically Signed 01/17/2020 Copies: ~ PATIENT NAME: KAILASH FERNANDEZ PATHOLOGY DATE OF : 52 REPORT #: [id number] PHYSICIAN: KEN DANIELLE PCP: VERO PEÑA MD REPORT IS CONFIDENTIAL AND NOT TO BE RELEASED WITHOUT AUTHORIZATION
== END ==
LOC: ED 18:06
DX: Z00.8 Encounter for other general examination (principal); F32.9 Major depressive disorder, single episode, unspecified; Z88.8 Allergy status to other drugs, medicaments and biological substances; Z88.5 Allergy status to narcotic agent; Z79.899 Other long term (current) drug therapy
CPT/HCPCS: 80053; 80176; 81001; 84443; 85025; 99285; C9803; G0480